=== PATIENT | male | born 1960 | race Caucasian/White ===

== ENCOUNTER 2017-07-20 09:46 | Inpatient (IN) | payer OTHER ==
[2017-07-20 10:12] VITALS: BMI 26.3
--- NOTE | 2017-07-20 12:26 | HP ---
CIWA Score - CIWA Score Nausea/Vomitin-No Nausea/No Vomiting Muscle Tremors: 3 Anxiety: 4-Mod. Anxious/Guarded Agitation: 0-Normal Activity Paroxysmal Sweats: 2 Orientation: 0-Oriented Tacttile Disturbances: 2-Mild Itch/Numbness/Burn Auditory Disturbances: 0-None Visual Disturbances: 0-None Headache: 1-Very Mild CIWA-Ar Total Score: 12 Admission ROS S - HPI Chief Complaint: ETOH withdrawal symptoms. Allergies/Adverse Reactions: Allergies Allergy/AdvReac Type Severity Reaction Status Date / Time No Known Allergies Allergy Verified 07/20/17 11:41 History of Present Illness: PATIENT PRESENTS FOR ETOH WITHDRAWAL SYMPTOMS. LAST ATTEMPT OF DETOX HERE AT [facility] IN 2010. PATIENT STARTED DRINKING AT AGE 14. PATIENT DRINKS UP TO 12 BEERS DAILY. DENIES SEIZURES FROM USE OR WITHDRAWAL. PATIENT HAS HISTORY OF PANIC ATTACK WHICH IS TREATED WITH KLONIPIN BY PARTHA OSMAN NP AND VERIFIED BY ISTOP # [id number]. PATIENT TAKES MEDICATION PRN. LAST DOSE THIS MORNING AFTER NOT TAKING MEDICATION X ONE WEEK. PATIENT HAS HX OF HIV, HTN, GERD AND HLD. PATIENT REPORTS WHEN HE DRINKS HE DOES NOT TAKE KLONIPIN AND TAKES 1/2 PILL WHEN HE DOES. DENIES SI/HI AND SUICIDE ATTEMPTS. Exam Limitations: No Limitations - Ebola screening Have you traveled outside of the country in the last 21 days: No (N) Have you had contact with anyone from an Ebola affected area: No Have you been sick,other than usual withdrawal symptoms: No Do you have a fever: No - Review of Systems Constitutional: Changes in sleep, Weight Stable EENT: reports: No Symptoms Reported Respiratory: reports: No Symptoms reported Cardiac: reports: No Symptoms Reported GI: reports: Poor Fluid Intake : reports: No Symptoms Reported Musculoskeletal: reports: Back Pain, Joint Pain, Muscle Pain Integumentary: reports: Sweating Neuro: reports: Headache, Numbness, Tremors Endocrine: reports: No Symptoms Reported Hematology: reports: No Symptoms Reported Psychiatric: reports: Orientated x3, Anxious, Depressed Patient History - Patient Medical History Hx Anemia: No Hx Asthma: No Hx Chronic Obstructive Pulmonary Disease (COPD): No Hx Cancer: No Hx Cardiac Disorders: No Hx Congestive Heart Failure: No Hx Hypertension: Yes Hx Hypercholesterolemia: Yes Hx Pacemaker: No HX Cerebrovascular Accident: No Hx Seizures: No Hx Dementia: No Hx Diabetes: No Hx Gastrointestinal Disorders: No Hx Liver Disease: Yes (hep c treated 2005) Hx Genitourinary Disorders: No Hx Sexually Transmitted Disorders: Yes (hiv) Hx Renal Disease (ESRD): No Hx Thyroid Disease: No Hx Human Immunodeficiency Virus (HIV): Yes (treated with Gemvoya, pt advised to have family bring meds) Hx Hepatitis C: Yes (Hep c treated in 2005) Hx Depression: Yes Hx Suicide Attempt: No Hx Schizophrenia: No - Patient Surgical History Past Surgical History: Yes Hx Neurologic Surgery: No Hx Cataract Extraction: No Hx Cardiac Surgery: No Hx Lung Surgery: No Hx Breast Surgery: No Hx Breast Biopsy: No Hx Abdominal Surgery: No Hx Appendectomy: No Hx Cholecystectomy: Yes Hx Genitourinary Surgery: No Hx Orthopedic Surgery: No Anesthesia Reaction: No - PPD History Documented Results: Negative w/o proof Implanted On Prior [facility] Admission?: No PPD to be Administered?: Yes - Reproductive History Patient : No - Smoking Cessation Smoking history: Current some day smoker Aproximately how many cigarettes per day: 1 Hx Chewing Tobacco Use: No Initiated information on smoking cessation: Yes 'Breaking Loose' booklet given: 07/20/17 - Substance & Tx. History Hx Alcohol Use: Yes Hx Substance Use: No Substance Use Type: Alcohol Hx Substance Use Treatment: Yes ([facility] 2010) - Substances Abused Alcohol Route: Oral Frequency: Daily Amount used: Beer 12- 120z Beer Age of first use: 12 Date of Last Use: 07/20/17 Family Disease History - Family Disease History Family Disease History: CA: Father (Prostate cancer, alive) Admission Physical Exam S - Vital Signs Vital Signs: Vital Signs - 24 hr 07/20/17 10:11 Temperature 98 F Pulse Rate 89 Respiratory 18 Rate Blood Pressure 139/81 - Physical General Appearance: Yes: No Apparent Distress, Nourished, Appropriately Dressed , Tremorous, Sweating, Anxious HEENTM: Yes: EOMI, Hearing grossly Normal, Normal ENT Inspection, Normocephalic , Normal Voice, GABBI, Pharynx Normal Respiratory: Yes: Chest Non-Tender, Lungs Clear, Normal Breath Sounds, No Respiratory Distress, No Accessory Muscle Use Neck: Yes: No masses,lesions,Nodules, Supple, Trachea in good position Breast: Yes: Breast Exam Deferred Cardiology: Yes: Within Normal Limits, Regular Rhythm, Regular Rate, S1, S2 Abdominal: Yes: Normal Bowel Sounds, Non Tender, Flat, Soft Genitourinary: Yes: Within Normal Limits Back: Yes: Normal Inspection, Muscle Spasm Musculoskeletal: Yes: full range of Motion, Gait Steady, Back pain, Muscle Pain Extremities: Yes: Normal Inspection, Normal Range of Motion, Non-Tender, Tremors Neurological: Yes: hand edge bander II-XII NML intact, Fully Oriented, Alert, Motor Strength 5/5, Depressed Affect Integumentary: Yes: Normal Color, Warm, Moist Lymphatic: Yes: Within Normal Limits - Diagnostic (1) Alcohol dependence with uncomplicated withdrawal Current Visit: Yes Status: Acute (2) Anxiety Current Visit: Yes Status: Acute (3) HIV (human immunodeficiency virus infection) Current Visit: Yes Status: Acute (4) HTN (hypertension) Current Visit: Yes Status: Acute Qualifiers: Hypertension type: essential hypertension Qualified Code(s): I10 - Essential (primary) hypertension (5) HLD (hyperlipidemia) Current Visit: Yes Status: Acute Qualifiers: Hyperlipidemia type: unspecified Qualified Code(s): E78.5 - Hyperlipidemia , unspecified (6) GERD (gastroesophageal reflux disease) Current Visit: Yes Status: Acute Qualifiers: Esophagitis presence: without esophagitis Qualified Code(s): K21.9 - Gastro -esophageal reflux disease without esophagitis Cleared for Admission S - Detox or Rehab [facility] Level of Care: Medically Managed Detox Regimen/Protocol: Librium [facility] Breath Alcohol Content Breath Alcohol Content: 0.050 Urine Drug Screen - Results Drug Screen Negative: Yes
[2017-07-20] MEDS ORDERED: MAGNESIUM CITRATE 300 ML BOTTLE PO PRN (12:39)
[2017-07-20] MEDS ORDERED: MENTHOL/PHENOL 1 EACH UD MM PRN (12:39)
[2017-07-20] MEDS ORDERED: MAG HYDROX/AL HYDROX/SIMETH 30 ML UNIT-DOSE CUP PO PRN (12:39)
[2017-07-20] MEDS ORDERED: MAGNESIUM HYDROX 2400MG/30ML ORAL SUSPENSION 30 ML CUP PO PRN (12:39)
[2017-07-20] MEDS ORDERED: P-EPHED 60MG/TRIPROLIDI 2.5MG TABLET PO PRN (12:39)
[2017-07-20] MEDS ORDERED: LOPERAMIDE HCL 2 MG CAPSULE PO PRN (12:39)
[2017-07-20] MEDS ORDERED: NICOTINE POLACRILEX 2 MG GUM BUC PRN (12:39)
[2017-07-20] MEDS ORDERED: ACETAMINOPHEN 325 MG TABLET (FP) PO PRN (12:39)
[2017-07-20] MEDS ORDERED: guaiFENesin/D-METHORPHAN HB 10 ML UNIT-DOSE CUPS PO PRN (12:39)
[2017-07-20] MEDS ORDERED: hydrOXYzine PAMOATE 50 MG CAPSULE (FP) PO PRN (12:39)
[2017-07-20] MEDS ORDERED: chlordiazePOXIDE HCL 25 MG CAPSULE PO PRN (12:42)
[2017-07-20] MEDS ORDERED: chlordiazePOXIDE HCL 25 MG CAPSULE PO ONE (13:00)
--- NOTE | 2017-07-20 14:39 | CONSULT ---
[facility] Psychiatric Consult - Data Date of interview: 07/20/17 Admission source: [facility] Identifying data: Patient is a 57 year old single [place] male, father of one, domiciled, and supported by [facility]. This is one of multiple admissions for patient. Pt. admitted to for alcohol dependence. Substance Abuse History: Smoking Cessation. Smoking history: Current some day smoker. Aproximately how many cigarettes per day: 1. Hx Chewing Tobacco Use: No. Initiated information on smoking cessation: Yes. 'Breaking Loose' booklet given: 07/20/17. - Substance & Tx. History. Hx Alcohol Use: Yes. Hx Substance Use: No. Substance Use Type: Alcohol. Hx Substance Use Treatment: Yes ([facility] 2010). - Substances Abused. Alcohol. Route: Oral. Frequency: Daily. Amount used: Beer 12- 120z Beer. Age of first use: 12. Date of Last Use: 07/20/17 Medical History: Hypertension, HIV Psychiatric History: Patient denies h/o psychiatric hospitalizations and suicide attempts. OPD is provided at the [facility]. Diagnosis of anxiety and is prescribed klonopin 1mg BID. Pt. reports poor sleep and is willing to accept melatonin 5mg. Physical/Sexual Abuse/Trauma History: Denies. Mental Status Exam - Mental Status Exam Alert and Oriented to: Time, Place, Person Cognitive Function: Good Patient Appearance: Well Groomed Mood: Hopeful Affect: Mood Congruent Patient Behavior: Appropriate, Cooperative Speech Pattern: Clear, Appropriate Voice Loudness: Normal Thought Process: Intact, Goal Oriented Thought Disorder: Not Present Hallucinations: Denies Suicidal Ideation: Denies Homicidal Ideation: Denies Insight/Judgement: Poor Sleep: Poorly Appetite: Good Muscle strength/Tone: Normal Gait/Station: Normal Psychiatric Findings - Problem List ([place] 1, 2,3) (1) Insomnia Current Visit: Yes Status: Acute (2) Alcohol dependence with uncomplicated withdrawal Current Visit: Yes Status: Acute (3) Anxiety Current Visit: Yes Status: Suspected - Initial Treatment Plan Initial Treatment Plan: Psychoeducation provided. Detoxification in progress. Melatonin 5mg and vistaril 50mg ordered by PURCHASING ADMINISTRATIVE ASSISTANT. Pt. informed of PRN's ordered. Will continue to monitor.
[2017-07-20] MEDS: chlordiazePOXIDE HCL 25 MG CAPSULE PO SCH ×2 (17:27→22:29)
[2017-07-20] MEDS: IBUPROFEN 400 MG TABLET (FP) PO PRN (17:30)
[2017-07-20 17:52] LABS: URINE APPEARANCE CLEAR; URINE BILIRUBIN NEGATIVE (<2.0 mg/dL); URINE BLOOD 1+ (NEGATIVE); URINE COLOR LTYELLOW; URINE GLUCOSE (UA) NEGATIVE (NEGATIVE); URINE KETONE NEGATIVE (NEGATIVE); URINE LEUK ESTERASE NEGATIVE (NEGATIVE); URINE NITRITE NEGATIVE (NEGATIVE); URINE PROTEIN NEGATIVE (NEGATIVE); URINE UROBILINOGEN NEGATIVE mg/dL (0.2-1.0)
[2017-07-20] MEDS: THIAMINE HCL 100 MG TABLET (FP) PO SCH (22:30)
[2017-07-20] MEDS: MELATONIN 5 MG TABLETS PO PRN (22:33)
[2017-07-21] MEDS: chlordiazePOXIDE HCL 25 MG CAPSULE PO SCH ×4 (05:28→22:29)
[2017-07-21] MEDS ORDERED: FENOFIBRATE 134 MG PO SCH (10:00)
[2017-07-21] MEDS ORDERED: CYCLOBENZAPRINE HCL 10 MG TABLET (FP) PO PRN (10:34)
[2017-07-21] MEDS: PRENATAL VITAMINS W/ FOLIC ACID TABLET (FP) PO SCH (10:41)
[2017-07-21] MEDS: PANTOPRAZOLE 40 MG TABLET (FP) PO SCH (10:41)
[2017-07-21] MEDS: LISINOPRIL 5 MG TABLET (FP) PO SCH (10:41)
[2017-07-21] MEDS: NICOTINE 14 MG/24 HOURS TOPICAL PATCH TD SCH (10:42)
[2017-07-21] MEDS: FENOFIBRIC ACID 135 MG CAP PO SCH (10:42)
[2017-07-21] MEDS: RANITIDINE HCL 150 MG TABLET (FP) PO SCH (10:43)
[2017-07-21 10:55] LABS: HEMATOCRIT 48.4 % (35.4-49); HEMOGLOBIN 16.5 GM/dL (11.7-16.9); MCH 31.5 pg (25.7-33.7); MCHC 34.1 g/dl (32.0-35.9); MEAN CELL VOLUME 92.3 fl (80-96); MEAN PLT VOLUME 10.4 fl (7.5-11.1); PLATELET COUNT 228 K/MM3 (134-434); RBC 5.24 M/mm3 (4.00-5.60); RDW 12.8 % (11.9-15.9); WHITE BLOOD COUNT 6.7 K/mm3 (4.0-10.0)
[2017-07-21 11:04] LABS: CHLORIDE 101 mmol/L (98-107); POTASSIUM 4.5 mmol/L (3.5-5.1); SODIUM 137 mmol/L (136-145)
[2017-07-21 11:24] LABS: ALBUMIN 4.4 g/dl (3.4-5.0); ALK PHOS 78 U/L (45-117); ANION GAP 8 (8-16); BILIRUBIN,TOTAL 0.4 mg/dL (0.2-1.0); BLOOD UREA NITROGEN 15 mg/dL (7-18); CALCIUM 10.3 mg/dL (8.5-10.1); CO2 28 mmol/L (21-32); CREATININE 1.4 mg/dL (0.7-1.3); GLUCOSE,RANDOM 108 mg/dL (74-106); SGOT/AST 25 U/L (15-37); SGPT/ALT 32 U/L (12-78); TOT PROT 8.5 g/dl (6.4-8.2)
--- NOTE | 2017-07-21 14:51 | EKG ---
Test Reason : Blood Pressure : / mmHG Vent. Rate : 084 BPM Atrial Rate : 084 BPM P-R Int : 168 ms QRS Dur : 088 ms QT Int : 354 ms P-R-T Axes : 044 074 019 degrees QTc Int : 418 ms NORMAL SINUS RHYTHM NORMAL ECG NO PREVIOUS ECGS AVAILABLE Confirmed by MD Josr, Adithya ([id number]) on 07/21/2017 2:50:54 PM Referred By: Confirmed By:Adithya Ovalles MD
--- NOTE | 2017-07-21 16:39 | PN ---
[facility] CIWA - CIWA Score Nausea/Vomitin-No Nausea/No Vomiting Muscle Tremors: None Anxiety: 4-Mod. Anxious/Guarded Agitation: 4-Moderately Restless Paroxysmal Sweats: 3 Orientation: 0-Oriented Tacttile Disturbances: 2-Mild Itch/Numbness/Burn Auditory Disturbances: 3-Moderate Harsh/Frighten Visual Disturbances: 0-None Headache: 0-None Present CIWA-Ar Total Score: 16 S Progress Note (SOAP) Subjective: Anxious, Body Aches, Stomach Cramping, Sweating. Objective: PATIENT A & O X 3, OBSERVED AMBULATING ON UNIT. NO ACUTE DISTRESS. 07/21/17 16:36 Vital Signs Temperature 98.2 F 07/21/17 13:51 Pulse Rate 84 07/21/17 13:51 Respiratory Rate 20 07/21/17 13:51 Blood Pressure 145/90 07/21/17 13:51 O2 Sat by Pulse Oximetry (%) Laboratory Tests 07/20/17 07/21/17 07/21/17 14:00 06:00 06:00 WBC 6.7 RBC 5.24 Hgb 16.5 Hct 48.4 MCV 92.3 MCH 31.5 MCHC 34.1 RDW 12.8 Plt Count 228 MPV 10.4 Sodium 137 Potassium 4.5 Chloride 101 Carbon Dioxide 28 Anion Gap 8 BUN 15 Creatinine 1.4 H Creat Clearance w eGFR 52.05 Random Glucose 108 H Calcium 10.3 H Total Bilirubin 0.4 AST 25 ALT 32 Alkaline Phosphatase 78 Total Protein 8.5 H Albumin 4.4 Urine Color Ltyellow Urine Appearance Clear Urine pH 6.0 Ur Specific [place] 1.015 Urine Protein Negative Urine Glucose (UA) Negative Urine Ketones Negative Urine Blood 1+ H Urine Nitrite Negative Urine Bilirubin Negative Urine Urobilinogen Negative Ur Leukocyte Esterase Negative Urine WBC (Auto) 1 Urine RBC (Auto) 6 RPR Titer 07/21/17 06:00 WBC RBC Hgb Hct MCV MCH MCHC RDW Plt Count MPV Sodium Potassium Chloride Carbon Dioxide Anion Gap BUN Creatinine Creat Clearance w eGFR Random Glucose Calcium Total Bilirubin AST ALT Alkaline Phosphatase Total Protein Albumin Urine Color Urine Appearance Urine pH Ur Specific [place] Urine Protein Urine Glucose (UA) Urine Ketones Urine Blood Urine Nitrite Urine Bilirubin Urine Urobilinogen Ur Leukocyte Esterase Urine WBC (Auto) Urine RBC (Auto) RPR Titer Nonreactive LABS NOTED. Assessment: 07/21/17 16:37 WITHDRAWAL SYMPTOMS. Plan: CONTINUE DETOX. INCREASE DAILY PO FLUID INTAKE,.
[2017-07-21] MEDS: MELATONIN 5 MG TABLETS PO PRN (22:29)
[2017-07-21] MEDS: THIAMINE HCL 100 MG TABLET (FP) PO SCH (22:29)
[2017-07-21] MEDS: IBUPROFEN 400 MG TABLET (FP) PO PRN (22:32)
[2017-07-22] MEDS: chlordiazePOXIDE HCL 25 MG CAPSULE PO SCH ×2 (05:37→10:21)
[2017-07-22] MEDS: FENOFIBRIC ACID 135 MG CAP PO SCH (10:21)
[2017-07-22] MEDS: RANITIDINE HCL 150 MG TABLET (FP) PO SCH (10:21)
[2017-07-22] MEDS: NICOTINE 14 MG/24 HOURS TOPICAL PATCH TD SCH (10:21)
[2017-07-22] MEDS: PRENATAL VITAMINS W/ FOLIC ACID TABLET (FP) PO SCH (10:21)
[2017-07-22] MEDS: LISINOPRIL 5 MG TABLET (FP) PO SCH (10:21)
[2017-07-22] MEDS: PANTOPRAZOLE 40 MG TABLET (FP) PO SCH (10:21)
--- NOTE | 2017-07-22 12:44 | PN ---
[facility] CIWA - CIWA Score Nausea/Vomitin-No Nausea/No Vomiting Muscle Tremors: 4-Moderate,w/Arms Extend Anxiety: 4-Mod. Anxious/Guarded Agitation: 4-Moderately Restless Paroxysmal Sweats: 1-Minimal Palms Moist Orientation: 0-Oriented Tacttile Disturbances: 0-None Auditory Disturbances: 0-None Visual Disturbances: 0-None Headache: 0-None Present CIWA-Ar Total Score: 13 S Progress Note (SOAP) Subjective: SLIGHT ANXIETY, REPORTS DETOX PROCEEDING WELL. ALERT O X 3. OOB WITH STEADY GAIT. PT REPORTS HE HAS PRIMARY CARE WITH DR BRIGETTE MACK AT [facility]. PT REQUESTING EARLY MEDICATION TAPER. Objective: 07/22/17 12:41 Vital Signs 07/22/17 07/22/17 06:13 09:49 Temperature 96.1 F L 96.7 F L Pulse Rate 61 66 Respiratory 18 18 Rate Blood Pressure 106/62 130/88 Laboratory Tests 07/20/17 07/21/17 07/21/17 14:00 06:00 06:00 WBC 6.7 RBC 5.24 Hgb 16.5 Hct 48.4 MCV 92.3 MCH 31.5 MCHC 34.1 RDW 12.8 Plt Count 228 MPV 10.4 Sodium 137 Potassium 4.5 Chloride 101 Carbon Dioxide 28 Anion Gap 8 BUN 15 Creatinine 1.4 H Creat Clearance w eGFR 52.05 Random Glucose 108 H Calcium 10.3 H Total Bilirubin 0.4 AST 25 ALT 32 Alkaline Phosphatase 78 Total Protein 8.5 H Albumin 4.4 Urine Color Ltyellow Urine Appearance Clear Urine pH 6.0 Ur Specific [place] 1.015 Urine Protein Negative Urine Glucose (UA) Negative Urine Ketones Negative Urine Blood 1+ H Urine Nitrite Negative Urine Bilirubin Negative Urine Urobilinogen Negative Ur Leukocyte Esterase Negative Urine WBC (Auto) 1 Urine RBC (Auto) 6 RPR Titer 07/21/17 06:00 WBC RBC Hgb Hct MCV MCH MCHC RDW Plt Count MPV Sodium Potassium Chloride Carbon Dioxide Anion Gap BUN Creatinine Creat Clearance w eGFR Random Glucose Calcium Total Bilirubin AST ALT Alkaline Phosphatase Total Protein Albumin Urine Color Urine Appearance Urine pH Ur Specific [place] Urine Protein Urine Glucose (UA) Urine Ketones Urine Blood Urine Nitrite Urine Bilirubin Urine Urobilinogen Ur Leukocyte Esterase Urine WBC (Auto) Urine RBC (Auto) RPR Titer Nonreactive Assessment: 07/22/17 12:42 SLIGHT WITHDRAWAL SX Plan: CONTINUE DETOX INCREASE PO FLUIDS
[2017-07-22] MEDS: CYCLOBENZAPRINE HCL 10 MG TABLET (FP) PO SCH ×2 (14:13→22:15)
[2017-07-22] MEDS: TETRAHYDROZOLINE HCL EYE DROPS OU SCH ×2 (16:06→22:15)
[2017-07-22] MEDS: chlordiazePOXIDE 5 MG CAPSULE PO SCH ×2 (17:13→22:15)
[2017-07-22] MEDS: THIAMINE HCL 100 MG TABLET (FP) PO SCH (22:14)
[2017-07-22] MEDS: MELATONIN 5 MG TABLETS PO PRN (22:16)
[2017-07-23] MEDS ORDERED: chlordiazePOXIDE HCL 10 MG CAPSULE PO SCH ×2 (05:00→17:00)
[2017-07-23] MEDS: CYCLOBENZAPRINE HCL 10 MG TABLET (FP) PO SCH (06:17)
[2017-07-23 06:23] VITALS: BP 107/81; PULSE 75; TEMP 97
--- NOTE | 2017-07-23 09:07 | PN ---
[facility] Progress Note (SOAP) Subjective: DETOX COMPLETED. ALERT O X 3. PT STATES HE WILL FOLLOW UP WITH HIS PMD DR BRIGETTE MACK AT [facility], Objective: 07/23/17 09:07 Vital Signs 07/23/17 07/23/17 03:30 06:22 Temperature 97.0 F L Pulse Rate 75 Respiratory 18 18 Rate Blood Pressure 107/81 Laboratory Tests 07/20/17 07/21/17 07/21/17 14:00 06:00 06:00 WBC 6.7 RBC 5.24 Hgb 16.5 Hct 48.4 MCV 92.3 MCH 31.5 MCHC 34.1 RDW 12.8 Plt Count 228 MPV 10.4 Sodium 137 Potassium 4.5 Chloride 101 Carbon Dioxide 28 Anion Gap 8 BUN 15 Creatinine 1.4 H Creat Clearance w eGFR 52.05 Random Glucose 108 H Calcium 10.3 H Total Bilirubin 0.4 AST 25 ALT 32 Alkaline Phosphatase 78 Total Protein 8.5 H Albumin 4.4 Urine Color Ltyellow Urine Appearance Clear Urine pH 6.0 Ur Specific [place] 1.015 Urine Protein Negative Urine Glucose (UA) Negative Urine Ketones Negative Urine Blood 1+ H Urine Nitrite Negative Urine Bilirubin Negative Urine Urobilinogen Negative Ur Leukocyte Esterase Negative Urine WBC (Auto) 1 Urine RBC (Auto) 6 RPR Titer 07/21/17 06:00 WBC RBC Hgb Hct MCV MCH MCHC RDW Plt Count MPV Sodium Potassium Chloride Carbon Dioxide Anion Gap BUN Creatinine Creat Clearance w eGFR Random Glucose Calcium Total Bilirubin AST ALT Alkaline Phosphatase Total Protein Albumin Urine Color Urine Appearance Urine pH Ur Specific [place] Urine Protein Urine Glucose (UA) Urine Ketones Urine Blood Urine Nitrite Urine Bilirubin Urine Urobilinogen Ur Leukocyte Esterase Urine WBC (Auto) Urine RBC (Auto) RPR Titer Nonreactive Assessment: 07/23/17 09:07 MEDICALLY STABLE Plan: D/C PT TODAY
--- NOTE | 2017-07-23 09:10 | DS ---
[facility] Detox Discharge Summary Admission Date: 07/20/17 Discharge Date: 07/23/17 - Physical Exam Results Vital Signs: Vital Signs Temperature 97.0 F L 07/23/17 06:22 Pulse Rate 75 07/23/17 06:22 Respiratory Rate 18 07/23/17 06:22 Blood Pressure 107/81 07/23/17 06:22 O2 Sat by Pulse Oximetry (%) Pertinent Admission Physical Exam Findings: WITHDRAWAL SX Laboratory Tests 07/20/17 07/21/17 07/21/17 14:00 06:00 06:00 WBC 6.7 RBC 5.24 Hgb 16.5 Hct 48.4 MCV 92.3 MCH 31.5 MCHC 34.1 RDW 12.8 Plt Count 228 MPV 10.4 Sodium 137 Potassium 4.5 Chloride 101 Carbon Dioxide 28 Anion Gap 8 BUN 15 Creatinine 1.4 H Creat Clearance w eGFR 52.05 Random Glucose 108 H Calcium 10.3 H Total Bilirubin 0.4 AST 25 ALT 32 Alkaline Phosphatase 78 Total Protein 8.5 H Albumin 4.4 Urine Color Ltyellow Urine Appearance Clear Urine pH 6.0 Ur Specific [place] 1.015 Urine Protein Negative Urine Glucose (UA) Negative Urine Ketones Negative Urine Blood 1+ H Urine Nitrite Negative Urine Bilirubin Negative Urine Urobilinogen Negative Ur Leukocyte Esterase Negative Urine WBC (Auto) 1 Urine RBC (Auto) 6 RPR Titer 07/21/17 06:00 WBC RBC Hgb Hct MCV MCH MCHC RDW Plt Count MPV Sodium Potassium Chloride Carbon Dioxide Anion Gap BUN Creatinine Creat Clearance w eGFR Random Glucose Calcium Total Bilirubin AST ALT Alkaline Phosphatase Total Protein Albumin Urine Color Urine Appearance Urine pH Ur Specific [place] Urine Protein Urine Glucose (UA) Urine Ketones Urine Blood Urine Nitrite Urine Bilirubin Urine Urobilinogen Ur Leukocyte Esterase Urine WBC (Auto) Urine RBC (Auto) RPR Titer Nonreactive - Treatment Hospital Course: Detox Protocol Followed, Detoxed Safely, Responded well, Discharged Condition Good - Medication Discharge Medications: Ambulatory Orders Clonazepam 1 mg PO PRN 07/20/17 Famotidine 20 mg PO DAILY 07/20/17 Fenofibrate 134 mg PO DAILY 07/20/17 Genvoya (Non-Formulary) 1 tab PO DAILY 07/20/17 Lisinopril [Prinivil] 5 mg PO DAILY 07/20/17 - Diagnosis (1) Alcohol dependence with uncomplicated withdrawal Current Visit: Yes Status: Acute (2) GERD (gastroesophageal reflux disease) Current Visit: Yes Status: Chronic Qualifiers: Esophagitis presence: without esophagitis Qualified Code(s): K21.9 - Gastro -esophageal reflux disease without esophagitis (3) HLD (hyperlipidemia) Current Visit: Yes Status: Chronic Qualifiers: Hyperlipidemia type: unspecified Qualified Code(s): E78.5 - Hyperlipidemia , unspecified (4) HIV (human immunodeficiency virus infection) Current Visit: Yes Status: Chronic (5) HTN (hypertension) Current Visit: Yes Status: Chronic Qualifiers: Hypertension type: essential hypertension Qualified Code(s): I10 - Essential (primary) hypertension - AMA Did Patient Leave Against Medical Advice: No
[2017-07-23] MEDS ORDERED: GENVOYA PO SCH (10:00)
== END 2017-07-23 08:50 | disposition home or self-care (01) | DRG 897 ==
LOC: YASAS 09:46 → Y3N 12:52
PROVIDERS: ADMIT Surgery; ATTEND Surgery
PROC: HZ2ZZZZ Detoxification Services for Substance Abuse Treatment (ICD-10-PCS; principal; 2017-07-20)
DX: F10.230 Alcohol dependence with withdrawal, uncomplicated (principal); F17.200 Nicotine dependence, unspecified, uncomplicated; F41.9 Anxiety disorder, unspecified; I10 Essential (primary) hypertension; E78.5 Hyperlipidemia, unspecified; K21.9 Gastro-esophageal reflux disease without esophagitis; Z21 Asymptomatic human immunodeficiency virus [HIV] infection status; G47.00 Insomnia, unspecified; B18.2 Chronic viral hepatitis C
CPT/HCPCS: 36415; 80053; 81003; 81015; 85027; 86593; 93005; 93010

== ENCOUNTER 2018-02-26 11:31 | Inpatient (IN) | payer OTHER ==
[2018-02-26 12:11] VITALS: BMI 25.9
--- NOTE | 2018-02-26 14:04 | HP ---
CIWA Score Nausea/Vomitin Muscle Tremors: 3 Anxiety: 4-Mod. Anxious/Guarded Agitation: 0-Normal Activity Paroxysmal Sweats: 3 Orientation: 0-Oriented Tacttile Disturbances: 0-None Auditory Disturbances: 0-None Visual Disturbances: 0-None Headache: 0-None Present CIWA-Ar Total Score: 16 - Admission Criteria OASAS Guidelines: Admission for Medically Managed Detox: Requires at least one of the followin. CIWA greater than 12 2. Seizures within the past 24 hours 3. Delirium tremens within the past 24 hours 4. Hallucinations within the past 24 hours 5. Acute intervention needed for co occurring medical disorder 6. Acute intervention needed for co occurring psychiatric disorder 7. Severe withdrawal that cannot be handled at a lower level of care (continued vomiting, continued diarrhea, abnormal vital signs) requiring intravenous medication and/or fluids 8. Patient presents the following: CIWA greater than 12 Admission Criteria Met: Admission criteria met Admission ROS [facility] - HPI Allergies/Adverse Reactions: Allergies Allergy/AdvReac Type Severity Reaction Status Date / Time No Known Allergies Allergy Verified 02/26/18 13:15 History of Present Illness: patient here requesting detox from etoh use , reports 12 -pk /day since 4 months ago after personal stressors ( does not wish to disclose ) , prior social use on weekends , current symptoms as above , reports cravings , starts drinking in the mornings upon awakening, + blackouts , denies falls, denies driving . First age of use teens , sober x 3-4 years after detox at this facility . KIKE 0.051 utox neg tobacco : 1/2 ppd since teenage years . PMHX : HIV ( dx 1993 , RF= ST ) goes to [facility], latest 1 mo ago , currently on Genvoya , reports compliance w/ meds , HLD , htn on Lisinopril 5 mg , hep C ( tx 2004 Interferon , rf = ST ) PShx : allegra 9 years ago , PSych : depression SHx : lives alone , unemployed on SSD Exam Limitations: Clinical Condition - Ebola screening Have you traveled outside of the country in the last 21 days: No Have you had contact with anyone from an Ebola affected area: No Have you been sick,other than usual withdrawal symptoms: No Do you have a fever: No - Review of Systems Constitutional: See HPI EENT: reports: Other (reading glasses , denies dysphagia) Respiratory: reports: No Symptoms reported Cardiac: reports: No Symptoms Reported GI: reports: See HPI : reports: No Symptoms Reported Musculoskeletal: reports: No Symptoms Reported Integumentary: reports: No Symptoms Reported Neuro: reports: No Symptoms reported Psychiatric: reports: Orientated x3, Anxious Patient History - Patient Medical History Hx Anemia: No Hx Asthma: No Hx Chronic Obstructive Pulmonary Disease (COPD): No Hx Cancer: No Hx Cardiac Disorders: No Hx Congestive Heart Failure: No Hx Hypertension: Yes (ON MEDS.) Hx Hypercholesterolemia: Yes Hx Pacemaker: No HX Cerebrovascular Accident: No Hx Seizures: No Hx Dementia: No Hx Diabetes: No Hx Gastrointestinal Disorders: Yes (hx of gastritis acid reflux.) Hx Liver Disease: Yes (hep c treated 2005) Hx Genitourinary Disorders: No Hx Sexually Transmitted Disorders: No Hx Renal Disease (ESRD): No Hx Thyroid Disease: No Hx Human Immunodeficiency Virus (HIV): Yes (treated with Gemvoya, pt advised to have family bring meds) Hx Hepatitis C: Yes (Hep c treated in 2005) Hx Depression: No Hx Suicide Attempt: No Hx Schizophrenia: No - Patient Surgical History Past Surgical History: Yes Hx Neurologic Surgery: No Hx Cataract Extraction: No Hx Cardiac Surgery: No Hx Lung Surgery: No Hx Breast Surgery: No Hx Breast Biopsy: No Hx Abdominal Surgery: No Hx Appendectomy: No Hx Cholecystectomy: Yes Hx Genitourinary Surgery: No Hx Section: No Hx Orthopedic Surgery: No Anesthesia Reaction: No - PPD History Previous Implant?: Yes Documented Results: Negative w/proof Implanted On Prior [facility] Admission?: Yes Date: 07/22/17 Results: 0 MM - Smoking Cessation Smoking history: Current every day smoker Aproximately how many cigarettes per day: 12 Hx Chewing Tobacco Use: No Initiated information on smoking cessation: No - Substances Abused Alcohol Route: Oral Frequency: Daily Amount used: 12PK BEER Age of first use: 13 Date of Last Use: 02/26/18 Family Disease History - Family Disease History Family Disease History: CA: Father (Prostate cancer, alive) Admission Physical Exam B[facility] - Vital Signs Vital Signs: Vital Signs - 24 hr 02/26/18 12:08 Temperature 97.4 F L Pulse Rate 87 Respiratory 16 Rate Blood Pressure 143/106 H - Physical General Appearance: Yes: Moderate Distress, Alcohol on Breath, Anxious HEENTM: Yes: EOMI, Hearing grossly Normal, Normocephalic, Normal Voice Respiratory: Yes: Chest Non-Tender, Lungs Clear, Normal Breath Sounds Neck: Yes: No masses,lesions,Nodules, Trachea in good position Breast: Yes: Breast Exam Deferred Cardiology: Yes: Regular Rhythm, Regular Rate, S1, S2 Abdominal: Yes: Non Tender, Soft Genitourinary: Yes: Within Normal Limits Back: Yes: Normal Inspection Musculoskeletal: Yes: Other (staggering) Extremities: Yes: Normal Capillary Refill, Tremors Neurological: Yes: Fully Oriented, Alert, Motor Strength 5/5 Integumentary: Yes: Normal Color, Dry, Warm - Diagnostic (1) Nicotine dependence Current Visit: Yes Status: Chronic Qualifiers: Nicotine product type: cigarettes (2) Alcohol dependence with uncomplicated withdrawal Current Visit: No Status: Acute BHS Breath Alcohol Content Breath Alcohol Content: 0.051 Urine Drug Screen - Results Drug Screen Negative: Yes
[2018-02-26] MEDS ORDERED: guaiFENesin/D-METHORPHAN HB 10 ML UNIT-DOSE CUPS PO PRN (14:12)
[2018-02-26] MEDS ORDERED: NICOTINE POLACRILEX 2 MG GUM BUC PRN (14:12)
[2018-02-26] MEDS ORDERED: MAGNESIUM HYDROX 2400MG/30ML ORAL SUSPENSION 30 ML CUP PO PRN (14:12)
[2018-02-26] MEDS ORDERED: ACETAMINOPHEN 325 MG TABLET (FP) PO PRN (14:12)
[2018-02-26] MEDS ORDERED: MAGNESIUM CITRATE 300 ML BOTTLE PO PRN (14:12)
[2018-02-26] MEDS ORDERED: P-EPHED 60MG/TRIPROLIDI 2.5MG TABLET PO PRN (14:12)
[2018-02-26] MEDS ORDERED: chlordiazePOXIDE HCL 25 MG CAPSULE PO PRN (14:12)
[2018-02-26] MEDS ORDERED: LOPERAMIDE HCL 2 MG CAPSULE PO PRN (14:12)
[2018-02-26] MEDS ORDERED: MENTHOL/PHENOL 1 EACH UD MM PRN (14:12)
[2018-02-26] MEDS: chlordiazePOXIDE HCL 25 MG CAPSULE PO SCH ×2 (16:45→22:20)
[2018-02-26] MEDS: FENOFIBRIC ACID 135 MG CAP PO SCH (18:09)
[2018-02-26] MEDS: ELVITEG/COB/EMTRI/TENOF (GENVOYA) TABLET (NF) PO SCH (18:09)
[2018-02-26] MEDS: THIAMINE HCL 100 MG TABLET (FP) PO SCH (22:20)
[2018-02-26] MEDS: MELATONIN 5 MG TABLETS PO PRN (22:20)
[2018-02-27] MEDS: chlordiazePOXIDE HCL 25 MG CAPSULE PO SCH ×4 (05:31→22:07)
[2018-02-27 10:31] LABS: HEMATOCRIT 46.7 % (35.4-49); MCHC 34.2 g/dl (32.0-35.9); MEAN CELL VOLUME 93.5 fl (80-96); MEAN PLT VOLUME 10.5 fl (7.5-11.1); PLATELET COUNT 176 K/MM3 (134-434); RDW 14.3 % (11.9-15.9); WHITE BLOOD COUNT 7.2 K/mm3 (4.0-10.0)
[2018-02-27 10:51] LABS: ALBUMIN 4.5 g/dl (3.4-5.0); ALK PHOS 83 U/L (45-117); ANION GAP 10 MMOL/L (8-16); BILIRUBIN,TOTAL 0.6 mg/dL (0.2-1); BLOOD UREA NITROGEN 16 mg/dL (7-18); CALCIUM 8.9 mg/dL (8.5-10.1); CHLORIDE 103 mmol/L (98-107); CO2 24 mmol/L (21-32); CREATININE 1.2 mg/dL (0.55-1.3); GLUCOSE,RANDOM 147 mg/dL (74-106); POTASSIUM 4.2 mmol/L (3.5-5.1); SGOT/AST 45 U/L (15-37); SGPT/ALT 33 U/L (13-61); SODIUM 138 mmol/L (136-145); TOT PROT 8.3 g/dl (6.4-8.2)
[2018-02-27] MEDS: PRENATAL VITAMINS W/ FOLIC ACID TABLET (FP) PO SCH (10:59)
[2018-02-27] MEDS: ELVITEG/COB/EMTRI/TENOF (GENVOYA) TABLET (NF) PO SCH (10:59)
[2018-02-27] MEDS: FENOFIBRIC ACID 135 MG CAP PO SCH (10:59)
[2018-02-27] MEDS: LISINOPRIL 5 MG TABLET (FP) PO SCH (11:01)
[2018-02-27] MEDS: MAG HYDROX/AL HYDROX/SIMETH 30 ML UNIT-DOSE CUP PO PRN (11:02)
--- NOTE | 2018-02-27 11:32 | PN ---
[facility] CIWA - CIWA Score Nausea/Vomitin-No Nausea/No Vomiting Muscle Tremors: 3 Anxiety: 3 Agitation: 3 Paroxysmal Sweats: 3 Orientation: 0-Oriented Tacttile Disturbances: 0-None Auditory Disturbances: 0-None Visual Disturbances: 0-None Headache: 1-Very Mild CIWA-Ar Total Score: 13 S Progress Note (SOAP) Subjective: agitation anxiety sweats shakes acid reflux Objective: 02/27/18 11:32 Vital Signs Temperature 98.1 F 02/27/18 11:13 Pulse Rate 89 02/27/18 11:13 Respiratory Rate 18 02/27/18 11:13 Blood Pressure 146/93 02/27/18 11:13 O2 Sat by Pulse Oximetry (%) Laboratory Tests 02/27/18 02/27/18 06:00 06:00 WBC 7.2 RBC 5.00 Hgb 16.0 Hct 46.7 MCV 93.5 MCH 32.0 MCHC 34.2 RDW 14.3 D Plt Count 176 D MPV 10.5 Sodium 138 Potassium 4.2 Chloride 103 Carbon Dioxide 24 Anion Gap 10 BUN 16 Creatinine 1.2 Creat Clearance w eGFR > 60 Random Glucose 147 H Calcium 8.9 Total Bilirubin 0.6 AST 45 H ALT 33 Alkaline Phosphatase 83 Total Protein 8.3 H Albumin 4.5 aaox3 ambulating no acute distress Assessment: 02/27/18 11:33 withdrawal sx Plan: continue detox increase fluids zantac 150ml po bid MOM prn
[2018-02-27] MEDS: RANITIDINE HCL 150 MG TABLET (FP) PO SCH ×2 (14:05→22:07)
[2018-02-27] MEDS: THIAMINE HCL 100 MG TABLET (FP) PO SCH (22:07)
[2018-02-27] MEDS: MELATONIN 5 MG TABLETS PO PRN (22:08)
[2018-02-28] MEDS: chlordiazePOXIDE HCL 25 MG CAPSULE PO SCH ×2 (05:40→14:29)
[2018-02-28] MEDS: MAG HYDROX/AL HYDROX/SIMETH 30 ML UNIT-DOSE CUP PO PRN (08:24)
[2018-02-28 09:32] VITALS: BP 146/91; PULSE 76; TEMP 98.9
--- NOTE | 2018-02-28 09:44 | PN ---
[facility] Progress Note Note: pt c/o of severe abdominal upper quadrant pain /. Pt in position and tearing. BP 146/91, HR 76, temp 98.9. Pt expressed to go to ED. Report given to Dr. Graves for evaluation.
[2018-02-28] MEDS ORDERED: PANTOPRAZOLE 40 MG TABLET (FP) PO SCH (10:00)
[2018-02-28] MEDS: ELVITEG/COB/EMTRI/TENOF (GENVOYA) TABLET (NF) PO SCH (14:28)
[2018-02-28] MEDS: LISINOPRIL 5 MG TABLET (FP) PO SCH (14:29)
[2018-02-28] MEDS: PRENATAL VITAMINS W/ FOLIC ACID TABLET (FP) PO SCH (14:29)
[2018-02-28] MEDS: FENOFIBRIC ACID 135 MG CAP PO SCH (14:30)
[2018-02-28] MEDS: chlordiazePOXIDE 5 MG CAPSULE PO SCH ×2 (17:28→22:42)
[2018-02-28] MEDS: THIAMINE HCL 100 MG TABLET (FP) PO SCH (22:42)
[2018-03-01] MEDS ORDERED: chlordiazePOXIDE HCL 10 MG CAPSULE PO SCH (17:00)
== END 2018-02-28 23:54 | disposition short-term general hospital (02) | DRG 897 ==
LOC: YASAS 11:31 → Y6N 15:44
PROVIDERS: ADMIT Neuromusculoskeletal Medicine & OMM; ATTEND Neuromusculoskeletal Medicine & OMM
PROC: HZ2ZZZZ Detoxification Services for Substance Abuse Treatment (ICD-10-PCS; principal; 2018-02-26)
DX: F10.230 Alcohol dependence with withdrawal, uncomplicated (principal); F17.210 Nicotine dependence, cigarettes, uncomplicated; Z21 Asymptomatic human immunodeficiency virus [HIV] infection status; I10 Essential (primary) hypertension; E78.5 Hyperlipidemia, unspecified; B18.2 Chronic viral hepatitis C; R10.10 Upper abdominal pain, unspecified
CPT/HCPCS: 36415; 80053; 85027; 86593

== ENCOUNTER 2018-02-28 10:20 | Inpatient (IN) | payer OTHER ==
[2018-02-28 10:55] VITALS: BMI 24.4
[2018-02-28] MEDS ORDERED: PANTOPRAZOLE SODIUM 40 MG in SODIUM CHLORIDE 100 ML IVPB ONE (11:56)
[2018-02-28] MEDS ORDERED: SODIUM CHLORIDE 1,000 ML IV STA ×2 (11:56→11:58)
[2018-02-28] MEDS ORDERED: ONDANSETRON 4 MG/2 ML VIAL IVPUSH ONE (11:56)
[2018-02-28] MEDS ORDERED: morphine CARPU-JECT 2 MG/1 ML DISP.SYRIN IVPUSH ONE ×3 (11:56→16:13)
[2018-02-28] MEDS ORDERED: ONDANSETRON 4 MG/2 ML VIAL ONE (12:09)
[2018-02-28] MEDS ORDERED: morphine SULFATE 4 MG/ML VIAL ONE ×4 (12:09→21:05)
[2018-02-28] MEDS ORDERED: PANTOPRAZOLE SODIUM 40 MG VIAL ONE (12:09)
[2018-02-28 12:16] LABS: BASO % 0.7 % (0-2.0); EOS % 0.8 % (0-4.5); HEMATOCRIT 46.1 % (35.4-49); HEMOGLOBIN 16.1 GM/dL (11.7-16.9); LYMPH % 10.4 % (8-40); MCH 31.6 pg (25.7-33.7); MCHC 34.9 g/dl (32.0-35.9); MEAN CELL VOLUME 90.6 fl (80-96); MEAN PLT VOLUME 9.3 fl (7.5-11.1); MONO % 5.7 % (3.8-10.2); NEUT % 82.4 % (42.8-82.8); PLATELET COUNT 170 K/MM3 (134-434); RBC 5.09 M/mm3 (4.00-5.60); RDW 13.4 % (11.9-15.9); WHITE BLOOD COUNT 11.8 K/mm3 (4.0-10.0)
[2018-02-28 12:48] LABS: MAGNESIUM 2.3 mg/dL (1.8-2.4)
[2018-02-28 12:50] LABS: ALBUMIN 4.3 g/dl (3.4-5.0); ALK PHOS 85 U/L (45-117); ANION GAP 8 MMOL/L (8-16); BILIRUBIN,TOTAL 0.9 mg/dL (0.2-1); BLOOD UREA NITROGEN 19 mg/dL (7-18); CALCIUM 9.9 mg/dL (8.5-10.1); CHLORIDE 101 mmol/L (98-107); CO2 27 mmol/L (21-32); CREATININE 1.2 mg/dL (0.55-1.3); GLUCOSE,RANDOM 150 mg/dL (74-106); POTASSIUM 4.8 mmol/L (3.5-5.1); SGOT/AST 34 U/L (15-37); SGPT/ALT 29 U/L (13-61); SODIUM 136 mmol/L (136-145)
--- NOTE | 2018-02-28 13:28 | PDOC ---
History of Present Illness - General Chief Complaint: Pain Stated Complaint: ABD PAIN VOMITING Time Seen by Provider: 02/28/18 10:39 History Source: Patient, Unavil. due to pt. cond. - History of Present Illness Travel History: No Initial Comments: 02/28/18 13:27 58-year-old male with history of pancreatitis secondary to alcohol use and alcohol abuse presents to the emergency room for evaluation of epigastric pain along with nausea and vomiting since last night worsening severity since this a.m. Patient denies fever, chills, headache lower abdominal pain, chest pain or shortness of breath. Timing/Duration: reports: constant, getting worse Quality: reports: moderate, cramping, sharpness Abdominal Pain Onset Location: reports: RUQ, epigastric Pain Radiation: reports: no radiation Activities at Onset: reports: none Aggravating Factors: improves with: None Alleviating Factors: improves with: None Past History - Travel Traveled outside of the country in the last 30 days: No - Past Medical History Allergies/Adverse Reactions: Allergies Allergy/AdvReac Type Severity Reaction Status Date / Time No Known Allergies Allergy Verified 02/28/18 10:31 Home Medications: Ambulatory Orders Fenofibrate 134 mg PO DAILY 07/20/17 Lisinopril [Prinivil] 5 mg PO DAILY 07/20/17 Elviteg/Cob/Emtri/Tenof Alafen [Genvoya Tablet] 1 each PO DAILY 02/26/18 Anemia: No Asthma: No Cancer: No Cardiac Disorders: No CVA: No COPD: No CHF: No Dementia: No Diabetes: No GI Disorders: Yes (hx of gastritis acid reflux.) Disorders: No HTN: Yes (ON MEDS.) Hypercholesterolemia: Yes Kidney Stones: No Liver Disease: Yes (hep c treated 2005) Seizures: No Thyroid Disease: No - Surgical History Abdominal Surgery: No Appendectomy: No Cardiac Surgery: No Cholecystectomy: Yes Lung Surgery: No Neurologic Surgery: No Orthopedic Surgery: No - Reproductive History Testicular Surgery: No - Suicide/Smoking/Psychosocial Hx Smoking History: Never smoked Have you smoked in the past 12 months: No Number of Cigarettes Smoked Daily: 12 Information on smoking cessation initiated: No 'Breaking Loose' booklet given: 07/20/17 Hx Alcohol Use: No Drug/Substance Use Hx: No Substance Use Type: Alcohol Hx Substance Use Treatment: Yes Patient Lives Alone: No Abd/GI Specific PMHX - Complaint Specific PMHX Hepatitis: Yes (Hep C) Pancreatitis: Yes (tx in 2018) Review of Systems - Review of Systems Able to Perform ROS?: Yes Constitutional: No: Symptoms Reported HEENTM: No: Symptoms Reported Respiratory: No: Symptoms reported Cardiac (ROS): No: Symptoms Reported ABD/GI: Yes: Nausea, Poor Appetite, Poor Fluid Intake, Vomiting. No: Constipated, Diarrhea : No: Symptoms Reported Musculoskeletal: No: Symptoms Reported Integumentary: No: Symptoms Reported Neurological: No: Symptoms reported Hematologic/Lymphatic: No: Symptoms Reported *Physical Exam - Vital Signs Last Vital Signs Temp Pulse Resp BP Pulse Ox 97.7 F 69 16 151/95 100 02/28/18 10:20 02/28/18 10:20 02/28/18 10:20 02/28/18 10:20 02/28/18 10:20 - Physical Exam General Appearance: Yes: Nourished, Appropriately Dressed. No: Apparent Distress HEENT: positive: EOMI, GABBI, Pharynx Normal. negative: Pale Conjunctivae, Scleral Icterus (R), Scleral Icterus (L) Neck: positive: Supple Respiratory/Chest: positive: Lungs Clear, Normal Breath Sounds. negative: Respiratory Distress, Accessory Muscle Use Cardiovascular: positive: Regular Rhythm, Regular Rate. negative: Murmur Gastrointestinal/Abdominal: positive: Soft, Tenderness (Epigastric and right epigastric) Musculoskeletal: negative: CVA Tenderness Extremity: positive: Normal Capillary Refill Integumentary: positive: Normal Color, Warm, Moist Neurologic: positive: Motor Strength 5/5 ( ambulatory) Moderate Sedation - Procedure Monitoring Vital Signs: Procedure Monitoring Vital Signs Temperature 97.7 F 02/28/18 10:20 Pulse Rate 69 02/28/18 10:20 Respiratory Rate 16 02/28/18 10:20 Blood Pressure 151/95 02/28/18 10:20 O2 Sat by Pulse Oximetry (%) 100 02/28/18 10:20 ED Treatment Course - LABORATORY CBC & Chemistry Diagram: 02/28/18 12:00 02/28/18 11:56 - ADDITIONAL ORDERS Additional order review: Laboratory Results 02/28/18 02/28/18 02/28/18 12:30 11:57 11:56 Sodium 136 Potassium 4.8 Chloride 101 Carbon Dioxide 27 Anion Gap 8 BUN 19 H Creatinine 1.2 Creat Clearance w eGFR > 60 Random Glucose 150 H Lactic Acid 1.3 Calcium 9.9 Magnesium 2.3 Total Bilirubin 0.9 AST 34 ALT 29 Alkaline Phosphatase 85 LD Total 169 Total Protein 8.0 Albumin 4.3 Total Amylase 238 H Lipase 2572 H 02/28/18 12:00 RBC 5.09 MCV 90.6 MCHC 34.9 RDW 13.4 MPV 9.3 D Neutrophils % 82.4 Lymphocytes % 10.4 Monocytes % 5.7 Eosinophils % 0.8 Basophils % 0.7 - RADIOLOGY Radiology Studies Ordered: Category Date Time Status ABDOMEN & PELVIS CT WITH CONTR [CT] Stat CT Scan 02/28/18 11:56 Ordered - Medications Given in the ED: ED Medications Discontinued Medications Generic Name Dose Route Start Last Admin Trade Name Freq PRN Reason Stop Dose Admin Pantoprazole Sodium 40 mg/ 100 mls @ 200 mls/hr 02/28/18 11:56 02/28/18 12:20 Sodium Chloride IVPB 02/28/18 12:25 200 mls/hr ONCE ONE Administration Sodium Chloride 1,000 mls @ 1,000 mls/hr 02/28/18 11:56 02/28/18 12:20 Normal Saline - IV 02/28/18 12:55 1,000 mls/hr ASDIR STA Administration Morphine Sulfate 4 mg 02/28/18 11:56 02/28/18 12:20 Morphine Injection - IVPUSH 02/28/18 11:57 4 mg ONCE ONE Administration Ondansetron HCl 4 mg 02/28/18 11:56 02/28/18 12:20 Zofran Injection IVPUSH 02/28/18 11:57 4 mg ONCE ONE Administration Medical Decision Making - Medical Decision Making 02/28/18 13:09 Chief complaint: Epigastric pain associate nausea vomiting poor by mouth intake since last night. Patient history of colon to his pancreatitis. Exam. Patient tender to epigastric area and vomited bilious fluid once during exam Plan: Labs, nothing by mouth, IV fluid bag 2, Zofran, morphine urine and abdominal CT. 02/28/18 15:55 Abd CTs is consistent with acute pancreatitis without pseudocyst or abscess formation. Patient will be admitted to the hospitalist group. 02/28/18 16:09 Laboratory Tests 02/28/18 02/28/18 02/28/18 11:56 11:57 12:00 WBC 11.8 H Hgb 16.1 Hct 46.1 Absolute Neuts (auto) 9.7 H Neutrophils % 82.4 Lymphocytes % 10.4 Monocytes % 5.7 Eosinophils % 0.8 Sodium 136 Potassium 4.8 Chloride 101 Carbon Dioxide 27 Anion Gap 8 BUN 19 H Creatinine 1.2 Creat Clearance w eGFR > 60 Random Glucose 150 H Lactic Acid Calcium 9.9 Magnesium 2.3 Total Bilirubin 0.9 AST 34 ALT 29 Alkaline Phosphatase 85 LD Total 169 Total Protein 8.0 Albumin 4.3 Total Amylase 238 H Lipase 2572 H 02/28/18 12:30 WBC Hgb Hct Absolute Neuts (auto) Neutrophils % Lymphocytes % Monocytes % Eosinophils % Sodium Potassium Chloride Carbon Dioxide Anion Gap BUN Creatinine Creat Clearance w eGFR Random Glucose Lactic Acid 1.3 Calcium Magnesium Total Bilirubin AST ALT Alkaline Phosphatase LD Total Total Protein Albumin Total Amylase Lipase Fatou score 1 02/28/18 16:12 *DC/Admit/Observation/Transfer Diagnosis at time of Disposition: Pancreatitis, alcoholic, acute - Discharge Dispostion Decision to Admit order: Yes - Referrals - Patient Instructions - Post Discharge Activity
[2018-02-28] MEDS ORDERED: MORPHINE SULFATE 2 MG/ML VIAL ONE (16:19)
[2018-02-28 16:32] LABS: URINE APPEARANCE CLEAR; URINE BILIRUBIN NEGATIVE (<2.0 mg/dL); URINE COLOR STRAW; URINE GLUCOSE (UA) NEGATIVE (NEGATIVE); URINE KETONE NEGATIVE (NEGATIVE); URINE LEUK ESTERASE NEGATIVE (NEGATIVE); URINE NITRITE NEGATIVE (NEGATIVE); URINE PROTEIN NEGATIVE (NEGATIVE); URINE UROBILINOGEN NEGATIVE mg/dL (0.2-1.0)
[2018-02-28] MEDS ORDERED: ONDANSETRON 4 MG/2 ML VIAL IVPUSH PRN (16:38)
[2018-02-28] MEDS ORDERED: D5-1/2NS+10 MEQ KCL - 10 MEQ/1,000 ML INFUS.BAG IV SCH (16:45)
[2018-02-28 17:03] LABS: COCAINE, UR NEGATIVE ng/ml (CUTOFF=300); METHADONE, UR NEGATIVE ng/ml (CUTOFF=300); PHENCYCLIDINE,URINE NEGATIVE ng/ml (CUTOFF=25); URINE AMPHETAMINES NEGATIVE ng/ml (CUTOFF=500); URINE BARBITURATES NEGATIVE ng/ml (CUTOFF=200)
--- NOTE | 2018-02-28 17:09 | HP ---
Admitting History and Physical - Primary Care Physician PCP: natalia - Admission Chief Complaint: Epigastric Pain with nausea and vomiting History of Present Illness: 58 yrs old man H/O HIV on HAART CD4 count > 500, undetectable VL F/U at [facility] with Dr Katharine Lala, HTN, Dyslipedemia, Depression, ETOH abuse recurrent ETOH induced acute Pancreatitis (4-5 episodes in the past), currently admitted for Detox since 02/26/2018 after binge drinking , patient says he hd last drink on Sunday before Hospitalization, patient has been having epigastric discomfort since yesterday this morning symptoms aggravated after eating breakfast developed severe 10/10 epigastric pain with nausea and vomiting , vomitted 5-6 times intially ingested food subsequently clear liquid with bile no hemetmesis or melena, came to Ed for evaluation in the Ed w/u shows elevated Lipase Ct abd shows acute pancreatitis admitted for further management, no c/o fever, chills, hemetmesis melena, chest pain. History Source: Patient - Past Medical History Gastrointestinal: Yes: Pancreatitis Hepatobiliary: Yes: Cholecystitis Infectious Disease: Yes: HIV Psych: Yes: Depression - Past Surgical History Past Surgical History: Yes: Cholecystectomy - Smoking History Smoking history: Never smoked Have you smoked in the past 12 months: No Aproximately how many cigarettes per day: 12 - Alcohol/Substance Use Hx Alcohol Use: No Home Medications - Allergies Allergies/Adverse Reactions: Allergies Allergy/AdvReac Type Severity Reaction Status Date / Time No Known Allergies Allergy Verified 02/28/18 10:31 - Home Medications Home Medications: Ambulatory Orders Fenofibrate 134 mg PO DAILY 07/20/17 Lisinopril [Prinivil] 5 mg PO DAILY 07/20/17 Elviteg/Cob/Emtri/Tenof Alafen [Genvoya Tablet] 1 each PO DAILY 02/26/18 Family Disease History - Family Disease History Family Disease History: CA: Father (Prostate cancer, alive) Review of Systems - Review of Systems Constitutional: reports: Malaise. denies: Fever HENT: denies: Difficult Swallowing, Epistaxis Neck: denies: Decreased ROM, Lumps Cardiovascular: denies: Chest Pain, Edema, Palpitations, Shortness of Breath Respiratory: denies: Cough, Exercise Intolerance Gastrointestinal: reports: Abdominal Pain, Bloating, Nausea, Vomiting. denies: Constipation, Diarrhea, Rectal Bleeding Genitourinary: denies: Burning, Discharge Musculoskeletal: denies: Back Pain, Crepitus Neurological: reports: Change in LOC, Change in Speech, Confusion Hematology/Lymphatic: reports: Easily Bruised, Excessive Bleeding Psychiatric: reports: Depression. denies: Altered Sleep Pattern, Anxiety Pain Intensity: 8 Physical Examination Vital Signs: Vital Signs Temperature 97.7 F 02/28/18 10:20 Pulse Rate 69 02/28/18 10:20 Respiratory Rate 16 02/28/18 10:20 Blood Pressure 151/95 02/28/18 10:20 O2 Sat by Pulse Oximetry (%) 100 02/28/18 10:20 Constitutional: Yes: Well Nourished, No Distress HENT: Yes: Atraumatic, Normocephalic, Other (EOMI no Nystagmus) Neck: Yes: Supple, Trachea Midline. No: Decreased ROM, Lymphadenopathy Cardiovascular: Yes: Regular Rate and Rhythm, Tachycardia, S1, S2. No: JVD, Murmur, Rub Respiratory: Yes: Regular, CTA Bilaterally Gastrointestinal: Yes: Normal Bowel Sounds, Tenderness, Tenderness, Epigastrium Musculoskeletal: No: Back Pain, Joint Stiffness, Joint Swelling Extremities: No: Calf Tenderness Edema: No Peripheral Pulses: Left Doralis Pedis: 2+, Right Dorsalis Pedis: 2+ Neurological: Yes: Alert, Oriented. No: Aphasia, Asterixis ...Motor Strength: WNL, LUE, LLE, RUE Psychiatric: Yes: Alert, Oriented. No: Agitated, Suicidal Ideation Labs: CBC, BMP 02/28/18 12:00 02/28/18 11:56 CBC,CMP WBC 11.8 K/mm3 (4.0-10.0) H 02/28/18 12:00 RBC 5.09 M/mm3 (4.00-5.60) 02/28/18 12:00 Hgb 16.1 GM/dL (11.7-16.9) 02/28/18 12:00 Hct 46.1 % (35.4-49) 02/28/18 12:00 MCV 90.6 fl (80-96) 02/28/18 12:00 MCH 31.6 pg (25.7-33.7) 02/28/18 12:00 MCHC 34.9 g/dl (32.0-35.9) 02/28/18 12:00 RDW 13.4 % (11.9-15.9) 02/28/18 12:00 Plt Count 170 K/MM3 (134-434) 02/28/18 12:00 MPV 9.3 fl (7.5-11.1) D 02/28/18 12:00 Absolute Neuts (auto) 9.7 K/mm3 (1.5-8.0) H 02/28/18 12:00 Neutrophils % 82.4 % (42.8-82.8) 02/28/18 12:00 Lymphocytes % 10.4 % (8-40) 02/28/18 12:00 Monocytes % 5.7 % (3.8-10.2) 02/28/18 12:00 Eosinophils % 0.8 % (0-4.5) 02/28/18 12:00 Basophils % 0.7 % (0-2.0) 02/28/18 12:00 Nucleated RBC % 0 % (0-0) 02/28/18 12:00 Sodium 136 mmol/L (136-145) 02/28/18 11:56 Potassium 4.8 mmol/L (3.5-5.1) 02/28/18 11:56 Chloride 101 mmol/L (98-107) 02/28/18 11:56 Carbon Dioxide 27 mmol/L (21-32) 02/28/18 11:56 Anion Gap 8 MMOL/L (8-16) 02/28/18 11:56 BUN 19 mg/dL (7-18) H 02/28/18 11:56 Creatinine 1.2 mg/dL (0.55-1.3) 02/28/18 11:56 Creat Clearance w eGFR > 60 (>60) 02/28/18 11:56 Random Glucose 150 mg/dL (74-106) H 02/28/18 11:56 Lactic Acid 1.3 mmol/L (0.4-2.0) 02/28/18 12:30 Calcium 9.9 mg/dL (8.5-10.1) 02/28/18 11:56 Magnesium 2.3 mg/dL (1.8-2.4) 02/28/18 11:57 Total Bilirubin 0.9 mg/dL (0.2-1) 02/28/18 11:56 AST 34 U/L (15-37) 02/28/18 11:56 ALT 29 U/L (13-61) 02/28/18 11:56 Alkaline Phosphatase 85 U/L (45-117) 02/28/18 11:56 LD Total 169 U/L (87-246) 02/28/18 11:57 Total Protein 8.0 g/dl (6.4-8.2) 02/28/18 11:56 Albumin 4.3 g/dl (3.4-5.0) 02/28/18 11:56 Total Amylase 238 U/L (25-115) H 02/28/18 11:57 Lipase 2572 U/L (73-393) H 02/28/18 11:57 Imaging - Results Cat Scan: Report Reviewed (ABD: acute pancraetitis no Pseudcyst or Necrosis) Problem List - Problems (1) Pancreatitis, alcoholic, acute Assessment/Plan: admitted with ETOH induced acute pancreatitis , Ct scan no Pseudocyst recived IV Hydration in the ED c/o nausea and vomiting NPO except meds F/U CRP, Serial Lipase, BMP, CBC, Lipid panel GI Consult IV NS 125 CC/HR, pain control, Zofran and Famotidine Serial abd exam. Code(s): K85.20 - ALCOHOL INDUCED ACUTE PANCREATITIS WITHOUT NECROSIS OR INFCT (2) Alcohol dependence with uncomplicated withdrawal Assessment/Plan: patient c/o tremors h/o ETOH abuse last drink on sunday observe for DTs, thiamine, Folic acid B complex and Librium protocol. Code(s): F10.230 - ALCOHOL DEPENDENCE WITH WITHDRAWAL, UNCOMPLICATED (3) HIV (human immunodeficiency virus infection) Assessment/Plan: F/U at [facility] never hlast CD4 > 500 undetectable VL will cont current meds, no recent change in medications. Code(s): B20 - HUMAN IMMUNODEFICIENCY VIRUS [HIV] DISEASE (4) HLD (hyperlipidemia) Assessment/Plan: H/O Dyslipedemia will F/U Lipid panel cont home meds Code(s): E78.5 - HYPERLIPIDEMIA, UNSPECIFIED Qualifiers: Hyperlipidemia type: unspecified Qualified Code(s): E78.5 - Hyperlipidemia , unspecified (5) HTN (hypertension) Assessment/Plan: Well controlled cont all home meds. Code(s): I10 - ESSENTIAL (PRIMARY) HYPERTENSION Qualifiers: Hypertension type: essential hypertension Qualified Code(s): I10 - Essential (primary) hypertension
[2018-02-28 17:34] LABS: OPIATES, URI POSITIVE ng/ml (CUTOFF=300); URINE BENZODIAZEPINES POSITIVE ng/ml (CUTOFF=200)
[2018-02-28] MEDS ORDERED: FAMOTIDINE 20 MG/50 ML IVPB 20 MG/50 ML MG IVPB ONE (21:06)
[2018-02-28] MEDS: morphine SULFATE 4 MG/ML VIAL IVPUSH PRN (21:15)
[2018-02-28] MEDS: FAMOTIDINE 20 MG/50 ML IVPB 20 MG/50 ML MG IVPB SCH (21:19)
[2018-02-28] MEDS ORDERED: SODIUM CHLORIDE 1,000 ML IV SCH (22:15)
[2018-02-28] MEDS ORDERED: LORazepam 2 MG/ML SDV VIAL IVPUSH PRN (23:07)
[2018-02-28] MEDS ORDERED: chlordiazePOXIDE HCL 25 MG CAPSULE PO PRN (23:14)
[2018-02-28] MEDS ORDERED: chlordiazePOXIDE HCL 25 MG CAPSULE ONE (23:43)
[2018-02-28] MEDS: chlordiazePOXIDE HCL 25 MG CAPSULE PO SCH (23:46)
[2018-03-01 01:37] LABS: CHOLESTEROL 151 mg/dL (50-200); HDL CHOLESTEROL 36 mg/dL (40-60); TRIGLYCERIDES 232 mg/dL (0-150)
[2018-03-01] MEDS ORDERED: morphine SULFATE 4 MG/ML VIAL ONE ×3 (03:31→15:31)
[2018-03-01] MEDS: morphine SULFATE 4 MG/ML VIAL IVPUSH PRN ×5 (03:33→20:10)
[2018-03-01] MEDS ORDERED: chlordiazePOXIDE HCL 25 MG CAPSULE ONE ×3 (05:48→17:19)
[2018-03-01] MEDS: chlordiazePOXIDE HCL 25 MG CAPSULE PO SCH ×4 (05:52→22:28)
[2018-03-01] MEDS ORDERED: ONDANSETRON 4 MG/2 ML VIAL ONE (08:23)
[2018-03-01 08:36] LABS: BASO % 0.2 % (0-2.0); EOS % 0.2 % (0-4.5); HEMATOCRIT 41.1 % (35.4-49); HEMOGLOBIN 14.1 GM/dL (11.7-16.9); LYMPH % 8.2 % (8-40); MCH 31.6 pg (25.7-33.7); MCHC 34.2 g/dl (32.0-35.9); MEAN CELL VOLUME 92.4 fl (80-96); MEAN PLT VOLUME 9.8 fl (7.5-11.1); MONO % 6.6 % (3.8-10.2); NEUT % 84.8 % (42.8-82.8); PLATELET COUNT 137 K/MM3 (134-434); RBC 4.45 M/mm3 (4.00-5.60); RDW 13.2 % (11.9-15.9); WHITE BLOOD COUNT 11.2 K/mm3 (4.0-10.0)
[2018-03-01 09:05] LABS: ALBUMIN 3.4 g/dl (3.4-5.0); ALK PHOS 72 U/L (45-117); ANION GAP 7 MMOL/L (8-16); BLOOD UREA NITROGEN 12 mg/dL (7-18); CALCIUM 7.6 mg/dL (8.5-10.1); CHLORIDE 104 mmol/L (98-107); CO2 25 mmol/L (21-32); GLUCOSE,RANDOM 140 mg/dL (74-106); POTASSIUM 3.9 mmol/L (3.5-5.1); SGOT/AST 50 U/L (15-37); SGPT/ALT 29 U/L (13-61); SODIUM 136 mmol/L (136-145)
[2018-03-01] MEDS ORDERED: FOLIC ACID 1 MG TABLET (FP) ONE (09:33)
[2018-03-01] MEDS ORDERED: THIAMINE HCL 100 MG TABLET (FP) ONE (09:33)
[2018-03-01] MEDS ORDERED: LISINOPRIL 5 MG TABLET (FP) ONE (09:33)
[2018-03-01] MEDS: FENOFIBRIC ACID 135 MG CAP PO SCH (10:10)
[2018-03-01] MEDS: LISINOPRIL 5 MG TABLET (FP) PO SCH (10:10)
[2018-03-01] MEDS: FOLIC ACID 1 MG TABLET (FP) PO SCH (10:10)
[2018-03-01] MEDS: THIAMINE HCL 100 MG TABLET (FP) PO SCH (10:10)
[2018-03-01] MEDS: FAMOTIDINE 20 MG/50 ML IVPB 20 MG/50 ML MG IVPB SCH ×2 (10:10→22:15)
--- NOTE | 2018-03-01 13:38 | CON.GI ---
Consult Consult Specialty:: GI Referred by:: Hospitalist Service Reason for Consultation:: Abdominal pain - History of Present Illness Chief Complaint: Abdominal pain History of Present Illness: 58M transferred from detox for evaluation of mid abdominal pain. Mr. Gomez states that it remineded him of when he had pancreatitis after drinking alcohol in the past. He is an alcoholic and has been drinking on and off intermittently for multiple years. He started drinking heavily again and last drink was this past sunday. CT scan in the ER was suggestive of acute pancreatitis. He continues to have pain and required morphine today. He believes that he had a normal colonoscopy sevral years ago. There is no family history of colorectal cancer or other GI malignancy. There is no family history of pancreatitis. He is on genvoya for HIV therapy. He denies any recent change in dose or other changes in his medication regimen. - History Source History Provided By: Patient, Medical Record Limitations to Obtaining History: No Limitations - Past Medical History Gastrointestinal: Yes: Pancreatitis Hepatobiliary: Yes: Cholecystitis Infectious Disease: Yes: HIV Psych: Yes: Depression - Past Surgical History Past Surgical History: Yes: Cholecystectomy (Laparoscopic: 2009) - Alcohol/Substance Use Hx Alcohol Use: Yes History of Substance Use: reports: None - Smoking History Smoking history: Current every day smoker Have you smoked in the past 12 months: Yes - Social History Usual Living Arrangement: Alone ADL: Independent Occupation: Unemployed History of Recent Travel: No Home Medications - Allergies Allergies/Adverse Reactions: Allergies Allergy/AdvReac Type Severity Reaction Status Date / Time No Known Allergies Allergy Verified 02/28/18 10:31 - Home Medications Home Medications: Ambulatory Orders Fenofibrate 134 mg PO DAILY 07/20/17 Lisinopril [Prinivil] 5 mg PO DAILY 07/20/17 Elviteg/Cob/Emtri/Tenof Alafen [Genvoya Tablet] 1 each PO DAILY 02/26/18 Family Disease History - Family Disease History Family Disease History: CA: Father (Prostate cancer, alive), Other: Mother ( : 50's: multiple medical problems), Brother (4, healthy), Sister (6, healthy), Son (1, healthy) Other Family History: Mo family history of colorectal cancer or other GI malignancy Review of Systems - Review of Systems Cardiovascular: denies: Chest Pain Respiratory: denies: Cough, SOB Gastrointestinal: reports: Abdominal Pain, Bloating, Indigestion, Nausea. denies: Constipation, Diarrhea, Dysphagia, Melena, Rectal Bleeding, Vomiting, Vomiting Blood Physical Exam-GI Vital Signs: Vital Signs Temperature 99.5 F 03/01/18 06:39 Pulse Rate 79 03/01/18 06:39 Respiratory Rate 18 03/01/18 03:20 Blood Pressure 140/88 03/01/18 06:39 O2 Sat by Pulse Oximetry (%) 96 03/01/18 06:39 Constitutional: Yes: Calm Eyes: No: Sclera Icterus Cardiovascular: Yes: Regular Rate and Rhythm Respiratory: Yes: CTA Bilaterally Gastrointestinal Inspection: No: Distention ...Auscultate: Yes: Normoactive Bowel Sounds ...Palpate: Yes: Guarding (+ voluntary guarding), Tenderness (marked TTP mid abdomen) ...Percussion: No: Tympanitic Edema: No (No LE edema) Neurological: Yes: Alert, Oriented Labs: CBC, BMP 03/01/18 05:18 03/01/18 00:42 Hepatic Panel Total Bilirubin 1.0 mg/dL (0.2-1) 03/01/18 00:42 AST 50 U/L (15-37) H 03/01/18 00:42 ALT 29 U/L (13-61) 03/01/18 00:42 Alkaline Phosphatase 72 U/L (45-117) 03/01/18 00:42 Albumin 3.4 g/dl (3.4-5.0) 03/01/18 00:42 Laboratory Tests 02/28/18 03/01/18 03/01/18 11:57 00:42 05:30 C-Reactive Protein Triglycerides 232 H Total Amylase 238 H Lipase 2572 H 3925 H 03/01/18 05:30 C-Reactive Protein 6.9 H Triglycerides Total Amylase Lipase Imaging - Results Cat Scan: Report Reviewed, Image Reviewed Problem List - Problems (1) Pancreatitis, alcoholic, acute Assessment/Plan: By history, suspect that it is. Mr. Gomez's alcohol use precipitating this episode of pancreatitis. Liver chemistries are nor suggestive of a biliary etiology, he has been doing well on his HIV regimen and while triglycerides elevated, not high enough to be seen as causative. Advised: NPO Complete alcohol cessation Smoking cessation as this can be associated with pancreatitis more aggressive IV hydration: Patient still complaining of significant abdominal pain with marked TTP in the mid abdomen noted on my exam: changed fluids to Lactated Ringers at 250cc/hr. If improving, can decrease to 200cc/hr in AM with further adjustment per GI Monitor daily labs: AM labs odered for tomorrow including CRP Dr. Ferrer will be covering from 5pm tonight through the weekend Code(s): K85.20 - ALCOHOL INDUCED ACUTE PANCREATITIS WITHOUT NECROSIS OR INFCT
[2018-03-01] MEDS ORDERED: SODIUM CHLORIDE 0.9% 500 ML INFUS.BAG IV ONE (13:40)
[2018-03-01] MEDS: LACTATED RINGERS SOLUTION 1,000 ML/1,000 ML INFUS.BAG IV SCH ×2 (14:00→22:16)
--- NOTE | 2018-03-01 15:47 | PN ---
Physical Exam: SUBJECTIVE: Patient seen and examined, He still states that he has severe abdominal pain and can not tolerate Po at all. He has had no more vomiting in the hospital. He has been evaluated by GI and their recs appreciated. He states that he has had no BM but has urinate twice since this morning, denies any SOB, states that abdominal pain improves with morphine but starts to worsen after 1 hours. He has no withdrawal complaints at this time. OBJECTIVE: Vital Signs Period Temp Pulse Resp BP Sys/Barker Pulse Ox Last 24 Hr 99.2 F-99.5 F 70-102 18-20 125-146/80-91 96-98 GENERAL: The patient is awake, alert, and fully oriented, in no acute distress. HEAD: Normal with no signs of trauma. EYES: PERRL, extraocular movements intact, sclera anicteric, conjunctiva clear. No ptosis. ENT: Ears normal, NECK: Trachea midline, full range of motion, supple. LUNGS: Breath sounds equal, clear to auscultation bilaterally, no wheezes, no crackles, no accessory muscle use. HEART: Regular rate and rhythm, S1, S2 without murmur, rub or gallop. ABDOMEN: BS hypoactive, is soft, ad not guarded but has generalized tenderness. no C sign EXTREMITIES: 2+ pulses, warm, well-perfused, no edema. NEUROLOGICAL: Cranial nerves II through XII grossly intact. Normal speech, gait not observed. PSYCH: Normal mood, normal affect. SKIN: Warm, dry, normal turgor, no rashes or lesions noted Laboratory Results - last 24 hr 02/28/18 02/28/18 02/28/18 11:56 11:57 16:00 WBC RBC Hgb Hct MCV MCH MCHC RDW Plt Count MPV Absolute Neuts (auto) Neutrophils % Lymphocytes % Monocytes % Eosinophils % Basophils % Nucleated RBC % Sodium 136 Potassium 4.8 Chloride 101 Carbon Dioxide 27 Anion Gap 8 BUN 19 H Creatinine 1.2 Creat Clearance w eGFR > 60 Random Glucose 150 H Calcium 9.9 Magnesium Total Bilirubin 0.9 AST 34 ALT 29 Alkaline Phosphatase 85 C-Reactive Protein 0.9 H Total Protein 8.0 Albumin 4.3 Triglycerides Cholesterol Total LDL Cholesterol HDL Cholesterol Lipase Urine Color Straw Urine Appearance Clear Urine pH 6.0 Ur Specific [place] 1.055 H Urine Protein Negative Urine Glucose (UA) Negative Urine Ketones Negative Urine Blood Negative Urine Nitrite Negative Urine Bilirubin Negative Urine Urobilinogen Negative Ur Leukocyte Esterase Negative Opiates Screen Positive A* Methadone Screen Negative Barbiturate Screen Negative Phencyclidine Screen Negative Ur Amphetamines Screen Negative MDMA (Ecstasy) Screen Negative Benzodiazepines Screen Positive A* Cocaine Screen Negative U Marijuana (THC) Screen Negative 03/01/18 03/01/18 03/01/18 00:42 05:18 05:20 WBC 11.2 H RBC 4.45 Hgb 14.1 Hct 41.1 MCV 92.4 MCH 31.6 MCHC 34.2 RDW 13.2 Plt Count 137 MPV 9.8 Absolute Neuts (auto) 9.5 H Neutrophils % 84.8 H Lymphocytes % 8.2 D Monocytes % 6.6 Eosinophils % 0.2 Basophils % 0.2 Nucleated RBC % 0 Sodium 136 Potassium 3.9 Chloride 104 Carbon Dioxide 25 Anion Gap 7 L BUN 12 Creatinine 1.0 Creat Clearance w eGFR > 60 Random Glucose 140 H Calcium 7.6 L Magnesium 1.9 Total Bilirubin 1.0 AST 50 H ALT 29 Alkaline Phosphatase 72 C-Reactive Protein Total Protein 6.0 L Albumin 3.4 Triglycerides 232 H Cholesterol 151 Total LDL Cholesterol 100 HDL Cholesterol 36 L Lipase Urine Color Urine Appearance Urine pH Ur Specific [place] Urine Protein Urine Glucose (UA) Urine Ketones Urine Blood Urine Nitrite Urine Bilirubin Urine Urobilinogen Ur Leukocyte Esterase Opiates Screen Methadone Screen Barbiturate Screen Phencyclidine Screen Ur Amphetamines Screen MDMA (Ecstasy) Screen Benzodiazepines Screen Cocaine Screen U Marijuana (THC) Screen 03/01/18 03/01/18 05:30 05:30 WBC RBC Hgb Hct MCV MCH MCHC RDW Plt Count MPV Absolute Neuts (auto) Neutrophils % Lymphocytes % Monocytes % Eosinophils % Basophils % Nucleated RBC % Sodium Potassium Chloride Carbon Dioxide Anion Gap BUN Creatinine Creat Clearance w eGFR Random Glucose Calcium Magnesium Total Bilirubin AST ALT Alkaline Phosphatase C-Reactive Protein 6.9 H Total Protein Albumin Triglycerides Cholesterol Total LDL Cholesterol HDL Cholesterol Lipase 3925 H Urine Color Urine Appearance Urine pH Ur Specific [place] Urine Protein Urine Glucose (UA) Urine Ketones Urine Blood Urine Nitrite Urine Bilirubin Urine Urobilinogen Ur Leukocyte Esterase Opiates Screen Methadone Screen Barbiturate Screen Phencyclidine Screen Ur Amphetamines Screen MDMA (Ecstasy) Screen Benzodiazepines Screen Cocaine Screen U Marijuana (THC) Screen Active Medications Generic Name Dose Route Start Last Admin Trade Name Freq PRN Reason Stop Dose Admin Chlordiazepoxide HCl 50 mg 02/28/18 23:45 03/01/18 11:00 Librium - PO 03/01/18 17:01 50 mg [id number] MANDIE Administration Chlordiazepoxide HCl 25 mg 03/01/18 23:00 Librium - PO 03/02/18 17:01 [id number] MANDIE Chlordiazepoxide HCl 15 mg 03/02/18 23:00 Librium - PO 03/03/18 17:01 [id number] MANDIE Chlordiazepoxide HCl 25 mg 02/28/18 23:14 Librium - PO 03/03/18 23:13 Q4H PRN WITHDRAWAL(CONT SUBST) Chlordiazepoxide HCl 10 mg 03/03/18 23:00 Librium - PO 03/04/18 17:01 [id number] MANDIE Fenofibric Acid 135 mg 03/01/18 10:00 03/01/18 10:10 Trilipix - PO 135 mg DAILY MANDIE Administration Folic Acid 1 mg 03/01/18 10:00 03/01/18 10:10 Folic Acid - PO 1 mg DAILY MANDIE Administration Famotidine/Sodium Chloride 20 mg in 50 mls @ 100 mls/hr 02/28/18 22:00 10:10 Pepcid 20 Mg Premixed Ivpb - IVPB 100 mls/hr BID MANDIE Administration Lactated Ringer's 1,000 ml in 1,000 mls @ 250 mls/hr 03/01/18 13:30 03/01/18 14:00 Lactated Ringers Solution IV 250 mls/hr ASDIR MANDIE Administration Dextrose/Sodium Chloride 1,000 mls @ 125 mls/hr 03/01/18 13:45 D5-1/2ns - IV ASDIR MANDIE Lisinopril 5 mg 03/01/18 10:00 03/01/18 10:10 Prinivil PO 5 mg DAILY MANDIE Administration Lorazepam 1 mg 02/28/18 23:07 Ativan Injection - IVPUSH Q6H PRN AGITATION Morphine Sulfate 4 mg 02/28/18 16:38 03/01/18 11:20 Morphine Sulfate IVPUSH 4 mg Q4H PRN Administration PAIN LEVEL 6-10 Non-Formulary Medication 1 each 03/01/18 10:00 Elviteg/Cob/Emtri/Tenof Alafen [Genvoya Tablet] PO DAILY MANDIE Ondansetron HCl 4 mg 02/28/18 16:38 Zofran Injection IVPUSH Q6H PRN NAUSEA Thiamine HCl 100 mg 03/01/18 10:00 03/01/18 10:10 Vitamin B1 - PO 100 mg DAILY MANDIE Administration ASSESSMENT/PLAN: The patient is a 58 Y/O M W ETOH abuse recurrent ETOH induced acute Pancreatitis (4-5 episodes in the past), currently admitted for Detox since 02/26 after binge drinking p/w generalized abdominal pain similar to his previous pancreatic pains, found to have acute pancreatitis on imaging with elevated lipase, Other medical diseases, are HIV on HAART CD4 count > 500, undetectable VL F/U at [facility] with Dr Katharine Lala, HTN, Dyslipedemia, Depression. acute pancreatitis: still pain is not controlled, he is still npo, GI evaluated the patient and their recs appreciated. C/W frequent abdominal exams Etoh withdrawal: He is on librium standing dose and has no signs of withdrawal at this time Etoh abuse: will C/W thiamine, folic acid and MVI, HTN:will C/W home medication, has no ALEXA at this time HIV: will dC/W home medication DVT ppx: Heparin SQ Diet: NPO he is currently on ringer lactate high rate till tomorrow morning. Visit type - Emergency Visit Emergency Visit: No - New Patient This patient is new to me today: No - Critical Care Critical Care patient: No - Discharge Referral Referred to [facility] Med P.C.: No
[2018-03-01] MEDS: DEXTROSE 5%-0.45% SALINE 1,000 ML IV SCH (20:25)
[2018-03-01] MEDS: HEPARIN NA (PORCINE) 5,000 UNITS/ML 1ML VIAL SQ SCH (22:15)
[2018-03-02] MEDS: morphine SULFATE 4 MG/ML VIAL IVPUSH PRN ×5 (01:55→22:07)
[2018-03-02] MEDS: LACTATED RINGERS SOLUTION 1,000 ML/1,000 ML INFUS.BAG IV SCH ×3 (02:35→16:21)
[2018-03-02] MEDS: chlordiazePOXIDE HCL 25 MG CAPSULE PO SCH ×4 (05:44→17:37)
--- NOTE | 2018-03-02 07:04 | PN ---
Progress Note, Physician History of Present Illness: PATIENT WANTS TO EAT -DENIES ABDOMINAL PAIN / N/V / FEVER / CHILLS / COUGH (HE DID RECEIVE PAIN MEDS EARLIER IN THE MORNING - Current Medication List Current Medications: Active Medications Chlordiazepoxide HCl (Librium -) 25 mg PO [id number] [facility] Stop: 03/02/18 17:01 Last Admin: 03/02/18 05:45 Dose: Not Given Chlordiazepoxide HCl (Librium -) 15 mg PO [id number] [facility] Stop: 03/03/18 17:01 Chlordiazepoxide HCl (Librium -) 25 mg PO Q4H PRN PRN Reason: WITHDRAWAL(CONT SUBST) Stop: 03/03/18 23:13 Chlordiazepoxide HCl (Librium -) 10 mg PO [id number] [facility] Stop: 03/04/18 17:01 Fenofibric Acid (Trilipix -) 135 mg PO DAILY [facility] Last Admin: 03/01/18 10:10 Dose: 135 mg Folic Acid (Folic Acid -) 1 mg PO DAILY [facility] Last Admin: 03/01/18 10:10 Dose: 1 mg Heparin Sodium (Porcine) (Heparin -) 5,000 unit SQ BID [facility] Last Admin: 03/01/18 22:15 Dose: 5,000 unit Famotidine/Sodium Chloride (Pepcid 20 Mg Premixed Ivpb -) 20 mg in 50 mls @ 100 mls/hr IVPB BID [facility] Last Admin: 03/01/18 22:15 Dose: 100 mls/hr Lactated Ringer's (Lactated Ringers Solution) 1,000 ml in 1,000 mls @ 250 mls/ hr IV ASDIR [facility] Last Admin: 03/02/18 06:29 Dose: 250 mls/hr Dextrose/Sodium Chloride (D5-1/2ns -) 1,000 mls @ 125 mls/hr IV ASDIR [facility] Last Admin: 03/01/18 20:25 Dose: Not Given Lisinopril (Prinivil) 5 mg PO DAILY [facility] Last Admin: 03/01/18 10:10 Dose: 5 mg Lorazepam (Ativan Injection -) 1 mg IVPUSH Q6H PRN PRN Reason: AGITATION Morphine Sulfate (Morphine Sulfate) 4 mg IVPUSH Q4H PRN PRN Reason: PAIN LEVEL 6-10 Last Admin: 03/02/18 06:15 Dose: 4 mg Non-Formulary Medication (Elviteg/Cob/Emtri/Tenof Alafen [Genvoya Tablet]) 1 each PO DAILY [facility] Ondansetron HCl (Zofran Injection) 4 mg IVPUSH Q6H PRN PRN Reason: NAUSEA Thiamine HCl (Vitamin B1 -) 100 mg PO DAILY [facility] Last Admin: 03/01/18 10:10 Dose: 100 mg - Objective Vital Signs: Vital Signs Temperature 99.6 F 03/02/18 07:00 Pulse Rate 95 H 03/02/18 07:00 Respiratory Rate 03/02/18 07:00 Blood Pressure 143/82 03/02/18 07:00 O2 Sat by Pulse Oximetry (%) 97 03/01/18 21:00 Constitutional: Yes: Well Nourished, No Distress, Calm Eyes: Yes: WNL HENT: Yes: WNL Neck: Yes: WNL Cardiovascular: Yes: WNL, Regular Rate and Rhythm Respiratory: Yes: WNL, Regular, CTA Bilaterally Gastrointestinal: Yes: WNL, Normal Bowel Sounds, Soft Musculoskeletal: Yes: WNL Extremities: Yes: WNL Edema: No Problem List - Problems (1) Pancreatitis, alcoholic, acute Assessment/Plan: C/W IVF'S AT 200 CC/HR AM LABS ORDERED WELL CULTURES CONSIDERING HIS LEUKOCYSTOSIS -- IF WORSENS HE WILL NEED REPEAT IMAGING OF HIS ABDOMEN ADVANCED TO CLEAR LIQUID DIET ID EVALUATION WILL F/U Code(s): K85.20 - ALCOHOL INDUCED ACUTE PANCREATITIS WITHOUT NECROSIS OR INFCT (2) Alcohol dependence with uncomplicated withdrawal Code(s): F10.230 - ALCOHOL DEPENDENCE WITH WITHDRAWAL, UNCOMPLICATED (3) HIV (human immunodeficiency virus infection) Code(s): B20 - HUMAN IMMUNODEFICIENCY VIRUS [HIV] DISEASE (4) Nicotine dependence Code(s): F17.200 - NICOTINE DEPENDENCE, UNSPECIFIED, UNCOMPLICATED Qualifiers: Nicotine product type: cigarettes
[2018-03-02 07:24] LABS: BASO % 0.4 % (0-2.0); EOS % 0.3 % (0-4.5); HEMATOCRIT 39.2 % (35.4-49); HEMOGLOBIN 13.6 GM/dL (11.7-16.9); LYMPH % 7.5 % (8-40); MCHC 34.6 g/dl (32.0-35.9); MEAN CELL VOLUME 92.4 fl (80-96); MEAN PLT VOLUME 9.5 fl (7.5-11.1); MONO % 8.1 % (3.8-10.2); NEUT % 83.7 % (42.8-82.8); PLATELET COUNT 127 K/MM3 (134-434); RBC 4.24 M/mm3 (4.00-5.60); RDW 13.6 % (11.9-15.9); WHITE BLOOD COUNT 15.2 K/mm3 (4.0-10.0)
[2018-03-02 07:42] LABS: ALBUMIN 3.2 g/dl (3.4-5.0); ALK PHOS 85 U/L (45-117); ANION GAP 10 MMOL/L (8-16); BILIRUBIN,DIRECT 0.6 mg/dL (0.0-0.2); BILIRUBIN,TOTAL 1.6 mg/dL (0.2-1); BLOOD UREA NITROGEN 7 mg/dL (7-18); CALCIUM 8.4 mg/dL (8.5-10.1); CHLORIDE 100 mmol/L (98-107); CO2 25 mmol/L (21-32); GLUCOSE,RANDOM 109 mg/dL (74-106); SGOT/AST 35 U/L (15-37); SGPT/ALT 29 U/L (13-61); SODIUM 135 mmol/L (136-145); TOT PROT 6.4 g/dl (6.4-8.2)
[2018-03-02] MEDS: FAMOTIDINE 20 MG/50 ML IVPB 20 MG/50 ML MG IVPB SCH ×2 (09:40→22:07)
[2018-03-02] MEDS: HEPARIN NA (PORCINE) 5,000 UNITS/ML 1ML VIAL SQ SCH ×2 (09:41→22:07)
[2018-03-02] MEDS: THIAMINE HCL 100 MG TABLET (FP) PO SCH (09:41)
[2018-03-02] MEDS: LISINOPRIL 5 MG TABLET (FP) PO SCH (09:41)
[2018-03-02] MEDS: FOLIC ACID 1 MG TABLET (FP) PO SCH (09:41)
[2018-03-02] MEDS: FENOFIBRIC ACID 135 MG CAP PO SCH (09:50)
--- NOTE | 2018-03-02 14:47 | HOSP ---
Subjective - Review of Symptoms Events since last encounter: He is much better less pains no fever he is [place] General: No: Chills, Night Sweats, Fatigue, Malaise, Appetite, Other HEENT: No: Head Aches, Visual Changes, Eye Pain, Ear Pain, Dysphasia, Sinus Congestion, Post Nasal Drip, Sore Throat, Other Pulmonary: No: Dyspnea, Cough, Pleuritic Chest Pain, Other Gastrointestinal: Yes: Abdominal Pain (mild). No: Nausea, NOSYM, Vomiting, Diarrhea, Constipation, Melena, Hematochezia, Other Genitourinary: No: Dysuria, NOSYM, Frequency, Incontinence, Hematuria, Retention , Other Musculoskeletal: No: No Symptoms, Back Pain, Crepitus, Decreased ROM, Extremity Pain, Joint Pain, Joint Swelling, Muscle Pain, Muscle Cramps, Muscle Weakness, Other Neurological: No: Weakness, Numbness, Incoordination, Change in speech, Confusion, Seizures, Other Physical Examination Vital Signs: Vital Signs Temperature 99.6 F 03/02/18 07:00 Pulse Rate 95 H 03/02/18 07:00 Respiratory Rate 18 03/02/18 07:00 Blood Pressure 143/82 03/02/18 07:00 O2 Sat by Pulse Oximetry (%) 97 03/01/18 21:00 Constitutional: Yes: Well Nourished Eyes: Yes: Conjunctiva Clear HENT: Yes: Atraumatic Neck: Yes: Supple Cardiovascular: Yes: Regular Rate and Rhythm Respiratory: Yes: Regular Gastrointestinal: Yes: Normal Bowel Sounds, Soft Edema: No Neurological: Yes: Alert Labs: CBC, BMP 03/02/18 06:30 03/02/18 06:30 Hospitalist Encounter Assessment: acute pancreatitis: He is better his lipase and amylase is coming down d/w gi and will start on lequid diet Etoh withdrawal: He is improving Etoh abuse: thiamine, folic acid and MVI, HTN:stable DVT ppx: Heparin SQ Diet: clear liquid will advance am if necessary repeat labs in am
[2018-03-02] MEDS: SODIUM CHLORIDE 0.45% 1,000 ML IV SCH (17:37)
[2018-03-02] MEDS: DEXTROSE 5%-0.45% SALINE 1,000 ML IV SCH (17:37)
[2018-03-02] MEDS: chlordiazePOXIDE 5 MG CAPSULE PO SCH (22:28)
[2018-03-03] MEDS: SODIUM CHLORIDE 0.45% 1,000 ML IV SCH (01:31)
[2018-03-03] MEDS: morphine SULFATE 4 MG/ML VIAL IVPUSH PRN (03:31)
[2018-03-03] MEDS: chlordiazePOXIDE 5 MG CAPSULE PO SCH ×4 (05:45→22:09)
[2018-03-03 07:12] LABS: BASO % 1.4 % (0-2.0); EOS % 1.9 % (0-4.5); HEMATOCRIT 35.4 % (35.4-49); HEMOGLOBIN 12.2 GM/dL (11.7-16.9); LYMPH % 11.2 % (8-40); MCH 32.1 pg (25.7-33.7); MCHC 34.4 g/dl (32.0-35.9); MEAN CELL VOLUME 93.3 fl (80-96); MEAN PLT VOLUME 9.7 fl (7.5-11.1); MONO % 9.7 % (3.8-10.2); NEUT % 75.8 % (42.8-82.8); PLATELET COUNT 125 K/MM3 (134-434); RBC 3.79 M/mm3 (4.00-5.60); RDW 13.2 % (11.9-15.9); WHITE BLOOD COUNT 12.3 K/mm3 (4.0-10.0)
--- NOTE | 2018-03-03 07:26 | PN ---
Progress Note, Physician History of Present Illness: LOW GRADE TEMPERATURE 100.3 NOTED - PT STATES HE IS FEELING BETTER / TOLERATED DIET F/U CULTURES ; IF SPIKES TEMPERATURE -- REPEAT CULTURES / CXR / UA; MAY NEED REPEAT IMAGING ALSO. CHANGED FROM REGULAR TO 20 GM FAT CONTROLLED DIET TREND LFT / H/H / CHEMISTRY ETOH WITHDRAWAL PROTOCOL - Current Medication List Current Medications: Active Medications Chlordiazepoxide HCl (Librium -) 15 mg PO [id number] [facility] Stop: 03/03/18 17:01 Last Admin: 03/03/18 05:45 Dose: 15 mg Chlordiazepoxide HCl (Librium -) 25 mg PO Q4H PRN PRN Reason: WITHDRAWAL(CONT SUBST) Stop: 03/03/18 23:13 Chlordiazepoxide HCl (Librium -) 10 mg PO [id number] [facility] Stop: 03/04/18 17:01 Fenofibric Acid (Trilipix -) 135 mg PO DAILY [facility] Last Admin: 03/02/18 09:50 Dose: 135 mg Folic Acid (Folic Acid -) 1 mg PO DAILY [facility] Last Admin: 03/02/18 09:41 Dose: 1 mg Heparin Sodium (Porcine) (Heparin -) 5,000 unit SQ BID [facility] Last Admin: 03/02/18 22:07 Dose: 5,000 unit Famotidine/Sodium Chloride (Pepcid 20 Mg Premixed Ivpb -) 20 mg in 50 mls @ 100 mls/hr IVPB BID [facility] Last Admin: 03/02/18 22:07 Dose: 100 mls/hr Dextrose/Sodium Chloride (D5-1/2ns -) 1,000 mls @ 125 mls/hr IV ASDIR [facility] Last Admin: 03/02/18 17:37 Dose: Not Given Sodium Chloride (1/2 Normal Saline) 1,000 mls @ 150 mls/hr IV ASDIR [facility] Last Admin: 03/03/18 01:31 Dose: 150 mls/hr Lisinopril (Prinivil) 5 mg PO DAILY [facility] Last Admin: 03/02/18 09:41 Dose: 5 mg Lorazepam (Ativan Injection -) 1 mg IVPUSH Q6H PRN PRN Reason: AGITATION Morphine Sulfate (Morphine Sulfate) 4 mg IVPUSH Q4H PRN PRN Reason: PAIN LEVEL 6-10 Last Admin: 03/03/18 03:31 Dose: 4 mg Non-Formulary Medication (Elviteg/Cob/Emtri/Tenof Alafen [Genvoya Tablet]) 1 each PO DAILY [facility] Ondansetron HCl (Zofran Injection) 4 mg IVPUSH Q6H PRN PRN Reason: NAUSEA Thiamine HCl (Vitamin B1 -) 100 mg PO DAILY [facility] Last Admin: 03/02/18 09:41 Dose: 100 mg - Objective Vital Signs: Vital Signs Temperature 98.2 F 03/03/18 05:46 Pulse Rate 80 03/03/18 05:46 Respiratory Rate 18 03/03/18 05:46 Blood Pressure 121/83 03/03/18 05:46 O2 Sat by Pulse Oximetry (%) 97 03/01/18 21:00 Labs: CBC, BMP 03/03/18 06:00 03/02/18 06:30 Problem List - Problems (1) Pancreatitis, alcoholic, acute Code(s): K85.20 - ALCOHOL INDUCED ACUTE PANCREATITIS WITHOUT NECROSIS OR INFCT (2) Alcohol dependence with uncomplicated withdrawal Code(s): F10.230 - ALCOHOL DEPENDENCE WITH WITHDRAWAL, UNCOMPLICATED (3) HIV (human immunodeficiency virus infection) Code(s): B20 - HUMAN IMMUNODEFICIENCY VIRUS [HIV] DISEASE (4) Nicotine dependence Code(s): F17.200 - NICOTINE DEPENDENCE, UNSPECIFIED, UNCOMPLICATED Qualifiers: Nicotine product type: cigarettes
[2018-03-03 07:46] LABS: ALBUMIN 3.1 g/dl (3.4-5.0); BILIRUBIN,DIRECT 0.4 mg/dL (0.0-0.2); BILIRUBIN,TOTAL 1.2 mg/dL (0.2-1); TOT PROT 6.4 g/dl (6.4-8.2)
--- NOTE | 2018-03-03 09:20 | PN ---
Physical Exam: SUBJECTIVE: Patient seen and examined He is much better ate well and no vomiting no fever he is ambulatory OBJECTIVE: Vital Signs Period Temp Pulse Resp BP Sys/Barker Pulse Ox Last 24 Hr 98.0 F-99 F 78-98 18-18 115-143/75-88 GENERAL: The patient is awake, alert, and fully oriented, in no acute distress. HEAD: Normal with no signs of trauma. EYES: PERRL, extraocular movements intact, sclera anicteric, conjunctiva clear. No ptosis. ENT: Ears normal, nares patent, oropharynx clear without exudates, moist mucous membranes. NECK: Trachea midline, full range of motion, supple. LUNGS: Breath sounds equal, clear to auscultation bilaterally, no wheezes, no crackles, no accessory muscle use. HEART: Regular rate and rhythm, S1, S2 without murmur, rub or gallop. ABDOMEN: Soft, nontender, nondistended, normoactive bowel sounds, no guarding, no rebound, no hepatosplenomegaly, no masses. EXTREMITIES: 2+ pulses, warm, well-perfused, no edema. NEUROLOGICAL: Cranial nerves II through XII grossly intact. Normal speech, gait not observed. PSYCH: Normal mood, normal affect. SKIN: Warm, dry, normal turgor, no rashes or lesions noted Laboratory Results - last 24 hr 03/02/18 03/03/18 03/03/18 06:30 06:00 06:00 WBC 12.3 H RBC 3.79 L Hgb 12.2 Hct 35.4 MCV 93.3 MCH 32.1 MCHC 34.4 RDW 13.2 Plt Count 125 L MPV 9.7 Absolute Neuts (auto) 9.3 H Neutrophils % 75.8 Lymphocytes % 11.2 D Monocytes % 9.7 Eosinophils % 1.9 D Basophils % 1.4 D Nucleated RBC % 0 Total Bilirubin 1.2 H Direct Bilirubin 0.4 H AST 20 ALT 21 Alkaline Phosphatase 79 C-Reactive Protein 23.1 H Total Protein 6.4 Albumin 3.1 L Total Amylase 123 H Lipase 616 H 03/03/18 03/03/18 06:00 06:00 WBC RBC Hgb Hct MCV MCH MCHC RDW Plt Count MPV Absolute Neuts (auto) Neutrophils % Lymphocytes % Monocytes % Eosinophils % Basophils % Nucleated RBC % Total Bilirubin Direct Bilirubin AST ALT Alkaline Phosphatase C-Reactive Protein Total Protein Albumin Total Amylase 60 Lipase 357 Active Medications Generic Name Dose Route Start Last Admin Trade Name Freq PRN Reason Stop Dose Admin Chlordiazepoxide HCl 15 mg 03/02/18 23:00 03/03/18 05:45 Librium - PO 03/03/18 17:01 15 mg [id number] MANDIE Administration Chlordiazepoxide HCl 25 mg 02/28/18 23:14 Librium - PO 03/03/18 23:13 Q4H PRN WITHDRAWAL(CONT SUBST) Chlordiazepoxide HCl 10 mg 03/03/18 23:00 Librium - PO 03/04/18 17:01 [id number] MANDIE Fenofibric Acid 135 mg 03/01/18 10:00 03/02/18 09:50 Trilipix - PO 135 mg DAILY MANDIE Administration Folic Acid 1 mg 03/01/18 10:00 03/02/18 09:41 Folic Acid - PO 1 mg DAILY MANDIE Administration Heparin Sodium (Porcine) 5,000 unit 03/01/18 22:00 03/02/18 22:07 Heparin - SQ 5,000 unit BID MANDIE Administration Famotidine/Sodium Chloride 20 mg in 50 mls @ 100 mls/hr 02/28/18 22:00 22:07 Pepcid 20 Mg Premixed Ivpb - IVPB 100 mls/hr BID MANDIE Administration Lisinopril 5 mg 03/01/18 10:00 03/02/18 09:41 Prinivil PO 5 mg DAILY [facility] Administration Lorazepam 1 mg 02/28/18 23:07 Ativan Injection - IVPUSH Q6H PRN AGITATION Non-Formulary Medication 1 each 03/01/18 10:00 Elviteg/Cob/Emtri/Tenof Alafen [Genvoya Tablet] PO DAILY [facility] Ondansetron HCl 4 mg 02/28/18 16:38 Zofran Injection IVPUSH Q6H PRN NAUSEA Oxycodone/Acetaminophen 1 combo 03/03/18 09:17 Percocet 5/325 - PO Q6HPO PRN PAIN-PACU Pantoprazole Sodium 20 mg 03/03/18 10:00 Protonix - PO DAILY [facility] Thiamine HCl 100 mg 03/01/18 10:00 03/02/18 09:41 Vitamin B1 - PO 100 mg DAILY MANDIE Administration ASSESSMENT/PLAN: acute pancreatitis: He is better his lipase and amylase normal regaular diet dc iv fluids and morphine and change to po oxycodone Etoh withdrawal: He is improving Etoh abuse: thiamine, folic acid and MVI, HTN:stable DVT ppx: Heparin SQ Diet: regular
[2018-03-03] MEDS ORDERED: ACETAMINOPHEN 325 MG TABLET (FP) PO PRN (09:49)
[2018-03-03] MEDS: PANTOPRAZOLE 20 MG TABLET (FP) PO SCH (10:23)
[2018-03-03] MEDS: THIAMINE HCL 100 MG TABLET (FP) PO SCH (10:23)
[2018-03-03] MEDS: HEPARIN NA (PORCINE) 5,000 UNITS/ML 1ML VIAL SQ SCH ×2 (10:23→21:08)
[2018-03-03] MEDS: FOLIC ACID 1 MG TABLET (FP) PO SCH (10:23)
[2018-03-03] MEDS: LISINOPRIL 5 MG TABLET (FP) PO SCH (10:23)
[2018-03-03] MEDS: FENOFIBRIC ACID 135 MG CAP PO SCH (10:25)
[2018-03-03] MEDS: oxyCODONE HCL 5 MG TABLET PO PRN (21:24)
[2018-03-04] MEDS: chlordiazePOXIDE 5 MG CAPSULE PO SCH ×2 (04:35→11:06)
[2018-03-04] MEDS: oxyCODONE HCL 5 MG TABLET PO PRN (05:20)
[2018-03-04 06:27] VITALS: BP 103/65; PULSE 65; TEMP 98
--- NOTE | 2018-03-04 07:29 | PN ---
GI Progress Note Subjective: Patient complain of non-radiating, burning epigastric pain. Denies nausea, vomiting, diarrhea. Lipase and amylase trending down. - Objective Vital Signs: Vital Signs Temperature 98 F 03/04/18 06:00 Pulse Rate 65 03/04/18 06:00 Respiratory Rate 20 03/04/18 06:00 Blood Pressure 103/65 03/04/18 06:00 O2 Sat by Pulse Oximetry (%) 97 03/01/18 21:00 Constitutional: Well Nourished, No Distress, Calm Eyes: Yes: Conjunctiva Clear Neck: Yes: Supple Cardiovascular: Yes: Regular Rate and Rhythm Respiratory: Yes: Regular, CTA Bilaterally Gastrointestinal Inspection: Yes: WNL ...Auscultate: Yes: Normoactive Bowel Sounds ...Palpate: Yes: Soft, Tenderness (RUQ, epigastric, LUQ) ...Percussion: Yes: Tympanitic Musculoskeletal: Yes: WNL Neurological: Yes: Alert Labs: CBC, BMP 03/03/18 06:00 03/02/18 06:30 Problem List - Problems (1) Pancreatitis, alcoholic, acute Code(s): K85.20 - ALCOHOL INDUCED ACUTE PANCREATITIS WITHOUT NECROSIS OR INFCT (2) GERD (gastroesophageal reflux disease) Code(s): K21.9 - GASTRO-ESOPHAGEAL REFLUX DISEASE WITHOUT ESOPHAGITIS Qualifiers: Esophagitis presence: without esophagitis Qualified Code(s): K21.9 - Gastro -esophageal reflux disease without esophagitis
[2018-03-04] MEDS ORDERED: PT OWN MED DRAWER 7, Y5N ONE (09:30)
[2018-03-04] MEDS: THIAMINE HCL 100 MG TABLET (FP) PO SCH (09:38)
[2018-03-04] MEDS: HEPARIN NA (PORCINE) 5,000 UNITS/ML 1ML VIAL SQ SCH (09:39)
[2018-03-04] MEDS: PANTOPRAZOLE 20 MG TABLET (FP) PO SCH (09:39)
[2018-03-04] MEDS: FOLIC ACID 1 MG TABLET (FP) PO SCH (09:39)
[2018-03-04] MEDS: LISINOPRIL 5 MG TABLET (FP) PO SCH (09:39)
[2018-03-04] MEDS: FENOFIBRIC ACID 135 MG CAP PO SCH (09:39)
--- NOTE | 2018-03-04 12:02 | DS ---
Physical Examination Vital Signs: Vital Signs Temperature 98 F 03/04/18 06:00 Pulse Rate 65 03/04/18 06:00 Respiratory Rate 20 03/04/18 06:00 Blood Pressure 103/65 03/04/18 06:00 O2 Sat by Pulse Oximetry (%) 97 03/01/18 21:00 Findings/Remarks: 24 HR events -pt clinical status has improved. -AMylase and lipase now downtrending. -pt anxious to go home. Constitutional: Yes: Well Nourished, No Distress, Anxious Eyes: Yes: Conjunctiva Clear HENT: Yes: Atraumatic, Normocephalic Neck: Yes: Supple Cardiovascular: Yes: Regular Rate and Rhythm Respiratory: Yes: Regular Gastrointestinal: Yes: Normal Bowel Sounds, Soft ...Rectal Exam: Yes: Deferred Musculoskeletal: Yes: WNL Extremities: Yes: WNL Edema: No Peripheral Pulses WNL: Yes Peripheral Pulses: Left Radial: 2+, Right Radial: 2+ Integumentary: Yes: WNL Neurological: Yes: Alert, Oriented ...Motor Strength: WNL Psychiatric: Yes: Alert, Oriented Labs: CBC, BMP 03/03/18 06:00 03/02/18 06:30 Discharge Summary Reason For Visit: ALCOHOL- INDUCED ACUTE PANCREATITIS Current Active Problems Pancreatitis, alcoholic, acute (Acute) Other Procedures: CT Chest 02/28/2018. IMPRESSION: Findings consistent with acute pancreatitis without pseudocyst or abscess formation. Clinical correlation and follow-up recommended. Please see above discussion. Reported By : Rob Donis MD. 02/28/18 8921 Hospital Course: 58 yrs old man H/O HIV on HAART CD4 count > 500, undetectable VL F/U at [facility] with Dr Katharine Lala, HTN, Dyslipedemia, Depression, ETOH abuse recurrent ETOH induced acute Pancreatitis (4-5 episodes in the past), currently admitted for Detox since 02/26/2018 after binge drinking , patient says he hd last drink on Sunday before Hospitalization, patient has been having epigastric discomfort since yesterday this morning symptoms aggravated after eating breakfast developed severe 10/10 epigastric pain with nausea and vomiting , vomitted 5-6 times intially ingested food subsequently clear liquid with bile no hemetmesis or melena, came to Ed for evaluation in the Ed w/u shows elevated Lipase Ct abd shows acute pancreatitis admitted for further management, no c/o fever, chills, hemetmesis melena, chest pain. Pt was made NPO and rehydrated with IVF. AMylase and lipase gradually down trended and pt was symptom free on 03/03. He was able to tolerate a full meal on 03/03. Pt deemed stable for discharge home. PATIENT ELOPED FROM HOSPITAL BEFORE DISCHARGE COMPLETED Provider called patient via phone and left message regarding his responsibility to obtain discharge papers/instructions prior to leaving hospital. Patient returned phone call and states, he has business to take care of at home. Condition: Improved - Instructions Disposition: ELOPED - Home Medications Comprehensive Discharge Medication List: Ambulatory Orders Fenofibrate 134 mg PO DAILY 07/20/17 Lisinopril [Prinivil] 5 mg PO DAILY 07/20/17 Elviteg/Cob/Emtri/Tenof Alafen [Genvoya Tablet] 1 each PO DAILY 02/26/18 This patient is new to me today: Yes Date on this admission: 03/04/18 Emergency Visit: Yes ED Registration Date: 02/28/18 Care time: The patient presented to the Emergency Department on the above date and was hospitalized for further evaluation of their emergent condition. Critical Care patient: No - Discharge Referral Referred to [facility] Med [facility] No
--- NOTE | 2018-04-09 10:58 | EKG ---
Test Reason : Blood Pressure : / mmHG Vent. Rate : 074 BPM Atrial Rate : 074 BPM P-R Int : 174 ms QRS Dur : 086 ms QT Int : 384 ms P-R-T Axes : 047 060 018 degrees QTc Int : 426 ms NORMAL SINUS RHYTHM NORMAL ECG WHEN COMPARED WITH ECG OF 20-JUL-2017 13:23, NO SIGNIFICANT CHANGE WAS FOUND Confirmed by Jonathan Go MD ([id number]) on 04/09/2018 10:57:51 AM Referred By: Confirmed By:Jonathan Go MD
== END 2018-03-04 13:23 | disposition left against medical advice (07) | DRG 439 ==
LOC: JER 10:20 → JERBED 16:13 → J8W 03-01 19:35
PROVIDERS: ADMIT Internal Medicine; ATTEND Nurse Practitioner Family
DX: K85.20 Alcohol induced acute pancreatitis without necrosis or infection (principal); F10.230 Alcohol dependence with withdrawal, uncomplicated; E78.5 Hyperlipidemia, unspecified; Z21 Asymptomatic human immunodeficiency virus [HIV] infection status; K21.9 Gastro-esophageal reflux disease without esophagitis; F17.210 Nicotine dependence, cigarettes, uncomplicated; I10 Essential (primary) hypertension
CPT/HCPCS: 36415; 74177-TC; 80048; 80053; 80061; 80076; 80307; 81003; 82150; 83605; 83615; 83690; 83721; 83735; 85025; 86140; 93005; 93010; 99285-25; J1644; J7030

== ENCOUNTER 2019-02-01 15:33 | Inpatient (IN) | payer OTHER ==
[2019-02-01 19:12] VITALS: BMI 24.7
--- NOTE | 2019-02-01 21:00 | HP ---
CIWA Score Nausea/Vomitin (vomiting x 2) Muscle Tremors: 3 Anxiety: 3 Agitation: 3 Paroxysmal Sweats: 2 Orientation: 1-Uncertain about Date Tacttile Disturbances: 0-None Auditory Disturbances: 0-None Visual Disturbances: 0-None Headache: 3-Moderate CIWA-Ar Total Score: 18 - Admission Criteria OASAS Guidelines: Admission for Medically Managed Detox: Requires at least one of the followin. CIWA greater than 12 2. Seizures within the past 24 hours 3. Delirium tremens within the past 24 hours 4. Hallucinations within the past 24 hours 5. Acute intervention needed for co occurring medical disorder 6. Acute intervention needed for co occurring psychiatric disorder 7. Severe withdrawal that cannot be handled at a lower level of care (continued vomiting, continued diarrhea, abnormal vital signs) requiring intravenous medication and/or fluids 8. Admitting History and Physical - Admission Chief Complaint: Alcohol withdrawal symptoms - Past Medical History Gastrointestinal: Yes: Pancreatitis Hepatobiliary: Yes: Cholecystitis Infectious Disease: Yes: HIV Psych: Yes: Depression - Past Surgical History Past Surgical History: Yes: Cholecystectomy (Laparoscopic: 2009) - Smoking History Smoking history: Current every day smoker Have you smoked in the past 12 months: Yes Aproximately how many cigarettes per day: 10 - Alcohol/Substance Use Hx Alcohol Use: Yes History of Substance Use: reports: None - Social History ADL: Independent Occupation: Unemployed History of Recent Travel: No Admission ROS [facility] Chief Complaint: Alcohol withdrawal symptoms Allergies/Adverse Reactions: Allergies Allergy/AdvReac Type Severity Reaction Status Date / Time No Known Allergies Allergy Verified 02/01/19 18:58 History of Present Illness: 58 years old with a long history of alcohol dependence is seeking admission to detox. Patient reports that his last detox was in February [address] [facility]. He reports that his longest period of sobriety is 2 years. He has medical history of HIV+, hypercholesterolemia, GERD, hypertension and Psych. history of Anxiety. He denies suicidal ideation at this time. He is unemployed and lives alone. He reports blackouts, last on January 25, 2019. Exam Limitations: No Limitations - Ebola screening Have you traveled outside of the country in the last 21 days: No (N) Have you had contact with anyone from an Ebola affected area: No Do you have a fever: No - Review of Systems Constitutional: Loss of Appetite, Malaise, Night Sweats, Changes in sleep, Unintentional Wgt. Loss (lost 10 pounds in 3 months) EENT: reports: Nose Congestion Respiratory: reports: No Symptoms reported Cardiac: reports: No Symptoms Reported GI: reports: Diarrhea, Poor Appetite, Poor Fluid Intake, Vomiting, Abdominal cramping : reports: No Symptoms Reported Musculoskeletal: reports: Back Pain, Joint Pain Integumentary: reports: Dryness, Flushing Neuro: reports: Tremors Endocrine: reports: No Symptoms Reported Hematology: reports: No Symptoms Reported Psychiatric: reports: No Sypmtoms Reported, Mood/Affect Appropiate, Orientated x3 Other Systems: Reviewed and Negative Patient History - Patient Medical History Hx Anemia: No Hx Asthma: No Hx Chronic Obstructive Pulmonary Disease (COPD): No Hx Cancer: No Hx Cardiac Disorders: No Hx Congestive Heart Failure: No Hx Hypertension: Yes (Lisinopril) Hx Hypercholesterolemia: Yes (Fenofibrate) Hx Pacemaker: No HX Cerebrovascular Accident: No Hx Seizures: No Hx Dementia: No Hx Diabetes: No Hx Gastrointestinal Disorders: Yes (hx of gastritis acid reflux.) Hx Liver Disease: Yes (hep. C treated 2005) Hx Genitourinary Disorders: No Hx Sexually Transmitted Disorders: Yes Hx Renal Disease (ESRD): No Hx Thyroid Disease: No Hx Human Immunodeficiency Virus (HIV): Yes (treated with Gemvoya, pt advised to have family bring meds) Hx Hepatitis C: Yes (Hep c treated in 2005) Hx Depression: No Hx Suicide Attempt: No (Denies suicidal ideation at this time) Hx Schizophrenia: No - Patient Surgical History Past Surgical History: Yes Hx Neurologic Surgery: No Hx Cataract Extraction: No Hx Cardiac Surgery: No Hx Lung Surgery: No Hx Breast Surgery: No Hx Breast Biopsy: No Hx Abdominal Surgery: No Hx Appendectomy: No Hx Cholecystectomy: Yes (2009) Hx Genitourinary Surgery: No Hx Section: No Hx Orthopedic Surgery: No Anesthesia Reaction: No - PPD History Previous Implant?: Yes Documented Results: Negative w/proof Implanted On Prior R Admission?: Yes Date: 07/22/17 Results: 0 MM PPD to be Administered?: Yes - Reproductive History Patient is a Female of Child Bearing Age (11 -55 yrs old): No (male) - Smoking Cessation Smoking history: Current every day smoker Have you smoked in the past 12 months: Yes Aproximately how many cigarettes per day: 10 Hx Chewing Tobacco Use: No Initiated information on smoking cessation: Yes 'Breaking Loose' booklet given: 02/01/19 - Substance & Tx. History Hx Alcohol Use: Yes Hx Substance Use: No Substance Use Type: Alcohol Hx Substance Use Treatment: Yes ([facility]) - Substances abused Alcohol Substance route: Oral Frequency: Daily Amount used: BEER- 1 CASE Age of first use: 13 Date of last use: 01/31/19 Admission Physical Exam S - Vital Signs Vital Signs: Vital Signs - 24 hr 02/01/19 02/01/19 18:49 19:11 Temperature 97.7 F 97.7 F Pulse Rate 72 72 Respiratory 20 20 Rate Blood Pressure 134/81 134/81 - Physical General Appearance: Yes: Moderate Distress, Tremorous, Sweating, Anxious HEENTM: Yes: EOMI, Normal ENT Inspection, Normocephalic, Normal Voice, GABBI Respiratory: Yes: Lungs Clear, Normal Breath Sounds, No Respiratory Distress Neck: Yes: Supple Breast: Yes: Breast Exam Deferred Cardiology: Yes: Regular Rhythm, Regular Rate Abdominal: Yes: Normal Bowel Sounds, Soft Genitourinary: Yes: Within Normal Limits Back: Yes: Normal Inspection Musculoskeletal: Yes: Within Normal Limits Extremities: Yes: Tremors Neurological: Yes: Within Normal Limits, Alert, Normal Mood/Affect Integumentary: Yes: Warm Lymphatic: Yes: Within Normal Limits - Diagnostic (1) Alcohol dependence with uncomplicated withdrawal Current Visit: Yes Status: Acute (2) GERD (gastroesophageal reflux disease) Current Visit: Yes Status: Chronic Qualifiers: Esophagitis presence: without esophagitis Qualified Code(s): K21.9 - Gastro -esophageal reflux disease without esophagitis (3) HIV (human immunodeficiency virus infection) Current Visit: Yes Status: Chronic Qualifiers: HIV symptom status: unspecified Qualified Code(s): B20 - Human immunodeficiency virus [HIV] disease (4) HLD (hyperlipidemia) Current Visit: Yes Status: Chronic Qualifiers: Hyperlipidemia type: unspecified Qualified Code(s): E78.5 - Hyperlipidemia , unspecified (5) HTN (hypertension) Current Visit: Yes Status: Chronic Qualifiers: Hypertension type: essential hypertension Qualified Code(s): I10 - Essential (primary) hypertension (6) Nicotine dependence Current Visit: Yes Status: Chronic Qualifiers: Nicotine product type: cigarettes Substance use status: uncomplicated Qualified Code(s): F17.210 - Nicotine dependence, cigarettes, uncomplicated Cleared for Admission [facility] - Detox or Rehab [facility] Level of Care: Medically Managed Detox Regimen/Protocol: Librium Claeared for Rehab Admission: No Breathalyzer - Breathalyzer Breathalyzer: 0 Urine Drug Screen - Test Device Lot number: [id number] Expiration date: 09/11/20 - Control Is test valid?: Yes - Results Drug screen NEGATIVE: Yes Inpatient Rehab Admission - Rehab Decision to Admit Inpatient rehab admission?: No
[2019-02-01] MEDS ORDERED: NICOTINE POLACRILEX 2 MG GUM BUC PRN (21:17)
[2019-02-01] MEDS ORDERED: hydrOXYzine PAMOATE 25 MG CAPSULE (FP) PO PRN (21:17)
[2019-02-01] MEDS ORDERED: METHOCARBAMOL 500 MG TABLET PO PRN (21:17)
[2019-02-01] MEDS ORDERED: IBUPROFEN 400 MG TABLET (FP) PO PRN (21:17)
[2019-02-01] MEDS ORDERED: MAGNESIUM HYDROX 2400MG/30ML ORAL SUSPENSION 30 ML CUP PO PRN (21:17)
[2019-02-01] MEDS ORDERED: ACETAMINOPHEN 325 MG TABLET (FP) PO PRN ×2 (21:17)
[2019-02-01] MEDS ORDERED: MENTHOL/PHENOL 1 EACH UD MM PRN (21:17)
[2019-02-01] MEDS ORDERED: MAG HYDROX/AL HYDROX/SIMETH 30 ML UNIT-DOSE CUP PO PRN (21:17)
[2019-02-01] MEDS ORDERED: MAGNESIUM CITRATE 300 ML BOTTLE PO PRN (21:17)
[2019-02-01] MEDS ORDERED: chlordiazePOXIDE HCL 25 MG CAPSULE PO PRN (21:17)
[2019-02-01] MEDS ORDERED: BISMUTH SUBSALICYLATE 524 MG/30 ML UD PO PRN (21:17)
[2019-02-01] MEDS: MELATONIN 5 MG TABLETS PO PRN (22:51)
[2019-02-01] MEDS: chlordiazePOXIDE HCL 25 MG CAPSULE PO SCH (22:51)
[2019-02-01] MEDS: THIAMINE HCL 100 MG TABLET (FP) PO SCH (22:51)
[2019-02-02] MEDS: chlordiazePOXIDE HCL 25 MG CAPSULE PO SCH ×4 (05:45→22:24)
[2019-02-02] MEDS ORDERED: FENOFIBRATE 134 MG PO SCH (10:00)
[2019-02-02] MEDS: NICOTINE 14 MG/24 HOURS TOPICAL PATCH TD SCH (10:13)
[2019-02-02] MEDS: LISINOPRIL 5 MG TABLET (FP) PO SCH (10:13)
[2019-02-02] MEDS: PRENATAL VITAMINS W/ FOLIC ACID TABLET (FP) PO SCH (10:13)
[2019-02-02 10:38] LABS: HEMATOCRIT 41.6 % (35.4-49); HEMOGLOBIN 13.9 GM/dL (11.7-16.9); MCH 30.9 pg (25.7-33.7); MCHC 33.3 g/dl (32.0-35.9); MEAN CELL VOLUME 92.7 fl (80-96); PLATELET COUNT 195 K/MM3 (134-434); RBC 4.49 M/mm3 (4.00-5.60); RDW 14.8 % (11.9-15.9); WHITE BLOOD COUNT 6.6 K/mm3 (4.0-10.0)
[2019-02-02 10:56] LABS: ALBUMIN 3.6 g/dl (3.4-5.0); BILIRUBIN,TOTAL 0.9 mg/dL (0.2-1); BLOOD UREA NITROGEN 19.1 mg/dL (7-18); CALCIUM 9.1 mg/dL (8.5-10.1); CREATININE 0.9 mg/dL (0.55-1.3); POTASSIUM 3.9 mmol/L (3.5-5.1); TOT PROT 6.8 g/dl (6.4-8.2)
--- NOTE | 2019-02-02 11:18 | PN ---
S CIWA - CIWA Score Nausea/Vomitin-Mild Nausea/No Vomiting Muscle Tremors: 3 Anxiety: 4-Mod. Anxious/Guarded Agitation: 3 Paroxysmal Sweats: 2 Orientation: 0-Oriented Tacttile Disturbances: 0-None Auditory Disturbances: 0-None Visual Disturbances: 0-None Headache: 1-Very Mild CIWA-Ar Total Score: 14 S Progress Note (SOAP) Subjective: 58 years old male admitted on 02/01/19 for alcohol withdrawal sx management treating with librium detox regimen ate breakfast tolerated food and fluid well ambulating on hallway social with peers discuss aftercare with staff patient determines to maintain sober by [facility] Objective: 02/02/19 11:19 Vital Signs Temperature 96.5 F L 02/02/19 09:15 Pulse Rate 87 02/02/19 09:15 Respiratory Rate 18 02/02/19 09:15 Blood Pressure 122/85 02/02/19 09:15 O2 Sat by Pulse Oximetry (%) Laboratory Last Values WBC 6.6 K/mm3 (4.0-10.0) 02/02/19 07:35 RBC 4.49 M/mm3 (4.00-5.60) 02/02/19 07:35 Hgb 13.9 GM/dL (11.7-16.9) 02/02/19 07:35 Hct 41.6 % (35.4-49) D 02/02/19 07:35 MCV 92.7 fl (80-96) 02/02/19 07:35 MCH 30.9 pg (25.7-33.7) 02/02/19 07:35 MCHC 33.3 g/dl (32.0-35.9) 02/02/19 07:35 RDW 14.8 % (11.9-15.9) D 02/02/19 07:35 Plt Count 195 K/MM3 (134-434) D 02/02/19 07:35 MPV 9.0 fl (7.5-11.1) 02/02/19 07:35 Sodium 139 mmol/L (136-145) 02/02/19 07:35 Potassium 3.9 mmol/L (3.5-5.1) 02/02/19 07:35 Chloride 104 mmol/L (98-107) 02/02/19 07:35 Carbon Dioxide 29 mmol/L (21-32) 02/02/19 07:35 Anion Gap 7 MMOL/L (8-16) L 02/02/19 07:35 BUN 19.1 mg/dL (7-18) H 02/02/19 07:35 Creatinine 0.9 mg/dL (0.55-1.3) 02/02/19 07:35 Est GFR (CKD-EPI)AfAm 107.97 02/02/19 07:35 Est GFR (CKD-EPI)NonAf 93.16 02/02/19 07:35 Random Glucose 151 mg/dL (74-106) H 02/02/19 07:35 Calcium 9.1 mg/dL (8.5-10.1) 02/02/19 07:35 Total Bilirubin 0.9 mg/dL (0.2-1) 02/02/19 07:35 AST 34 U/L (15-37) 02/02/19 07:35 ALT 54 U/L (13-61) 02/02/19 07:35 Alkaline Phosphatase 76 U/L (45-117) 02/02/19 07:35 Total Protein 6.8 g/dl (6.4-8.2) 02/02/19 07:35 Albumin 3.6 g/dl (3.4-5.0) 02/02/19 07:35 lab noted Assessment: 02/02/19 11:20 alcohol withdrawal sx Plan: librium detox regimen
[2019-02-02] MEDS: FENOFIBRIC ACID 135 MG CAP PO SCH (15:29)
--- NOTE | 2019-02-02 15:32 | CONSULT ---
[facility] Psychiatric Consult - Data Date of interview: 02/02/19 Admission source: [facility] Identifying data: Patient is a 58 year old single male, father of one, unemployed, domiciled, and is supported by SSI/SSD. This is one of multiple admissions for patient. Patient admitted to for alcohol dependence. Substance Abuse History: Smoking Cessation. Smoking history: Current every day smoker. Have you smoked in the past 12 months: Yes. Aproximately how many cigarettes per day: 10. Hx Chewing Tobacco Use: No. Initiated information on smoking cessation: Yes. 'Breaking Loose' booklet given: 02/01/19. - Substance & Tx. History. Hx Alcohol Use: Yes. Hx Substance Use: No. Substance Use Type : Alcohol. Hx Substance Use Treatment: Yes ([facility]). - Substances abused. Alcohol. Substance route: Oral. Frequency: Daily. Amount used: BEER- 1 CASE. Age of first use: 13. Date of last use: 01/31/19 Medical History: hypertension, Hypercholesterolemia, HIV, Hep C (treated), gastritis, acid reflux Psychiatric History: Patient denies history of psychiatric hospitalizations and suicide attempt. Mr. Gomez reports seeing a psychiatrist in the [place] from [id number] who diagnosed him with anxiety and prescribed him klonopin. States he is no longer provided with psychiatric care. At present patient reports stable mood and is not interested in additional medications. Physical/Sexual Abuse/Trauma History: denies. Mental Status Exam - Mental Status Exam Alert and Oriented to: Time, Place, Person Cognitive Function: Good Patient Appearance: Well Groomed Mood: Withdrawn Affect: Appropriate Patient Behavior: Appropriate, Cooperative Speech Pattern: Appropriate Voice Loudness: Normal Thought Process: Goal Oriented Thought Disorder: Not Present Hallucinations: Denies Suicidal Ideation: Denies Homicidal Ideation: Denies Insight/Judgement: Poor Sleep: Fair Appetite: Fair Muscle strength/Tone: Normal Gait/Station: Normal Psychiatric Findings - Problem List ([place] 1, 2,3) (1) Alcohol use disorder Current Visit: Yes Status: Acute (2) Alcohol dependence with uncomplicated withdrawal Current Visit: Yes Status: Acute (3) Nicotine dependence Current Visit: Yes Status: Chronic Qualifiers: Nicotine product type: cigarettes Substance use status: uncomplicated Qualified Code(s): F17.210 - Nicotine dependence, cigarettes, uncomplicated - Initial Treatment Plan Initial Treatment Plan: Psychoeducation provided. Detoxification in progress. Vistaril 25mg q6h ordered by PHARMACEUTICAL SPECIALTY REPRESENTATIVE. Observation.
--- NOTE | 2019-02-02 18:44 | EKG ---
Test Reason : Blood Pressure : / mmHG Vent. Rate : 064 BPM Atrial Rate : 064 BPM P-R Int : 186 ms QRS Dur : 080 ms QT Int : 404 ms P-R-T Axes : 035 059 028 degrees QTc Int : 416 ms SINUS RHYTHM WITH PREMATURE ATRIAL COMPLEXES OTHERWISE NORMAL ECG WHEN COMPARED WITH ECG OF 28-FEB-2018 17:12, PREMATURE ATRIAL COMPLEXES ARE NOW PRESENT Confirmed by ZORAIDA LÓPEZ MD ([id number]) on 02/02/2019 6:43:56 PM Referred By: Confirmed By:ZORAIDA LÓPEZ MD
[2019-02-02] MEDS: MELATONIN 5 MG TABLETS PO PRN (22:24)
[2019-02-02] MEDS: THIAMINE HCL 100 MG TABLET (FP) PO SCH (22:24)
[2019-02-03] MEDS: chlordiazePOXIDE HCL 25 MG CAPSULE PO SCH ×4 (05:51→22:05)
[2019-02-03] MEDS: FENOFIBRIC ACID 135 MG CAP PO SCH (10:06)
[2019-02-03] MEDS: PRENATAL VITAMINS W/ FOLIC ACID TABLET (FP) PO SCH (10:07)
[2019-02-03] MEDS: NICOTINE 14 MG/24 HOURS TOPICAL PATCH TD SCH (10:07)
[2019-02-03] MEDS: LISINOPRIL 5 MG TABLET (FP) PO SCH (10:07)
--- NOTE | 2019-02-03 11:21 | PN ---
[facility] CIWA - CIWA Score Nausea/Vomitin-Mild Nausea/No Vomiting Muscle Tremors: 3 Anxiety: 3 Agitation: 2 Paroxysmal Sweats: 2 Orientation: 1-Uncertain about Date (date of week) Tacttile Disturbances: 0-None Auditory Disturbances: 0-None Visual Disturbances: 0-None Headache: 0-None Present CIWA-Ar Total Score: 12 [facility] Progress Note (SOAP) Subjective: 58 years old male admitted on 02/01/19 for alcohol withdrawal sx management treating with librium detox regimen ate breakfast resting on bed encourage to attend groups and meetings Objective: 02/03/19 11:18 Vital Signs Temperature 96.9 F L 02/03/19 06:54 Pulse Rate 63 02/03/19 06:54 Respiratory Rate 18 02/03/19 06:54 Blood Pressure 99/63 02/03/19 06:54 O2 Sat by Pulse Oximetry (%) Laboratory Last Values WBC 6.6 K/mm3 (4.0-10.0) 02/02/19 07:35 RBC 4.49 M/mm3 (4.00-5.60) 02/02/19 07:35 Hgb 13.9 GM/dL (11.7-16.9) 02/02/19 07:35 Hct 41.6 % (35.4-49) D 02/02/19 07:35 MCV 92.7 fl (80-96) 02/02/19 07:35 MCH 30.9 pg (25.7-33.7) 02/02/19 07:35 MCHC 33.3 g/dl (32.0-35.9) 02/02/19 07:35 RDW 14.8 % (11.9-15.9) D 02/02/19 07:35 Plt Count 195 K/MM3 (134-434) D 02/02/19 07:35 MPV 9.0 fl (7.5-11.1) 02/02/19 07:35 Sodium 139 mmol/L (136-145) 02/02/19 07:35 Potassium 3.9 mmol/L (3.5-5.1) 02/02/19 07:35 Chloride 104 mmol/L (98-107) 02/02/19 07:35 Carbon Dioxide 29 mmol/L (21-32) 02/02/19 07:35 Anion Gap 7 MMOL/L (8-16) L 02/02/19 07:35 BUN 19.1 mg/dL (7-18) H 02/02/19 07:35 Creatinine 0.9 mg/dL (0.55-1.3) 02/02/19 07:35 Est GFR (CKD-EPI)AfAm 107.97 02/02/19 07:35 Est GFR (CKD-EPI)NonAf 93.16 02/02/19 07:35 Random Glucose 151 mg/dL (74-106) H 02/02/19 07:35 Calcium 9.1 mg/dL (8.5-10.1) 02/02/19 07:35 Total Bilirubin 0.9 mg/dL (0.2-1) 02/02/19 07:35 AST 34 U/L (15-37) 02/02/19 07:35 ALT 54 U/L (13-61) 02/02/19 07:35 Alkaline Phosphatase 76 U/L (45-117) 02/02/19 07:35 Total Protein 6.8 g/dl (6.4-8.2) 02/02/19 07:35 Albumin 3.6 g/dl (3.4-5.0) 02/02/19 07:35 RPR Titer Nonreactive (NONREACTIVE) 02/02/19 07:35 lab noted glucose elevation encourage limitation of concentrated sugar 02/03/19 11:20 Assessment: 02/03/19 11:21 alcohol withdrawal Plan: librium regimen
[2019-02-03] MEDS: MELATONIN 5 MG TABLETS PO PRN (22:05)
[2019-02-03] MEDS: THIAMINE HCL 100 MG TABLET (FP) PO SCH (22:05)
[2019-02-04] MEDS ORDERED: chlordiazePOXIDE HCL 10 MG CAPSULE PO PRN
[2019-02-04] MEDS: chlordiazePOXIDE HCL 10 MG CAPSULE PO SCH ×4 (05:03→22:10)
--- NOTE | 2019-02-04 09:43 | PN ---
S CIWA - CIWA Score Nausea/Vomitin-Mild Nausea/No Vomiting Muscle Tremors: 2 Anxiety: 2 Agitation: 1-Slight > Activity Paroxysmal Sweats: 1-Minimal Palms Moist Orientation: 0-Oriented Tacttile Disturbances: 0-None Auditory Disturbances: 0-None Visual Disturbances: 0-None Headache: 1-Very Mild CIWA-Ar Total Score: 8 S Progress Note (SOAP) Subjective: 58 years old male admitted on 02/01/19 for alcohol withdrawal sx management treating with librium detox regimen feeling better today ate breakfast ambulating on hallway hesitate to discuss aftercare with staff Objective: 02/04/19 09:43 Vital Signs Temperature 97.7 F 02/04/19 09:00 Pulse Rate 70 02/04/19 09:00 Respiratory Rate 18 02/04/19 09:00 Blood Pressure 118/81 02/04/19 09:00 O2 Sat by Pulse Oximetry (%) Laboratory Last Values WBC 6.6 K/mm3 (4.0-10.0) 02/02/19 07:35 RBC 4.49 M/mm3 (4.00-5.60) 02/02/19 07:35 Hgb 13.9 GM/dL (11.7-16.9) 02/02/19 07:35 Hct 41.6 % (35.4-49) D 02/02/19 07:35 MCV 92.7 fl (80-96) 02/02/19 07:35 MCH 30.9 pg (25.7-33.7) 02/02/19 07:35 MCHC 33.3 g/dl (32.0-35.9) 02/02/19 07:35 RDW 14.8 % (11.9-15.9) D 02/02/19 07:35 Plt Count 195 K/MM3 (134-434) D 02/02/19 07:35 MPV 9.0 fl (7.5-11.1) 02/02/19 07:35 Sodium 139 mmol/L (136-145) 02/02/19 07:35 Potassium 3.9 mmol/L (3.5-5.1) 02/02/19 07:35 Chloride 104 mmol/L (98-107) 02/02/19 07:35 Carbon Dioxide 29 mmol/L (21-32) 02/02/19 07:35 Anion Gap 7 MMOL/L (8-16) L 02/02/19 07:35 BUN 19.1 mg/dL (7-18) H 02/02/19 07:35 Creatinine 0.9 mg/dL (0.55-1.3) 02/02/19 07:35 Est GFR (CKD-EPI)AfAm 107.97 02/02/19 07:35 Est GFR (CKD-EPI)NonAf 93.16 02/02/19 07:35 Random Glucose 151 mg/dL (74-106) H 02/02/19 07:35 Calcium 9.1 mg/dL (8.5-10.1) 02/02/19 07:35 Total Bilirubin 0.9 mg/dL (0.2-1) 02/02/19 07:35 AST 34 U/L (15-37) 02/02/19 07:35 ALT 54 U/L (13-61) 02/02/19 07:35 Alkaline Phosphatase 76 U/L (45-117) 02/02/19 07:35 Total Protein 6.8 g/dl (6.4-8.2) 02/02/19 07:35 Albumin 3.6 g/dl (3.4-5.0) 02/02/19 07:35 RPR Titer Nonreactive (NONREACTIVE) 02/02/19 07:35 lab noted appreciate truck sales representative recommendation of fasting glucose patient agrees to follow up [id number] with [facility] primary care provider 02/04/19 09:51 low range of bp hold lisinopril 5 mg po daily Assessment: 02/04/19 09:45 alcohol withdrawal 02/04/19 09:45 health teaching on alcohol induced glucose elevation Plan: librium regimen
[2019-02-04] MEDS: PRENATAL VITAMINS W/ FOLIC ACID TABLET (FP) PO SCH (10:04)
[2019-02-04] MEDS: FENOFIBRIC ACID 135 MG CAP PO SCH (10:04)
[2019-02-04] MEDS: NICOTINE 14 MG/24 HOURS TOPICAL PATCH TD SCH (10:04)
[2019-02-04] MEDS: THIAMINE HCL 100 MG TABLET (FP) PO SCH (22:09)
[2019-02-05] MEDS: chlordiazePOXIDE HCL 10 MG CAPSULE PO SCH ×2 (05:42→17:50)
[2019-02-05] MEDS: PRENATAL VITAMINS W/ FOLIC ACID TABLET (FP) PO SCH (10:11)
[2019-02-05] MEDS: FENOFIBRIC ACID 135 MG CAP PO SCH (10:12)
[2019-02-05] MEDS: NICOTINE 14 MG/24 HOURS TOPICAL PATCH TD SCH (10:12)
--- NOTE | 2019-02-05 13:32 | PN ---
[facility] CIWA - CIWA Score Nausea/Vomitin-No Nausea/No Vomiting Muscle Tremors: 1-None Visible, but [place] Anxiety: 2 Agitation: 0-Normal Activity Paroxysmal Sweats: 1-Minimal Palms Moist Orientation: 0-Oriented Tacttile Disturbances: 0-None Auditory Disturbances: 0-None Visual Disturbances: 0-None Headache: 0-None Present CIWA-Ar Total Score: 4 S Progress Note (SOAP) Subjective: 58 years old male admitted on 02/01/19 for alcohol withdrawal sx management treating with librium detox regimen glucose elevation fasting glucose today Objective: 02/05/19 13:34 Vital Signs Temperature 97.1 F L 02/05/19 09:18 Pulse Rate 93 H 02/05/19 09:18 Respiratory Rate 18 02/05/19 09:18 Blood Pressure 125/85 02/05/19 09:18 O2 Sat by Pulse Oximetry (%) Laboratory Last Values WBC 6.6 K/mm3 (4.0-10.0) 02/02/19 07:35 RBC 4.49 M/mm3 (4.00-5.60) 02/02/19 07:35 Hgb 13.9 GM/dL (11.7-16.9) 02/02/19 07:35 Hct 41.6 % (35.4-49) D 02/02/19 07:35 MCV 92.7 fl (80-96) 02/02/19 07:35 MCH 30.9 pg (25.7-33.7) 02/02/19 07:35 MCHC 33.3 g/dl (32.0-35.9) 02/02/19 07:35 RDW 14.8 % (11.9-15.9) D 02/02/19 07:35 Plt Count 195 K/MM3 (134-434) D 02/02/19 07:35 MPV 9.0 fl (7.5-11.1) 02/02/19 07:35 Sodium 139 mmol/L (136-145) 02/02/19 07:35 Potassium 3.9 mmol/L (3.5-5.1) 02/02/19 07:35 Chloride 104 mmol/L (98-107) 02/02/19 07:35 Carbon Dioxide 29 mmol/L (21-32) 02/02/19 07:35 Anion Gap 7 MMOL/L (8-16) L 02/02/19 07:35 BUN 19.1 mg/dL (7-18) H 02/02/19 07:35 Creatinine 0.9 mg/dL (0.55-1.3) 02/02/19 07:35 Est GFR (CKD-EPI)AfAm 107.97 02/02/19 07:35 Est GFR (CKD-EPI)NonAf 93.16 02/02/19 07:35 Random Glucose 151 mg/dL (74-106) H 02/02/19 07:35 Fasting Glucose 210 mg/dL (74-106) H 02/05/19 07:50 Calcium 9.1 mg/dL (8.5-10.1) 02/02/19 07:35 Total Bilirubin 0.9 mg/dL (0.2-1) 02/02/19 07:35 AST 34 U/L (15-37) 02/02/19 07:35 ALT 54 U/L (13-61) 02/02/19 07:35 Alkaline Phosphatase 76 U/L (45-117) 02/02/19 07:35 Total Protein 6.8 g/dl (6.4-8.2) 02/02/19 07:35 Albumin 3.6 g/dl (3.4-5.0) 02/02/19 07:35 RPR Titer Nonreactive (NONREACTIVE) 02/02/19 07:35 lab noted fasting glucose higher than random level 02/05/19 13:35 Assessment: 02/05/19 13:35 alcohol withdrawal Plan: librium regimen patient agrees to returning to primary care ID for glucose tolerance testing
[2019-02-05] MEDS: MELATONIN 5 MG TABLETS PO PRN (21:54)
[2019-02-05] MEDS: THIAMINE HCL 100 MG TABLET (FP) PO SCH (21:55)
[2019-02-06] MEDS ORDERED: chlordiazePOXIDE HCL 10 MG CAPSULE PO ONE (05:00)
[2019-02-06 06:13] VITALS: BP 110/68; PULSE 65; TEMP 97
--- NOTE | 2019-02-06 12:50 | DS ---
[facility] Detox Discharge Summary Admission Date: 02/01/19 Discharge Date: 02/06/19 - History Present History: Alcohol Dependence Additional Comments: 58 years old male admitted on 02/01/19 for alcohol withdrawal sx management treated with librium detox regimen patient tolerated well alert oriented x 3 respiratory clear lung bilaterally on auscultation extremities full range of motion skin warm and dry - Physical Exam Results Vital Signs: Vital Signs Temperature 97 F L 02/06/19 06:13 Pulse Rate 65 02/06/19 06:13 Respiratory Rate 18 02/06/19 06:13 Blood Pressure 110/68 02/06/19 06:13 O2 Sat by Pulse Oximetry (%) Pertinent Admission Physical Exam Findings: alcohol withdrawal Laboratory Last Values WBC 6.6 K/mm3 (4.0-10.0) 02/02/19 07:35 RBC 4.49 M/mm3 (4.00-5.60) 02/02/19 07:35 Hgb 13.9 GM/dL (11.7-16.9) 02/02/19 07:35 Hct 41.6 % (35.4-49) D 02/02/19 07:35 MCV 92.7 fl (80-96) 02/02/19 07:35 MCH 30.9 pg (25.7-33.7) 02/02/19 07:35 MCHC 33.3 g/dl (32.0-35.9) 02/02/19 07:35 RDW 14.8 % (11.9-15.9) D 02/02/19 07:35 Plt Count 195 K/MM3 (134-434) D 02/02/19 07:35 MPV 9.0 fl (7.5-11.1) 02/02/19 07:35 Sodium 139 mmol/L (136-145) 02/02/19 07:35 Potassium 3.9 mmol/L (3.5-5.1) 02/02/19 07:35 Chloride 104 mmol/L (98-107) 02/02/19 07:35 Carbon Dioxide 29 mmol/L (21-32) 02/02/19 07:35 Anion Gap 7 MMOL/L (8-16) L 02/02/19 07:35 BUN 19.1 mg/dL (7-18) H 02/02/19 07:35 Creatinine 0.9 mg/dL (0.55-1.3) 02/02/19 07:35 Est GFR (CKD-EPI)AfAm 107.97 02/02/19 07:35 Est GFR (CKD-EPI)NonAf 93.16 02/02/19 07:35 Random Glucose 151 mg/dL (74-106) H 02/02/19 07:35 Fasting Glucose 210 mg/dL (74-106) H 02/05/19 07:50 Calcium 9.1 mg/dL (8.5-10.1) 02/02/19 07:35 Total Bilirubin 0.9 mg/dL (0.2-1) 02/02/19 07:35 AST 34 U/L (15-37) 02/02/19 07:35 ALT 54 U/L (13-61) 02/02/19 07:35 Alkaline Phosphatase 76 U/L (45-117) 02/02/19 07:35 Total Protein 6.8 g/dl (6.4-8.2) 02/02/19 07:35 Albumin 3.6 g/dl (3.4-5.0) 02/02/19 07:35 RPR Titer Nonreactive (NONREACTIVE) 02/02/19 07:35 lab noted random and fasting glucose normal range is from 74 to 106 appears fasting glucose 210 higher than random glucose of 151 patient agrees to bringing in to primary care ID provider follow up - Treatment Hospital Course: Detox Protocol Followed, Detoxed Safely, Responded well, Discharged Condition Good, Rehab Referral Accepted Patient has Accepted a Rehab Referral to: community support approach - Medication Discharge Medications: Ambulatory Orders Fenofibrate 134 mg PO DAILY 07/20/17 Lisinopril [Prinivil] 5 mg PO DAILY 07/20/17 Elviteg/Cob/Emtri/Tenof Alafen [Genvoya Tablet] 1 each PO DAILY 02/26/18 Clonazepam [Klonopin] 1 mg PO BID 02/01/19 - Diagnosis (1) Alcohol dependence with uncomplicated withdrawal Status: Acute (2) GERD (gastroesophageal reflux disease) Status: Chronic Qualifiers: Esophagitis presence: without esophagitis Qualified Code(s): K21.9 - Gastro -esophageal reflux disease without esophagitis (3) HIV (human immunodeficiency virus infection) Status: Chronic Qualifiers: HIV symptom status: asymptomatic Qualified Code(s): Z21 - Asymptomatic human immunodeficiency virus [HIV] infection status (4) HLD (hyperlipidemia) Status: Chronic Qualifiers: Hyperlipidemia type: unspecified Qualified Code(s): E78.5 - Hyperlipidemia , unspecified (5) HTN (hypertension) Status: Chronic Qualifiers: Hypertension type: essential hypertension Qualified Code(s): I10 - Essential (primary) hypertension (6) Nicotine dependence Status: Acute Qualifiers: Nicotine product type: cigarettes Substance use status: in withdrawal Qualified Code(s): F17.213 - Nicotine dependence, cigarettes, with withdrawal (7) Substance induced mood disorder Status: Suspected - AMA Did Patient Leave Against Medical Advice: No CIWA Score - CIWA Score Nausea/Vomitin-No Nausea/No Vomiting Muscle Tremors: 1-None Visible, but [place] Anxiety: 1-Mildly Anxious Agitation: 0-Normal Activity Paroxysmal Sweats: No Perspiration Orientation: 0-Oriented Tacttile Disturbances: 0-None Auditory Disturbances: 0-None Visual Disturbances: 0-None Headache: 0-None Present CIWA-Ar Total Score: 2
== END 2019-02-06 08:58 | disposition home or self-care (01) | DRG 897 ==
LOC: YASAS 15:33 → Y3N 21:50
PROVIDERS: ADMIT Allergy & Immunology; ATTEND Allergy & Immunology
PROC: HZ2ZZZZ Detoxification Services for Substance Abuse Treatment (ICD-10-PCS; principal; 2019-02-01)
DX: F10.230 Alcohol dependence with withdrawal, uncomplicated (principal); F17.213 Nicotine dependence, cigarettes, with withdrawal; F19.24 Other psychoactive substance dependence with psychoactive substance-induced mood disorder; F41.9 Anxiety disorder, unspecified; Z21 Asymptomatic human immunodeficiency virus [HIV] infection status; I10 Essential (primary) hypertension; E78.5 Hyperlipidemia, unspecified; K21.9 Gastro-esophageal reflux disease without esophagitis; Z87.19 Personal history of other diseases of the digestive system; Z86.19 Personal history of other infectious and parasitic diseases; Z90.49 Acquired absence of other specified parts of digestive tract
CPT/HCPCS: 36415; 80053; 82947; 85027; 86593; 93005; 93010

== ENCOUNTER 2020-12-31 15:21 | Inpatient (IN) | payer OTHER ==
[2020-12-31 18:15] VITALS: BMI 24.1
[2020-12-31] MEDS ORDERED: BISMUTH SUBSALICYLATE 524 MG/30 ML PO PRN (18:47)
[2020-12-31] MEDS ORDERED: METHOCARBAMOL 500 MG TABLET PO PRN (18:47)
[2020-12-31] MEDS ORDERED: MAGNESIUM CITRATE 300 ML BOTTLE PO PRN (18:47)
[2020-12-31] MEDS ORDERED: ACETAMINOPHEN 325 MG TABLET (FP) PO PRN ×2 (18:47)
[2020-12-31] MEDS ORDERED: ONDANSETRON *ODT* 4 MG TABLET SL PRN (18:47)
[2020-12-31] MEDS ORDERED: P-EPHED 60MG/TRIPROLIDI 2.5MG TABLET PO PRN (18:47)
[2020-12-31] MEDS ORDERED: NICOTINE 10 MG CARTRIDGE (INHALER) IH PRN (18:47)
[2020-12-31] MEDS ORDERED: NALOXONE HCL 0.4 MG/ML VIAL IM PRN (18:47)
[2020-12-31] MEDS ORDERED: guaiFENesin 200 MG/10 ML 10 ML UNIT-DOSE CUPS PO PRN (18:47)
[2020-12-31] MEDS ORDERED: DICYCLOMINE HCL 10 MG CAPSULE PO PRN (18:47)
[2020-12-31] MEDS ORDERED: LORazepam 1 MG TABLET PO PRN (18:47)
[2020-12-31] MEDS ORDERED: NALOXONE (NARCAN) HCL 4 MG/0.1 ML SPRAY NS PRN (18:47)
[2020-12-31] MEDS ORDERED: MAG HYDROX/AL HYDROX/SIMETH 30 ML UNIT-DOSE CUP PO PRN (18:47)
[2020-12-31] MEDS ORDERED: MAGNESIUM HYDROX 2400MG/30ML ORAL SUSPENSION 30 ML CUP PO PRN (18:47)
[2020-12-31] MEDS ORDERED: IBUPROFEN 400 MG TABLET (FP) PO PRN (18:47)
[2020-12-31] MEDS ORDERED: MENTHOL/PHENOL 1 EACH UD MM PRN (18:47)
[2020-12-31] MEDS: THIAMINE HCL 100 MG TABLET (FP) PO SCH (21:13)
[2020-12-31] MEDS: MELATONIN 5 MG TABLETS PO SCH (21:17)
[2020-12-31] MEDS: LORazepam 2 MG TABLET PO SCH (22:00)
[2021-01-01] MEDS: LORazepam 2 MG TABLET PO SCH ×4 (05:19→22:08)
[2021-01-01] MEDS: metFORMIN HCL 500 MG TABLET (FP) PO SCH ×2 (06:29→16:54)
[2021-01-01] MEDS: NICOTINE 21 MG/24 HOURS TOPICAL PATCH TD SCH (10:27)
[2021-01-01] MEDS: ELVITEG/COB/EMTRI/TENOF (GENVOYA) TABLET (NF) PO SCH (10:28)
[2021-01-01] MEDS: FENOFIBRIC ACID 135 MG CAP PO SCH (10:28)
[2021-01-01] MEDS: PRENATAL VITAMINS W/ FOLIC ACID TABLET (FP) PO SCH (10:28)
[2021-01-01] MEDS: LISINOPRIL 5 MG TABLET PO SCH (10:28)
[2021-01-01 13:45] LABS: HEMATOCRIT 42.7 % (35.4-49); HEMOGLOBIN 14.5 GM/dL (11.7-16.9); MCH 32.1 pg (25.7-33.7); MCHC 34.1 g/dl (32.0-35.9); MEAN CELL VOLUME 94.3 fl (80-96); MEAN PLT VOLUME 8.6 fl (7.5-11.1); PLATELET COUNT 257 10^3/uL (134-434); RBC 4.52 M/mm3 (4.00-5.60); RDW 13.1 % (11.9-15.9); WHITE BLOOD COUNT 7.9 K/mm3 (4.0-10.0)
[2021-01-01 14:02] LABS: CALCIUM 8.9 mg/dL (8.5-10.1)
[2021-01-01 14:03] LABS: ALBUMIN 3.2 g/dl (3.4-5.0)
[2021-01-01 14:06] LABS: CREATININE 1.1 mg/dL (0.55-1.3)
[2021-01-01 14:07] LABS: BILIRUBIN,TOTAL 0.9 mg/dL (0.2-1); TOT PROT 7.4 g/dl (6.4-8.2)
[2021-01-01] MEDS: MELATONIN 5 MG TABLETS PO SCH (22:09)
[2021-01-01] MEDS: THIAMINE HCL 100 MG TABLET (FP) PO SCH (22:09)
[2021-01-02] MEDS: LORazepam 1 MG TABLET PO SCH ×4 (05:19→22:32)
[2021-01-02] MEDS: metFORMIN HCL 500 MG TABLET (FP) PO SCH ×2 (06:28→17:02)
[2021-01-02] MEDS: ELVITEG/COB/EMTRI/TENOF (GENVOYA) TABLET (NF) PO SCH (10:08)
[2021-01-02] MEDS: FENOFIBRIC ACID 135 MG CAP PO SCH (10:08)
[2021-01-02] MEDS: NICOTINE 21 MG/24 HOURS TOPICAL PATCH TD SCH (10:08)
[2021-01-02] MEDS: PRENATAL VITAMINS W/ FOLIC ACID TABLET (FP) PO SCH (10:09)
[2021-01-02] MEDS: LISINOPRIL 5 MG TABLET PO SCH (10:09)
[2021-01-02] MEDS: guaiFENesin 200 MG/10 ML 10 ML UNIT-DOSE CUPS PO SCH ×3 (13:03→22:51)
[2021-01-02] MEDS: MELATONIN 5 MG TABLETS PO SCH (22:33)
[2021-01-02] MEDS: THIAMINE HCL 100 MG TABLET (FP) PO SCH (22:34)
[2021-01-02] MEDS ORDERED: INSULIN (NOVOLOG) ASPART 100 UNITS/ML 10ML VIAL SQ ONE (22:45)
[2021-01-03] MEDS ORDERED: LORazepam 0.5 MG TABLET PO PRN
[2021-01-03] MEDS: metFORMIN HCL 500 MG TABLET (FP) PO SCH ×2 (05:59→17:57)
[2021-01-03] MEDS: LORazepam 0.5 MG TABLET PO SCH ×4 (06:00→22:39)
[2021-01-03] MEDS: guaiFENesin 200 MG/10 ML 10 ML UNIT-DOSE CUPS PO SCH ×4 (06:00→23:08)
[2021-01-03] MEDS: FENOFIBRIC ACID 135 MG CAP PO SCH (10:11)
[2021-01-03] MEDS: PRENATAL VITAMINS W/ FOLIC ACID TABLET (FP) PO SCH (10:11)
[2021-01-03] MEDS: LISINOPRIL 5 MG TABLET PO SCH (10:12)
[2021-01-03] MEDS: NICOTINE 21 MG/24 HOURS TOPICAL PATCH TD SCH (10:13)
[2021-01-03] MEDS: ELVITEG/COB/EMTRI/TENOF (GENVOYA) TABLET (NF) PO SCH (15:42)
[2021-01-03] MEDS ORDERED: INSULIN (NOVOLOG) ASPART 100 UNITS/ML 10ML VIAL SQ ONE (16:48)
[2021-01-03] MEDS ORDERED: INSULIN SLIDING SCALE (NOVOLOG) 1 VIAL SQ ONE (18:07)
[2021-01-03] MEDS: MELATONIN 5 MG TABLETS PO SCH (22:39)
[2021-01-03] MEDS: THIAMINE HCL 100 MG TABLET (FP) PO SCH (22:39)
[2021-01-04] MEDS ORDERED: LORazepam 0.5 MG TABLET PO ONE (05:00)
[2021-01-04] MEDS: guaiFENesin 200 MG/10 ML 10 ML UNIT-DOSE CUPS PO SCH (05:14)
[2021-01-04] MEDS: metFORMIN HCL 500 MG TABLET (FP) PO SCH (06:12)
[2021-01-04] MEDS: ELVITEG/COB/EMTRI/TENOF (GENVOYA) TABLET (NF) PO SCH (07:04)
[2021-01-04 09:23] VITALS: BP 121/83; PULSE 90; TEMP 97.7
== END 2021-01-04 09:13 | disposition home or self-care (01) | DRG 897 ==
LOC: YASAS 15:21 → Y3N 20:17
PROVIDERS: ADMIT Allergy & Immunology; ATTEND Allergy & Immunology
PROC: HZ2ZZZZ Detoxification Services for Substance Abuse Treatment (ICD-10-PCS; principal; 2020-12-31)
DX: F10.230 Alcohol dependence with withdrawal, uncomplicated (principal); F19.280 Other psychoactive substance dependence with psychoactive substance-induced anxiety disorder; F17.210 Nicotine dependence, cigarettes, uncomplicated; F19.24 Other psychoactive substance dependence with psychoactive substance-induced mood disorder; Z21 Asymptomatic human immunodeficiency virus [HIV] infection status; G47.00 Insomnia, unspecified; I10 Essential (primary) hypertension; K21.9 Gastro-esophageal reflux disease without esophagitis; E78.5 Hyperlipidemia, unspecified; E88.09 Other disorders of plasma-protein metabolism, not elsewhere classified; E11.65 Type 2 diabetes mellitus with hyperglycemia; Z96.642 Presence of left artificial hip joint; Z79.84 Long term (current) use of oral hypoglycemic drugs; Z87.19 Personal history of other diseases of the digestive system; Z90.49 Acquired absence of other specified parts of digestive tract
CPT/HCPCS: 36415; 80053; 82962; 85027; 86780; C9803; U0003; U0005

== ENCOUNTER 2021-05-16 17:55 | Inpatient (IN) | payer OTHER ==
[2021-05-16] MEDS ORDERED: ALBUTEROL SO4 0.083% IH SOL 2.5 MG/3 ML VIAL.NEB. NEB ONE (19:03)
[2021-05-17] MEDS ORDERED: MAG HYDROX/AL HYDROX/SIMETH 30 ML UNIT-DOSE CUP PO PRN (03:45)
[2021-05-17] MEDS ORDERED: MAGNESIUM HYDROX 2400MG/30ML ORAL SUSPENSION 30 ML CUP PO PRN (03:45)
[2021-05-17] MEDS ORDERED: IBUPROFEN 400 MG TABLET (FP) PO PRN (03:45)
[2021-05-17] MEDS ORDERED: LOPERAMIDE HCL 2 MG CAPSULE PO PRN (03:45)
[2021-05-17] MEDS ORDERED: chlordiazePOXIDE HCL 25 MG CAPSULE PO PRN (03:45)
[2021-05-17] MEDS ORDERED: BISMUTH SUBSALICYLATE 524 MG/30 ML PO PRN (03:45)
[2021-05-17] MEDS ORDERED: NICOTINE POLACRILEX 2 MG GUM BUC PRN (03:45)
[2021-05-17] MEDS ORDERED: ONDANSETRON *ODT* 4 MG TABLET SL PRN (03:45)
[2021-05-17] MEDS ORDERED: METHOCARBAMOL 500 MG TABLET PO PRN (03:45)
[2021-05-17] MEDS ORDERED: ACETAMINOPHEN 325 MG TABLET (FP) PO PRN ×2 (03:45)
[2021-05-17] MEDS ORDERED: MENTHOL/PHENOL 1 EACH UD MM PRN (03:45)
[2021-05-17] MEDS ORDERED: MAGNESIUM CITRATE 300 ML BOTTLE PO PRN (03:45)
[2021-05-17] MEDS ORDERED: NICOTINE 10 MG CARTRIDGE (INHALER) IH PRN (03:45)
[2021-05-17] MEDS ORDERED: DICYCLOMINE HCL 10 MG CAPSULE PO PRN (03:45)
[2021-05-17] MEDS: chlordiazePOXIDE HCL 25 MG CAPSULE PO SCH ×4 (04:54→22:05)
[2021-05-17 08:17] VITALS: BMI 22.7
[2021-05-17] MEDS: PRENATAL VITAMINS W/ FOLIC ACID TABLET (FP) PO SCH (10:16)
[2021-05-17] MEDS: NICOTINE 21 MG/24 HOURS TOPICAL PATCH TD SCH (10:19)
[2021-05-17] MEDS: LISINOPRIL 5 MG TABLET PO SCH (12:38)
[2021-05-17] MEDS: ELVITEG/COB/EMTRI/TENOF (GENVOYA) TABLET (NF) PO SCH (13:27)
[2021-05-17] MEDS: FENOFIBRIC ACID 135 MG CAP PO SCH (13:28)
[2021-05-17] MEDS: MELATONIN 5 MG TABLETS PO SCH (22:04)
[2021-05-17] MEDS: THIAMINE HCL 100 MG TABLET (FP) PO SCH (22:05)
[2021-05-18] MEDS: chlordiazePOXIDE HCL 25 MG CAPSULE PO SCH ×4 (05:22→22:15)
[2021-05-18] MEDS: ELVITEG/COB/EMTRI/TENOF (GENVOYA) TABLET (NF) PO SCH (07:27)
[2021-05-18] MEDS: FENOFIBRIC ACID 135 MG CAP PO SCH (10:19)
[2021-05-18] MEDS: ESCITALOPRAM OXALATE 10 MG TABLET PO SCH (10:19)
[2021-05-18] MEDS: LISINOPRIL 5 MG TABLET PO SCH (10:19)
[2021-05-18] MEDS: PRENATAL VITAMINS W/ FOLIC ACID TABLET (FP) PO SCH (10:19)
[2021-05-18] MEDS: NICOTINE 21 MG/24 HOURS TOPICAL PATCH TD SCH (10:21)
[2021-05-18] MEDS: INSULIN SLIDING SCALE (NOVOLOG) 1 VIAL SQ SCH ×2 (17:21→21:24)
[2021-05-18] MEDS: MELATONIN 5 MG TABLETS PO SCH (22:15)
[2021-05-18] MEDS: THIAMINE HCL 100 MG TABLET (FP) PO SCH (22:15)
[2021-05-19] MEDS ORDERED: chlordiazePOXIDE HCL 10 MG CAPSULE PO PRN
[2021-05-19] MEDS: chlordiazePOXIDE HCL 10 MG CAPSULE PO SCH ×4 (06:06→22:17)
[2021-05-19] MEDS: INSULIN SLIDING SCALE (NOVOLOG) 1 VIAL SQ SCH ×4 (06:10→22:21)
[2021-05-19] MEDS: ELVITEG/COB/EMTRI/TENOF (GENVOYA) TABLET (NF) PO SCH (07:15)
[2021-05-19 09:29] LABS: HEMATOCRIT 41.3 % (35.4-49); HEMOGLOBIN 13.8 GM/dL (11.7-16.9); MCHC 33.5 g/dl (32.0-35.9); MEAN CELL VOLUME 89.6 fl (80-96); MEAN PLT VOLUME 8.7 fl (7.5-11.1); PLATELET COUNT 193 10^3/uL (134-434); RDW 14.3 % (11.9-15.9); WHITE BLOOD COUNT 5.3 K/mm3 (4.0-10.0)
[2021-05-19 09:43] LABS: CALCIUM 9.3 mg/dL (8.5-10.1)
[2021-05-19 09:44] LABS: ALBUMIN 3.3 g/dl (3.4-5.0); BLOOD UREA NITROGEN 15.8 mg/dL (7-18)
[2021-05-19 09:47] LABS: CREATININE 1.2 mg/dL (0.55-1.3)
[2021-05-19 09:49] LABS: BILIRUBIN,TOTAL 0.8 mg/dL (0.2-1); TOT PROT 6.8 g/dl (6.4-8.2)
[2021-05-19] MEDS: FENOFIBRIC ACID 135 MG CAP PO SCH (10:19)
[2021-05-19] MEDS: LISINOPRIL 5 MG TABLET PO SCH (10:19)
[2021-05-19] MEDS: PRENATAL VITAMINS W/ FOLIC ACID TABLET (FP) PO SCH (10:19)
[2021-05-19] MEDS: NICOTINE 21 MG/24 HOURS TOPICAL PATCH TD SCH (10:19)
[2021-05-19] MEDS: ESCITALOPRAM OXALATE 10 MG TABLET PO SCH (10:19)
[2021-05-19 16:08] LABS: SARS-CoV-2 NAA Not Detected (Not Detected)
[2021-05-19] MEDS: THIAMINE HCL 100 MG TABLET (FP) PO SCH (22:18)
[2021-05-19] MEDS: MELATONIN 5 MG TABLETS PO SCH (22:18)
[2021-05-20] MEDS: chlordiazePOXIDE HCL 10 MG CAPSULE PO SCH ×2 (05:35→17:10)
[2021-05-20] MEDS: INSULIN SLIDING SCALE (NOVOLOG) 1 VIAL SQ SCH ×4 (07:49→22:10)
[2021-05-20] MEDS: ELVITEG/COB/EMTRI/TENOF (GENVOYA) TABLET (NF) PO SCH (07:54)
[2021-05-20] MEDS: ESCITALOPRAM OXALATE 10 MG TABLET PO SCH (10:26)
[2021-05-20] MEDS: PRENATAL VITAMINS W/ FOLIC ACID TABLET (FP) PO SCH (10:26)
[2021-05-20] MEDS: LISINOPRIL 5 MG TABLET PO SCH (10:26)
[2021-05-20] MEDS: FENOFIBRIC ACID 135 MG CAP PO SCH (10:28)
[2021-05-20] MEDS: NICOTINE 21 MG/24 HOURS TOPICAL PATCH TD SCH (10:28)
[2021-05-20] MEDS: MELATONIN 5 MG TABLETS PO SCH (22:08)
[2021-05-20] MEDS: THIAMINE HCL 100 MG TABLET (FP) PO SCH (22:08)
[2021-05-21] MEDS ORDERED: chlordiazePOXIDE HCL 10 MG CAPSULE PO ONE (05:00)
[2021-05-21] MEDS: ELVITEG/COB/EMTRI/TENOF (GENVOYA) TABLET (NF) PO SCH (07:01)
[2021-05-21] MEDS: INSULIN SLIDING SCALE (NOVOLOG) 1 VIAL SQ SCH (07:01)
[2021-05-21 08:55] VITALS: BP 112/70; PULSE 80; TEMP 97.3
== END 2021-05-21 09:13 | disposition home or self-care (01) | DRG 897 ==
LOC: YASAS 17:55 → Y3N 05-17 03:42
PROVIDERS: ADMIT Allergy & Immunology; ATTEND Allergy & Immunology
PROC: HZ2ZZZZ Detoxification Services for Substance Abuse Treatment (ICD-10-PCS; principal; 2021-05-17)
DX: F10.230 Alcohol dependence with withdrawal, uncomplicated (principal); K86.0 Alcohol-induced chronic pancreatitis; F17.210 Nicotine dependence, cigarettes, uncomplicated; F19.24 Other psychoactive substance dependence with psychoactive substance-induced mood disorder; F41.9 Anxiety disorder, unspecified; Z21 Asymptomatic human immunodeficiency virus [HIV] infection status; G47.00 Insomnia, unspecified; E78.5 Hyperlipidemia, unspecified; E11.9 Type 2 diabetes mellitus without complications; Z79.84 Long term (current) use of oral hypoglycemic drugs; I10 Essential (primary) hypertension; K21.9 Gastro-esophageal reflux disease without esophagitis; Z86.19 Personal history of other infectious and parasitic diseases
CPT/HCPCS: 36415; 80053; 82962; 85027; 86780; 93005; 93010; 94640; C9803-CS; U0003; U0005

== ENCOUNTER 2021-05-16 19:38 | Emergency (ER) | payer OTHER ==
[2021-05-16 20:00] VITALS: TEMP 97.7; BMI 22.4
[2021-05-16] MEDS ORDERED: LORazepam 2 MG/ML SDV VIAL IVPUSH ONE (20:02)
[2021-05-16] MEDS ORDERED: ELVITEG/COB/EMTRI/TENOF (GENVOYA) TABLET (NF) PO ONE (20:45)
[2021-05-16 21:33] LABS: BASO % 1.1 % (0-2.0); EOS % 1.5 % (0-4.5); HEMOGLOBIN 14.8 GM/dL (11.7-16.9); LYMPH % 35.9 % (8-40); MCH 29.8 pg (25.7-33.7); MCHC 33.7 g/dl (32.0-35.9); MEAN CELL VOLUME 88.3 fl (80-96); MEAN PLT VOLUME 8.5 fl (7.5-11.1); MONO % 7.3 % (3.8-10.2); NEUT % 54.2 % (42.8-82.8); PLATELET COUNT 259 10^3/uL (134-434); RBC 4.98 M/mm3 (4.00-5.60); RDW 14.2 % (11.9-15.9); WHITE BLOOD COUNT 7.4 K/mm3 (4.0-10.0)
[2021-05-16 21:57] LABS: BLOOD UREA NITROGEN 12.6 mg/dL (7-18); CALCIUM 9.5 mg/dL (8.5-10.1); MAGNESIUM 2.1 mg/dL (1.8-2.4)
[2021-05-16 22:00] LABS: CREATININE 1.1 mg/dL (0.55-1.3)
[2021-05-16 22:02] LABS: BILIRUBIN,TOTAL 0.7 mg/dL (0.2-1)
[2021-05-17 00:21] VITALS: BP 152/96; PULSE 93
[2021-05-18 15:08] LABS: SARS-CoV-2 NAA Not Detected (Not Detected)
== END 2021-05-17 00:41 | disposition home or self-care (01) ==
LOC: JER 19:38
PROC: 3E033NZ Introduction of Analgesics, Hypnotics, Sedatives into Peripheral Vein, Percutaneous Approach (ICD-10-PCS; principal; 2021-05-16)
DX: F10.230 Alcohol dependence with withdrawal, uncomplicated (principal)
CPT/HCPCS: 36415; 71046-TC-FY; 80053; 83735; 84484; 85025; 85379; 87804; 93005; 93010; 96374; 99285-25; C9803-CS; U0003; U0005

== ENCOUNTER 2021-12-08 14:25 | Inpatient (IN) | payer OTHER ==
[2021-12-08 16:45] VITALS: BMI 22.2
[2021-12-08] MEDS ORDERED: BISMUTH SUBSALICYLATE 524 MG/30 ML PO PRN (16:55)
[2021-12-08] MEDS ORDERED: MAG HYDROX/AL HYDROX/SIMETH 30 ML UNIT-DOSE CUP PO PRN (16:55)
[2021-12-08] MEDS ORDERED: BENZOCAINE/MENTHOL (CHLORASEPTIC ) LOZENGE MM PRN (16:55)
[2021-12-08] MEDS ORDERED: ONDANSETRON *ODT* 4 MG TABLET SL PRN (16:55)
[2021-12-08] MEDS ORDERED: P-EPHED 60MG/TRIPROLIDI 2.5MG TABLET PO PRN (16:55)
[2021-12-08] MEDS ORDERED: LOPERAMIDE HCL 2 MG CAPSULE PO PRN (16:55)
[2021-12-08] MEDS ORDERED: ACETAMINOPHEN 325 MG TABLET (FP) PO PRN (16:55)
[2021-12-08] MEDS ORDERED: DICYCLOMINE HCL 10 MG CAPSULE PO PRN (16:55)
[2021-12-08] MEDS ORDERED: MAGNESIUM CITRATE 300 ML BOTTLE PO PRN (16:55)
[2021-12-08] MEDS ORDERED: NICOTINE 10 MG CARTRIDGE (INHALER) IH PRN (16:55)
[2021-12-08] MEDS ORDERED: hydrOXYzine PAMOATE 25 MG CAPSULE (FP) PO PRN (16:55)
[2021-12-08] MEDS ORDERED: IBUPROFEN 400 MG TABLET (FP) PO PRN (16:55)
[2021-12-08] MEDS ORDERED: NICOTINE POLACRILEX 2 MG GUM BUC PRN (16:55)
[2021-12-08] MEDS ORDERED: MAGNESIUM HYDROX 2400MG/30ML ORAL SUSPENSION 30 ML CUP PO PRN (16:55)
[2021-12-08] MEDS ORDERED: chlordiazePOXIDE HCL 25 MG CAPSULE PO PRN (16:56)
[2021-12-08] MEDS ORDERED: INSULIN (NOVOLOG) ASPART 100 UNITS/ML 10ML VIAL ONE (17:00)
[2021-12-08] MEDS: INSULIN SLIDING SCALE (NOVOLOG) 1 VIAL SQ SCH ×2 (17:31→23:07)
[2021-12-08] MEDS ORDERED: chlordiazePOXIDE HCL 25 MG CAPSULE ONE (17:32)
[2021-12-08] MEDS: chlordiazePOXIDE HCL 25 MG CAPSULE PO SCH ×2 (17:33→22:48)
[2021-12-08] MEDS: MELATONIN 5 MG TABLETS PO PRN (22:47)
[2021-12-08] MEDS: THIAMINE HCL 100 MG TABLET (FP) PO SCH (22:47)
[2021-12-08] MEDS: METHOCARBAMOL 500 MG TABLET PO PRN (23:08)
[2021-12-09] MEDS: ACETAMINOPHEN 325 MG TABLET (FP) PO PRN ×4 (01:26→23:04)
[2021-12-09] MEDS: chlordiazePOXIDE HCL 25 MG CAPSULE PO SCH ×4 (06:56→22:51)
[2021-12-09] MEDS: INSULIN SLIDING SCALE (NOVOLOG) 1 VIAL SQ SCH ×4 (08:03→22:48)
[2021-12-09] MEDS: guaiFENesin 200 MG/10 ML 10 ML UNIT-DOSE CUPS PO PRN (08:04)
[2021-12-09] MEDS: PRENATAL VITAMINS W/ FOLIC ACID TABLET (FP) PO SCH (10:53)
[2021-12-09] MEDS: ELVITEG/COB/EMTRI/TENOF (GENVOYA) TABLET (NF) PO SCH (10:53)
[2021-12-09] MEDS: LISINOPRIL 5 MG TABLET PO SCH (10:53)
[2021-12-09] MEDS: FENOFIBRIC ACID 135 MG CAP PO SCH (10:54)
[2021-12-09] MEDS: IBUPROFEN 600 MG TABLET (FP) PO PRN (10:55)
[2021-12-09 11:14] LABS: HEMATOCRIT 43.6 % (35.4-49); HEMOGLOBIN 14.4 GM/dL (11.7-16.9); MCH 30.3 pg (25.7-33.7); MEAN CELL VOLUME 91.9 fl (80-96); MEAN PLT VOLUME 9.6 fl (7.5-11.1); PLATELET COUNT 169 10^3/uL (134-434); RBC 4.75 M/mm3 (4.00-5.60); RDW 13.5 % (11.9-15.9)
[2021-12-09 11:32] LABS: CALCIUM 8.8 mg/dL (8.5-10.1)
[2021-12-09 11:33] LABS: ALBUMIN 3.4 g/dl (3.4-5.0); BLOOD UREA NITROGEN 11.8 mg/dL (7-18)
[2021-12-09 11:36] LABS: CREATININE 1.1 mg/dL (0.55-1.3)
[2021-12-09 11:37] LABS: TOT PROT 7.1 g/dl (6.4-8.2)
[2021-12-09 11:38] LABS: BILIRUBIN,TOTAL 0.4 mg/dL (0.2-1)
[2021-12-09] MEDS ORDERED: FLU VACC QS2022-23(6MOS UP)/PF 60 MCG/0.5 ML SYRINGE IM ONE (12:00)
[2021-12-09] MEDS: THIAMINE HCL 100 MG TABLET (FP) PO SCH (22:48)
[2021-12-09] MEDS: MELATONIN 5 MG TABLETS PO PRN (22:48)
[2021-12-09] MEDS: METHOCARBAMOL 500 MG TABLET PO PRN (22:48)
[2021-12-10] MEDS: INSULIN SLIDING SCALE (NOVOLOG) 1 VIAL SQ SCH ×4 (07:36→22:41)
[2021-12-10] MEDS: chlordiazePOXIDE HCL 25 MG CAPSULE PO SCH ×4 (07:37→22:41)
[2021-12-10] MEDS ORDERED: INSULIN SLIDING SCALE (NOVOLOG) 1 VIAL SQ ONE (07:42)
[2021-12-10] MEDS: PRENATAL VITAMINS W/ FOLIC ACID TABLET (FP) PO SCH (11:16)
[2021-12-10] MEDS: LISINOPRIL 5 MG TABLET PO SCH (11:17)
[2021-12-10] MEDS: FENOFIBRIC ACID 135 MG CAP PO SCH (11:17)
[2021-12-10] MEDS: ELVITEG/COB/EMTRI/TENOF (GENVOYA) TABLET (NF) PO SCH (11:17)
[2021-12-10] MEDS: ACETAMINOPHEN 325 MG TABLET (FP) PO PRN (11:44)
[2021-12-10] MEDS: METHOCARBAMOL 500 MG TABLET PO PRN (11:44)
[2021-12-10] MEDS: THIAMINE HCL 100 MG TABLET (FP) PO SCH (22:41)
[2021-12-11] MEDS ORDERED: chlordiazePOXIDE HCL 10 MG CAPSULE PO PRN
[2021-12-11] MEDS: chlordiazePOXIDE HCL 10 MG CAPSULE PO SCH ×4 (06:18→22:42)
[2021-12-11] MEDS: INSULIN SLIDING SCALE (NOVOLOG) 1 VIAL SQ SCH ×4 (06:29→21:42)
[2021-12-11] MEDS: PRENATAL VITAMINS W/ FOLIC ACID TABLET (FP) PO SCH (11:16)
[2021-12-11] MEDS: LISINOPRIL 5 MG TABLET PO SCH (11:16)
[2021-12-11] MEDS: FENOFIBRIC ACID 135 MG CAP PO SCH (11:17)
[2021-12-11] MEDS: ELVITEG/COB/EMTRI/TENOF (GENVOYA) TABLET (NF) PO SCH (11:17)
[2021-12-11] MEDS: METHOCARBAMOL 500 MG TABLET PO PRN (11:27)
[2021-12-11] MEDS: IBUPROFEN 600 MG TABLET (FP) PO PRN (11:27)
[2021-12-11] MEDS: guaiFENesin 200 MG/10 ML 10 ML UNIT-DOSE CUPS PO PRN ×2 (11:28→18:21)
[2021-12-11] MEDS: ACETAMINOPHEN 325 MG TABLET (FP) PO PRN (18:20)
[2021-12-11] MEDS: MELATONIN 5 MG TABLETS PO PRN (21:41)
[2021-12-11] MEDS: THIAMINE HCL 100 MG TABLET (FP) PO SCH (21:41)
[2021-12-12] MEDS: chlordiazePOXIDE HCL 10 MG CAPSULE PO SCH ×2 (06:36→17:11)
[2021-12-12] MEDS: INSULIN SLIDING SCALE (NOVOLOG) 1 VIAL SQ SCH ×4 (06:51→21:52)
[2021-12-12] MEDS: ELVITEG/COB/EMTRI/TENOF (GENVOYA) TABLET (NF) PO SCH (10:57)
[2021-12-12] MEDS: guaiFENesin 200 MG/10 ML 10 ML UNIT-DOSE CUPS PO PRN ×2 (10:57→22:03)
[2021-12-12] MEDS: ACETAMINOPHEN 325 MG TABLET (FP) PO PRN (10:57)
[2021-12-12] MEDS: LISINOPRIL 5 MG TABLET PO SCH (10:57)
[2021-12-12] MEDS: PRENATAL VITAMINS W/ FOLIC ACID TABLET (FP) PO SCH (10:57)
[2021-12-12] MEDS: FENOFIBRIC ACID 135 MG CAP PO SCH (10:57)
[2021-12-12] MEDS ORDERED: INSULIN SLIDING SCALE (NOVOLOG) 1 VIAL SQ ONE (12:12)
[2021-12-12] MEDS: THIAMINE HCL 100 MG TABLET (FP) PO SCH (21:55)
[2021-12-12] MEDS: MELATONIN 5 MG TABLETS PO PRN (21:55)
[2021-12-13] MEDS ORDERED: chlordiazePOXIDE HCL 10 MG CAPSULE PO ONE (05:00)
[2021-12-13] MEDS: INSULIN SLIDING SCALE (NOVOLOG) 1 VIAL SQ SCH ×2 (06:07→11:19)
[2021-12-13 06:25] VITALS: BP 101/61; PULSE 77; RESP 19; TEMP 98
[2021-12-13] MEDS ORDERED: INSULIN SLIDING SCALE (NOVOLOG) 1 VIAL SQ ONE (07:02)
[2021-12-13] MEDS: ELVITEG/COB/EMTRI/TENOF (GENVOYA) TABLET (NF) PO SCH (11:18)
[2021-12-13] MEDS: PRENATAL VITAMINS W/ FOLIC ACID TABLET (FP) PO SCH (11:18)
[2021-12-13] MEDS: LISINOPRIL 5 MG TABLET PO SCH (11:18)
[2021-12-13] MEDS: FENOFIBRIC ACID 135 MG CAP PO SCH (11:18)
== END 2021-12-13 10:27 | disposition home or self-care (01) | DRG 896 ==
LOC: YASAS 14:25 → Y3N 17:47
PROVIDERS: ADMIT Allergy & Immunology; ATTEND Surgery
PROC: HZ2ZZZZ Detoxification Services for Substance Abuse Treatment (ICD-10-PCS; principal; 2021-12-08)
DX: F10.230 Alcohol dependence with withdrawal, uncomplicated (principal); U07.1 COVID-19; F14.20 Cocaine dependence, uncomplicated; F17.210 Nicotine dependence, cigarettes, uncomplicated; F41.9 Anxiety disorder, unspecified; Z21 Asymptomatic human immunodeficiency virus [HIV] infection status; I10 Essential (primary) hypertension; E78.5 Hyperlipidemia, unspecified; E11.65 Type 2 diabetes mellitus with hyperglycemia; Z79.84 Long term (current) use of oral hypoglycemic drugs; M16.12 Unilateral primary osteoarthritis, left hip
CPT/HCPCS: 36415; 80053; 82962; 85027; 86780; C9803-CS; U0003; U0005

== ENCOUNTER 2022-12-27 12:20 | Inpatient (IN) | payer OTHER ==
[2022-12-27 13:27] VITALS: BMI 23.5
[2022-12-27] MEDS ORDERED: guaiFENesin 600 MG TABLET.ER (FP) PO PRN (13:29)
[2022-12-27] MEDS ORDERED: ACETAMINOPHEN 325 MG TABLET (FP) PO PRN (13:29)
[2022-12-27] MEDS ORDERED: NALOXONE HCL (KLOXXADO) 8 MG SPRAY NS PRN (13:29)
[2022-12-27] MEDS ORDERED: ONDANSETRON *ODT* 4 MG TABLET SL PRN (13:29)
[2022-12-27] MEDS ORDERED: IBUPROFEN 600 MG TABLET (FP) PO PRN (13:29)
[2022-12-27] MEDS ORDERED: BISMUTH SUBSALICYLATE 524 MG/30 ML PO PRN (13:29)
[2022-12-27] MEDS ORDERED: BENZONATATE 200 MG CAPSULE PO PRN (13:29)
[2022-12-27] MEDS ORDERED: MAG HYDROX/AL HYDROX/SIMETH 30 ML UNIT-DOSE CUP PO PRN (13:29)
[2022-12-27] MEDS ORDERED: POLYETHYLENE GLYCOL (HEALTHYLAX) 3350 17 GM PACKET PO PRN (13:29)
[2022-12-27] MEDS ORDERED: NALOXONE HCL 0.4 MG/ML VIAL IM PRN (13:29)
[2022-12-27] MEDS ORDERED: MAGNESIUM HYDROX 2400MG/30ML ORAL SUSPENSION 30 ML CUP PO PRN (13:29)
[2022-12-27] MEDS ORDERED: IBUPROFEN 400 MG TABLET (FP) PO PRN (13:29)
[2022-12-27] MEDS ORDERED: NICOTINE POLACRILEX 2 MG GUM BUC PRN (13:29)
[2022-12-27] MEDS ORDERED: LOPERAMIDE HCL 2 MG CAPSULE PO PRN (13:29)
[2022-12-27] MEDS ORDERED: BENZOCAINE/MENTHOL (CHLORASEPTIC ) LOZENGE MM PRN (13:29)
[2022-12-27] MEDS: INSULIN SLIDING SCALE (NOVOLOG) 1 VIAL SQ SCH (17:44)
[2022-12-27] MEDS: diazePAM 5 MG TABLET PO PRN (18:05)
[2022-12-27] MEDS: THIAMINE HCL 100 MG TABLET (FP) PO SCH (22:26)
[2022-12-27] MEDS: MELATONIN 5 MG TABLETS PO SCH (22:26)
[2022-12-27] MEDS: diazePAM 5 MG TABLET PO SCH (22:26)
[2022-12-28] MEDS: diazePAM 5 MG TABLET PO PRN (03:47)
[2022-12-28] MEDS: diazePAM 5 MG TABLET PO SCH ×4 (05:47→22:03)
[2022-12-28] MEDS: INSULIN SLIDING SCALE (NOVOLOG) 1 VIAL SQ SCH ×2 (06:54→17:05)
[2022-12-28] MEDS ORDERED: INSULIN SLIDING SCALE (NOVOLOG) 1 VIAL SQ ONE (07:02)
[2022-12-28] MEDS: LISINOPRIL 5 MG TABLET PO SCH (10:26)
[2022-12-28] MEDS: PRENATAL VITAMINS W/ FOLIC ACID TABLET (FP) PO SCH (10:26)
[2022-12-28] MEDS: NICOTINE 21 MG/24 HOURS TOPICAL PATCH TD SCH (10:26)
[2022-12-28 10:27] LABS: CHLORIDE 101 mmol/L (98-107); POTASSIUM 4.1 mmol/L (3.5-5.1); SODIUM 132 mmol/L (136-145)
[2022-12-28 10:31] LABS: ALBUMIN 3.4 g/dl (3.4-5.0); ANION GAP 3 mmol/L (4-13); BLOOD UREA NITROGEN 15.1 mg/dL (7-18); CALCIUM 8.9 mg/dL (8.5-10.1); CO2 28 mmol/L (21-32)
[2022-12-28 10:32] LABS: GLUCOSE,RANDOM 278 mg/dL (74-106)
[2022-12-28 10:34] LABS: SGPT/ALT 37 U/L (13-61)
[2022-12-28 10:35] LABS: HEMATOCRIT 44.5 % (35.4-49); MCH 31.5 pg (25.7-33.7); MCHC 33.8 g/dl (32.0-35.9); MEAN CELL VOLUME 93.2 fl (80-96); MEAN PLT VOLUME 8.5 fl (7.5-11.1); PLATELET COUNT 203 10^3/uL (134-434); RBC 4.77 M/mm3 (4.00-5.60); RDW 13.8 % (11.9-15.9); SGOT/AST 30 U/L (15-37); WHITE BLOOD COUNT 7.9 K/mm3 (4.0-10.0)
[2022-12-28 10:36] LABS: BILIRUBIN,TOTAL 1.2 mg/dL (0.2-1); TOT PROT 6.5 g/dl (6.4-8.2)
[2022-12-28 10:37] LABS: ALK PHOS 110 U/L (45-117)
[2022-12-28] MEDS: MELATONIN 5 MG TABLETS PO SCH (22:02)
[2022-12-28] MEDS: THIAMINE HCL 100 MG TABLET (FP) PO SCH (22:03)
[2022-12-29] MEDS: diazePAM 5 MG TABLET PO SCH ×3 (05:14→22:18)
[2022-12-29] MEDS: INSULIN SLIDING SCALE (NOVOLOG) 1 VIAL SQ SCH ×2 (07:38→17:25)
[2022-12-29] MEDS: ESCITALOPRAM OXALATE 10 MG TABLET PO SCH (09:55)
[2022-12-29] MEDS: PRENATAL VITAMINS W/ FOLIC ACID TABLET (FP) PO SCH (09:55)
[2022-12-29] MEDS: LISINOPRIL 5 MG TABLET PO SCH (09:55)
[2022-12-29] MEDS: NICOTINE 21 MG/24 HOURS TOPICAL PATCH TD SCH (09:56)
[2022-12-29] MEDS: ELVITEG/COB/EMTRI/TENOF (GENVOYA) TABLET PO SCH (12:30)
[2022-12-29] MEDS: FENOFIBRIC ACID 135 MG CAP PO SCH (12:30)
[2022-12-29] MEDS: MELATONIN 5 MG TABLETS PO SCH (22:18)
[2022-12-29] MEDS: THIAMINE HCL 100 MG TABLET (FP) PO SCH (22:18)
[2022-12-29] MEDS: INSULIN (LEVEMIR) 100 UNITS/ML UNITS SQ SCH (22:19)
[2022-12-30] MEDS: diazePAM 5 MG TABLET PO SCH ×2 (05:29→17:02)
[2022-12-30] MEDS: INSULIN SLIDING SCALE (NOVOLOG) 1 VIAL SQ SCH ×2 (06:07→16:45)
[2022-12-30] MEDS: ELVITEG/COB/EMTRI/TENOF (GENVOYA) TABLET PO SCH (07:06)
[2022-12-30] MEDS: PRENATAL VITAMINS W/ FOLIC ACID TABLET (FP) PO SCH (09:50)
[2022-12-30] MEDS: FENOFIBRIC ACID 135 MG CAP PO SCH (09:50)
[2022-12-30] MEDS: ESCITALOPRAM OXALATE 10 MG TABLET PO SCH (09:50)
[2022-12-30] MEDS: LISINOPRIL 5 MG TABLET PO SCH (09:50)
[2022-12-30] MEDS: NICOTINE 21 MG/24 HOURS TOPICAL PATCH TD SCH (09:51)
[2022-12-30] MEDS: INSULIN (LEVEMIR) 100 UNITS/ML UNITS SQ SCH (21:42)
[2022-12-30] MEDS: MELATONIN 5 MG TABLETS PO SCH (21:43)
[2022-12-30] MEDS: THIAMINE HCL 100 MG TABLET (FP) PO SCH (21:43)
[2022-12-31] MEDS ORDERED: diazePAM 5 MG TABLET PO ONE (06:00)
[2022-12-31] MEDS: INSULIN SLIDING SCALE (NOVOLOG) 1 VIAL SQ SCH (06:17)
[2022-12-31 06:38] VITALS: RESP 16
[2022-12-31] MEDS: ELVITEG/COB/EMTRI/TENOF (GENVOYA) TABLET PO SCH (07:34)
[2022-12-31] MEDS: ESCITALOPRAM OXALATE 10 MG TABLET PO SCH (09:01)
[2022-12-31] MEDS: FENOFIBRIC ACID 135 MG CAP PO SCH (09:02)
[2022-12-31] MEDS: LISINOPRIL 5 MG TABLET PO SCH (09:02)
[2022-12-31] MEDS: PRENATAL VITAMINS W/ FOLIC ACID TABLET (FP) PO SCH (09:02)
[2022-12-31] MEDS: NICOTINE 21 MG/24 HOURS TOPICAL PATCH TD SCH (09:02)
[2022-12-31 09:11] VITALS: BP 138/93; PULSE 86; TEMP 97.7
== END 2022-12-31 08:50 | disposition home or self-care (01) | DRG 897 ==
LOC: YASAS 12:20 → Y3N 15:24
PROVIDERS: ADMIT Allergy & Immunology; ATTEND Surgery
PROC: HZ2ZZZZ Detoxification Services for Substance Abuse Treatment (ICD-10-PCS; principal; 2022-12-27)
DX: F10.230 Alcohol dependence with withdrawal, uncomplicated (principal); F14.20 Cocaine dependence, uncomplicated; F17.210 Nicotine dependence, cigarettes, uncomplicated; F41.9 Anxiety disorder, unspecified; Z21 Asymptomatic human immunodeficiency virus [HIV] infection status; I10 Essential (primary) hypertension; E78.2 Mixed hyperlipidemia; K21.9 Gastro-esophageal reflux disease without esophagitis; E11.9 Type 2 diabetes mellitus without complications; Z79.4 Long term (current) use of insulin; Z87.19 Personal history of other diseases of the digestive system; Z86.19 Personal history of other infectious and parasitic diseases; Z56.0 Unemployment, unspecified
CPT/HCPCS: 36415; 80053; 80307; 82962; 85027; 86780; 87635; 87811; 93005; 93010

== ENCOUNTER 2023-03-05 13:06 | Inpatient (IN) | payer OTHER ==
[2023-03-05 14:34] VITALS: BMI 23.5
[2023-03-05] MEDS ORDERED: ONDANSETRON *ODT* 4 MG TABLET SL PRN (17:08)
[2023-03-05] MEDS ORDERED: MAGNESIUM HYDROX 2400MG/30ML ORAL SUSPENSION 30 ML CUP PO PRN (17:08)
[2023-03-05] MEDS ORDERED: POLYETHYLENE GLYCOL (HEALTHYLAX) 3350 17 GM PACKET PO PRN (17:08)
[2023-03-05] MEDS ORDERED: P-EPHED 60MG/TRIPROLIDI 2.5MG TABLET PO PRN (17:08)
[2023-03-05] MEDS ORDERED: BENZONATATE 200 MG CAPSULE PO PRN (17:08)
[2023-03-05] MEDS ORDERED: IBUPROFEN 600 MG TABLET (FP) PO PRN (17:08)
[2023-03-05] MEDS ORDERED: BISMUTH SUBSALICYLATE 524 MG/30 ML PO PRN (17:08)
[2023-03-05] MEDS ORDERED: IBUPROFEN 400 MG TABLET (FP) PO PRN (17:08)
[2023-03-05] MEDS ORDERED: MAG HYDROX/AL HYDROX/SIMETH 30 ML UNIT-DOSE CUP PO PRN (17:08)
[2023-03-05] MEDS ORDERED: METHOCARBAMOL 500 MG TABLET PO PRN (17:08)
[2023-03-05] MEDS ORDERED: BENZOCAINE/MENTHOL (CHLORASEPTIC ) LOZENGE MM PRN (17:08)
[2023-03-05] MEDS ORDERED: ACETAMINOPHEN 325 MG TABLET (FP) PO PRN (17:08)
[2023-03-05] MEDS ORDERED: NICOTINE POLACRILEX 2 MG LOZENGE BC PRN (17:08)
[2023-03-05] MEDS ORDERED: LOPERAMIDE HCL 2 MG CAPSULE PO PRN (17:08)
[2023-03-05] MEDS ORDERED: guaiFENesin 600 MG TABLET.ER (FP) PO PRN (17:08)
[2023-03-05] MEDS ORDERED: DICYCLOMINE HCL 10 MG CAPSULE PO PRN (17:08)
[2023-03-05] MEDS ORDERED: INSULIN (NOVOLOG) ASPART 100 UNITS/ML 10ML VIAL ONE (17:46)
[2023-03-05] MEDS: INSULIN ASPART SLIDING SCALE (NOVOLOG) 1 VIAL SQ SCH ×2 (17:54→22:18)
[2023-03-05] MEDS: THIAMINE HCL 100 MG TABLET (FP) PO SCH (22:17)
[2023-03-05] MEDS: MELATONIN 5 MG TABLETS PO SCH (22:18)
[2023-03-06] MEDS: PRENATAL VITAMINS W/ FOLIC ACID TABLET (FP) PO SCH (10:12)
[2023-03-06] MEDS: ESCITALOPRAM OXALATE 10 MG TABLET PO SCH (10:17)
[2023-03-06] MEDS: FENOFIBRIC ACID 135 MG CAP PO SCH (10:18)
[2023-03-06] MEDS ORDERED: INSULIN (NOVOLOG) ASPART 100 UNITS/ML 10ML VIAL ONE ×3 (11:25→22:07)
[2023-03-06] MEDS: FLU VACCINE (FLULAVAL) PF 60 MCG/0.5 ML SYRINGE 2023-2024 IM ONE (11:27)
[2023-03-06 11:38] LABS: HEMATOCRIT 43.7 % (35.4-49); HEMOGLOBIN 14.1 GM/dL (11.7-16.9); MCH 30.2 pg (25.7-33.7); MCHC 32.3 g/dl (32.0-35.9); MEAN CELL VOLUME 93.4 fl (80-96); PLATELET COUNT 197 10^3/uL (134-434); RBC 4.68 M/mm3 (4.00-5.60); WHITE BLOOD COUNT 9.1 K/mm3 (4.0-10.0)
[2023-03-06 11:42] LABS: CHLORIDE 103 mmol/L (98-107); POTASSIUM 4.6 mmol/L (3.5-5.1); SODIUM 139 mmol/L (136-145)
[2023-03-06] MEDS: ELVITEG/COB/EMTRI/TENOF (GENVOYA) TABLET PO SCH (11:42)
[2023-03-06 11:46] LABS: ALBUMIN 3.3 g/dl (3.4-5.0); BLOOD UREA NITROGEN 8.6 mg/dL (7-18); GLUCOSE,RANDOM 199 mg/dL (74-106)
[2023-03-06 11:47] LABS: ANION GAP 7 mmol/L (4-13); CALCIUM 9.3 mg/dL (8.5-10.1); CO2 29 mmol/L (21-32)
[2023-03-06 11:49] LABS: CREATININE 0.9 mg/dL (0.55-1.3); SGOT/AST 21 U/L (15-37); SGPT/ALT 17 U/L (13-61)
[2023-03-06 11:50] LABS: BILIRUBIN,TOTAL 0.8 mg/dL (0.2-1); TOT PROT 6.8 g/dl (6.4-8.2)
[2023-03-06 11:52] LABS: ALK PHOS 122 U/L (45-117)
[2023-03-06] MEDS ORDERED: SUVOREXANT 5 MG TABLET PO PRN (22:05)
[2023-03-06] MEDS: SUVOREXANT 10 MG TABLET PO PRN (22:09)
[2023-03-07 09:27] VITALS: BP 116/79; PULSE 66; RESP 17; TEMP 98.4
== END 2023-03-07 11:33 | disposition home or self-care (01) | DRG 897 ==
LOC: YASAS 13:06 → Y6N 17:54
PROVIDERS: ADMIT Allergy & Immunology; ATTEND Surgery
PROC: HZ2ZZZZ Detoxification Services for Substance Abuse Treatment (ICD-10-PCS; principal; 2023-03-05)
DX: F10.230 Alcohol dependence with withdrawal, uncomplicated (principal); F14.20 Cocaine dependence, uncomplicated; F19.282 Other psychoactive substance dependence with psychoactive substance-induced sleep disorder; F17.210 Nicotine dependence, cigarettes, uncomplicated; F41.9 Anxiety disorder, unspecified; Z21 Asymptomatic human immunodeficiency virus [HIV] infection status; I10 Essential (primary) hypertension; E78.5 Hyperlipidemia, unspecified; E11.65 Type 2 diabetes mellitus with hyperglycemia; M16.12 Unilateral primary osteoarthritis, left hip; Z87.19 Personal history of other diseases of the digestive system
CPT/HCPCS: 0241U-QW; 36415; 80053; 80307; 82962; 85027; 86780; 87635; 87811; 90686; G0008

== ENCOUNTER 2023-09-07 12:04 | Inpatient (IN) | payer OTHER ==
[2023-09-07 13:24] VITALS: BMI 23.6
[2023-09-07] MEDS ORDERED: BENZOCAINE/MENTHOL (CHLORASEPTIC ) LOZENGE MM PRN (13:57)
[2023-09-07] MEDS ORDERED: DICYCLOMINE HCL 10 MG CAPSULE PO PRN (13:57)
[2023-09-07] MEDS ORDERED: POLYETHYLENE GLYCOL (HEALTHYLAX) 3350 17 GM PACKET PO PRN (13:57)
[2023-09-07] MEDS ORDERED: IBUPROFEN 400 MG TABLET (FP) PO PRN (13:57)
[2023-09-07] MEDS ORDERED: NICOTINE POLACRILEX 2 MG GUM BUC PRN (13:57)
[2023-09-07] MEDS ORDERED: MAGNESIUM HYDROX 2400MG/30ML ORAL SUSPENSION 30 ML CUP PO PRN (13:57)
[2023-09-07] MEDS ORDERED: LOPERAMIDE HCL 2 MG CAPSULE PO PRN (13:57)
[2023-09-07] MEDS ORDERED: ACETAMINOPHEN 325 MG TABLET (FP) PO PRN (13:57)
[2023-09-07] MEDS ORDERED: BISMUTH SUBSALICYLATE 524 MG/30 ML PO PRN (13:57)
[2023-09-07] MEDS ORDERED: IBUPROFEN 600 MG TABLET (FP) PO PRN (13:57)
[2023-09-07] MEDS ORDERED: MAG HYDROX/AL HYDROX/SIMETH 30 ML UNIT-DOSE CUP PO PRN (13:57)
[2023-09-07] MEDS ORDERED: ONDANSETRON *ODT* 4 MG TABLET SL PRN (13:57)
[2023-09-07] MEDS ORDERED: guaiFENesin 600 MG TABLET.ER (FP) PO PRN (13:57)
[2023-09-07] MEDS ORDERED: NICOTINE POLACRILEX 2 MG LOZENGE BC PRN (13:57)
[2023-09-07] MEDS ORDERED: BENZONATATE 200 MG CAPSULE PO PRN (13:57)
[2023-09-07] MEDS ORDERED: INSULIN (NOVOLOG) ASPART 100 UNITS/ML 10ML VIAL ONE (15:24)
[2023-09-07] MEDS: INSULIN ASPART SLIDING SCALE (NOVOLOG) 1 VIAL SQ SCH (15:28)
[2023-09-07] MEDS: hydrOXYzine PAMOATE 50 MG CAPSULE (FP) PO ONE (19:11)
[2023-09-07] MEDS: THIAMINE 100 MG TABLET PO SCH (23:05)
[2023-09-07] MEDS: MELATONIN 5 MG TABLETS PO SCH (23:05)
[2023-09-07] MEDS: diazePAM 5 MG TABLET PO SCH (23:16)
[2023-09-08] MEDS: PRENATAL VITAMINS W/ FOLIC ACID TABLET (FP) PO SCH (10:15)
[2023-09-08 10:54] LABS: HEMATOCRIT 38.9 % (35.4-49); HEMOGLOBIN 13.2 GM/dL (11.7-16.9); MCH 30.7 pg (25.7-33.7); MCHC 33.9 g/dl (32.0-35.9); MEAN CELL VOLUME 90.6 fl (80-96); MEAN PLT VOLUME 8.7 fl (7.5-11.1); PLATELET COUNT 188 10^3/uL (134-434); RBC 4.29 M/mm3 (4.00-5.60); RDW 14.3 % (11.9-15.9); WHITE BLOOD COUNT 7.2 K/mm3 (4.0-10.0)
[2023-09-08 10:58] LABS: CHLORIDE 99 mmol/L (98-107); SODIUM 133 mmol/L (136-145)
[2023-09-08 11:01] LABS: CALCIUM 8.2 mg/dL (8.5-10.1)
[2023-09-08 11:02] LABS: ALBUMIN 3.2 g/dl (3.4-5.0); ANION GAP 9 mmol/L (4-13); BLOOD UREA NITROGEN 13.8 mg/dL (7-18); CO2 25 mmol/L (21-32); GLUCOSE,RANDOM 385 mg/dL (74-106)
[2023-09-08 11:04] LABS: SGPT/ALT 39 U/L (13-61)
[2023-09-08 11:05] LABS: BILIRUBIN,TOTAL 0.7 mg/dL (0.2-1); SGOT/AST 24 U/L (15-37); TOT PROT 6.6 g/dl (6.4-8.2)
[2023-09-08 11:07] LABS: ALK PHOS 171 U/L (45-117)
[2023-09-08] MEDS ORDERED: INSULIN (NOVOLOG) ASPART 100 UNITS/ML 10ML VIAL ONE (21:50)
[2023-09-08] MEDS: SUVOREXANT 10 MG TABLET PO PRN (22:00)
[2023-09-09] MEDS: diazePAM 5 MG TABLET PO PRN (01:19)
[2023-09-09 06:06] VITALS: RESP 17
[2023-09-09] MEDS: diazePAM 5 MG TABLET PO SCH (06:22)
[2023-09-09 08:50] VITALS: BP 122/90; PULSE 88; TEMP 97.3
[2023-09-09] MEDS: LISINOPRIL 5 MG TABLET PO SCH (09:34)
[2023-09-09] MEDS: ELVITEG/COB/EMTRI/TENOF (GENVOYA) TABLET PO SCH (09:34)
[2023-09-09] MEDS ORDERED: INSULIN (LEVEMIR) 100 UNITS/ML UNITS SQ SCH (22:00)
[2023-09-10] MEDS ORDERED: diazePAM 5 MG TABLET PO SCH (06:00)
[2023-09-11] MEDS ORDERED: diazePAM 5 MG TABLET PO ONE (06:00)
== END 2023-09-09 11:49 | disposition home or self-care (01) | DRG 897 ==
LOC: YASAS 12:04 → Y6N 15:19
PROVIDERS: ADMIT Allergy & Immunology; ATTEND Surgery
PROC: HZ2ZZZZ Detoxification Services for Substance Abuse Treatment (ICD-10-PCS; principal; 2023-09-07)
DX: F11.23 Opioid dependence with withdrawal (principal); F14.20 Cocaine dependence, uncomplicated; F10.230 Alcohol dependence with withdrawal, uncomplicated; F17.210 Nicotine dependence, cigarettes, uncomplicated; F10.280 Alcohol dependence with alcohol-induced anxiety disorder; F10.282 Alcohol dependence with alcohol-induced sleep disorder; Z21 Asymptomatic human immunodeficiency virus [HIV] infection status; I10 Essential (primary) hypertension; K21.9 Gastro-esophageal reflux disease without esophagitis; E11.9 Type 2 diabetes mellitus without complications; Z79.4 Long term (current) use of insulin
CPT/HCPCS: 36415; 80053; 80305; 80307; 82962; 85027; 86780